=== PATIENT | female | born 1965 | race Caucasian/White ===

== ENCOUNTER → 2020-04-22 14:53 | Outpatient (BNVA) | payer OTHER, SELFPAY | PROVIDERS: PCP Physician Assistant; Visit Provider Surgery | DX: K43.9 Ventral hernia without obstruction or gangrene (principal); J44.9 Chronic obstructive pulmonary disease, unspecified; F17.200 Nicotine dependence, unspecified, uncomplicated; Z71.6 Tobacco abuse counseling | CPT/HCPCS: 99212 ==

== ENCOUNTER 2020-05-07 09:49 | Day surgery (SDC) | payer OTHER, SELFPAY ==
[2020-04-29 19:29] VITALS: BMI 27.1
--- NOTE | 2020-05-06 09:29 | P.CONAN_ITS ---
Documented by User: Blanca Pearl 05/06/20 09:32 HPI - Anesthesia Eval Consult details Narrative: 54yo F for Hernia Repair Epigastric with Poss PMFSH Active Problems Active Problems: All Active Problems (Updated 04/29/20 @ 19:28 by Marianela Yeboah RN) COPD (chronic obstructive pulmonary disease) (Acute) Fibromyalgia (Acute) Hypothyroid (Acute) HLD (hyperlipidemia) (Acute) Gastroparesis (Acute) Cervical spine pain (Acute) Smoker (Acute) Asthma (Acute) Epigastric hernia (Acute) Past Medical History Medical History Anxiety Arthritis Asthma Back pain COPD (chronic obstructive pulmonary disease) Depression Epigastric hernia Fibromyalgia Gastroparesis GERD (gastroesophageal reflux disease) HLD (hyperlipidemia) Hypothyroid Smoker Family History Family History Father Stroke Mother No problems noted. Family/Other Diabetes Coronary artery disease Brother No problems noted. Sister No problems noted. Surgical History Surgical History History of cholecystectomy Social History Social History Smoking Status: Current every day smoker Packs Per Day: 0.5 Cigarettes Per Day: 10.0 Years Smoked: 20 Smoked in Last 30 Days: Yes Patient Interested in Nicotine Replacement: No Use of substances other than those prescribed or required for medical reasons: Yes Substance Use Frequency: Weekly Advance Directives: No Advance Directives Information Provided: No Advance Directives on File: No Recently lost weight without trying: No Meds Allergies Allergy/AdvReac Type Severity Reaction Status Date / Time amoxicillin Allergy Mild Constipatio Verified 05/07/20 10:17 n Home Medications Medication Instructions Recorded Confirmed Last Taken Type benztropine 1 mg tablet 1 mg PO .daily at bedtime tab 12/29/19 04/29/20 Unknown History docusate sodium 100 mg capsule 100 mg PO BID 12/29/19 04/29/20 Unknown History levothyroxine 75 mcg tablet 75 mcg PO DAILY 12/29/19 04/29/20 05/07/20 09:45 History loperamide 2 mg tablet 2 mg PO Q6H PRN 12/29/19 04/29/20 Unknown History sertraline 100 mg tablet 100 mg PO .2 tablets once a day 12/29/19 04/29/20 Unknown History tab cholecalciferol (vitamin D3) 50 50 mcg PO DAILY 04/12/20 04/29/20 Unknown History mcg (2,000 unit) capsule clonazepam 0.5 mg tablet 0.5 mg PO BID PRN 04/12/20 04/29/20 05/07/20 09:45 History mirtazapine 30 mg tablet 30 mg PO BEDTIME 04/12/20 04/29/20 Unknown History omeprazole 20 mg capsule,delayed 40 mg PO DAILY 04/12/20 04/29/20 05/07/20 09:45 History release risperidone 1 mg tablet 1 mg PO BEDTIME 04/12/20 04/29/20 Unknown History psyllium husk (with sugar) 3 1 tbsp PO DAILY 04/22/20 04/29/20 Unknown History gram/7 gram oral powder riboflavin (vitamin B2) 100 mg 200 mg PO BID 04/22/20 04/29/20 Unknown History tablet Exam Exam Date and Time: May 06, 2020 0929 Height,Weight and Vital Signs: Height 5 ft Weight 63.049 kg Assessment and Plan Assessment Anesthesia Assessment: Chart Reviewed Documented by User: Claribel Franklin 05/07/20 12:17 [facility] Past Medical History Medical History Anxiety Arthritis Asthma Back pain COPD (chronic obstructive pulmonary disease) Depression Epigastric hernia Fibromyalgia Gastroparesis GERD (gastroesophageal reflux disease) HLD (hyperlipidemia) Hypothyroid Smoker Family History Family History Father Stroke Mother No problems noted. Family/Other Diabetes Coronary artery disease Brother No problems noted. Sister No problems noted. Family history of problems with anesthesia: No Surgical History Surgical History History of cholecystectomy History of Problems with Anesthesia: No Social History Social History Smoking Status: Current every day smoker Packs Per Day: 0.5 Cigarettes Per Day: 10.0 Years Smoked: 20 Smoked in Last 30 Days: Yes Patient Interested in Nicotine Replacement: No Use of substances other than those prescribed or required for medical reasons: Yes Substance Use Frequency: Weekly Advance Directives: No Advance Directives Information Provided: No Advance Directives on File: No Recently lost weight without trying: No Meds Allergies Allergy/AdvReac Type Severity Reaction Status Date / Time amoxicillin Allergy Mild Constipatio Verified 05/07/20 10:17 n Home Medications Medication Instructions Recorded Confirmed Last Taken Type benztropine 1 mg tablet 1 mg PO .daily at bedtime tab 12/29/19 04/29/20 Unknown History docusate sodium 100 mg capsule 100 mg PO BID 12/29/19 04/29/20 Unknown History levothyroxine 75 mcg tablet 75 mcg PO DAILY 12/29/19 04/29/20 05/07/20 09:45 History loperamide 2 mg tablet 2 mg PO Q6H PRN 12/29/19 04/29/20 Unknown History sertraline 100 mg tablet 100 mg PO .2 tablets once a day 12/29/19 04/29/20 Unknown History tab cholecalciferol (vitamin D3) 50 50 mcg PO DAILY 04/12/20 04/29/20 Unknown History mcg (2,000 unit) capsule clonazepam 0.5 mg tablet 0.5 mg PO BID PRN 04/12/20 04/29/20 05/07/20 09:45 History mirtazapine 30 mg tablet 30 mg PO BEDTIME 04/12/20 04/29/20 Unknown History omeprazole 20 mg capsule,delayed 40 mg PO DAILY 04/12/20 04/29/20 05/07/20 09:45 History release risperidone 1 mg tablet 1 mg PO BEDTIME 04/12/20 04/29/20 Unknown History psyllium husk (with sugar) 3 1 tbsp PO DAILY 04/22/20 04/29/20 Unknown History gram/7 gram oral powder riboflavin (vitamin B2) 100 mg 200 mg PO BID 04/22/20 04/29/20 Unknown History tablet Exam Height,Weight and Vital Signs: Vital Signs Temp Pulse Resp BP Pulse Ox 05/07/20 10:39 97.4 F 75 24 H 121/77 94 Airway Mallampati Class: II TM Dist: >3cm Neck ROM: Full Denture: Upper and Lower Heart: RRR Lungs: CTAB Assessment and Plan Assessment Anesthesia Assessment: Anesthesia Plan Discussed and Chart Reviewed Final Anesthetic Review NPO: Yes ASA Class: II Final Preanesthetic Review: No Changes in Pt Med Stat, Meds/Allgs Chart Reviewed, Consent Obtained/Reviewed and Anes Risks/Benef Reviewed Patient Risk: Intermediate Procedure Risk: Low Assessment/Block/Sedation in SS: Assess/Block/Sedation-SS Anesthetic Plan Anesthetic Plan: GA Disposition: Standard PACU
[2020-05-07] VITALS (11 sets, daily range): BP systolic 100–138; BP diastolic 52–77; PULSE 75–93; RESP 14–24; TEMP 36.3–37.1; O2SAT 94–100
[2020-05-07] MEDS: Lactated Ringers 1,000 ML 100 ML IVCONT (10:54)
[2020-05-07] MEDS: Albuterol Sulfate (0.083%) 2.5 MG/3 ML VIAL.NEB INHALE (11:04)
--- NOTE | 2020-05-07 11:54 | MHC.SHP ---
Pre-Procedural Eval Section B Chief Complaint: Epigastric hernia Allergies: Allergies Allergy/AdvReac Type Severity Reaction Status Date / Time amoxicillin Allergy Mild Constipatio Verified 05/07/20 10:17 n Plan I have reviewed the history and physical and performed a pertinent physical examination on my patient. No changes have occurred unless specified.
--- NOTE | 2020-05-07 12:28 | PC.NURSE ---
pt lung sounds tight with expiratory wheezing noted. sob with dressing/getting into bed. Dr. Franklin informed. pt received an up draft. resp easy and reg lung sounds better airflow with slight exp wheeze noted bilat.
--- NOTE | 2020-05-07 13:05 | W.PM.OPN ---
Operative Note Operative Note Date of Service: 05/07/20 Narrative: Preop diagnosis: Epigastric hernia Postop diagnosis: Epigastric hernia Procedure: Repair of epigastric hernia with Ventralex mesh Surgeon: Kaz Peralta MD architectural administrative assistant: KEERTHI Miles The patient is a 54-year-old female with a reducible mass on the epigastric area. This was consistent with an epigastric hernia. She describes pain and discomfort. She therefore wanted to proceed with repair. She understood technique of repair with mesh. She was aware of the risks, benefits, and alternatives. She was brought to the operating room placed supine on the table under general anesthesia via laryngeal mask airway. The abdomen is prepped and draped this herself fashion. A surgical time-out was done. The patient received cefazolin 2 g IV preoperatively. I infiltrated the planned line incision with lidocaine 1%. The incision was made on the skin long which was only using blade 15. This carried down to full-thickness skin subcutaneous fat. We continued to dissect through the thick subcutaneous fat with electrocautery as well as Metzenbaum scissors until we reached the fascia. By doing so able to visualize the fascial defect. The hernia sac was also seen. We continued to dissect the sac around the fascia to separate this from the fascial edge. This was done with sharp dissection using electrocautery. We were able to then completely reduce the hernia sac completely through the defect. The hernia was fat containing and did not involve any bowel loop. I proceeded to sharply dissect the rest of the adhesions tethering the sac to the fascial edge to allow as good margins around the underside of the defect for placement of the mesh. The defect was about 2 cm in diameter. I therefore used a small sized Ventralex mesh. This was position underneath the abdominal wall and was flattened. This provided adequate coverage of the entire fascial defect. I secured the Prolene straps of the mesh to the fascial edge with Prolene 2 sutures on both sides. The Prolene straps were then trimmed flushed on the fascial level. I closed the fascia with a [id number] Maxon 1 stitch. Irrigation was done. The subcutaneous layer was reapposed with Dexon 3-0 sutures. Skin closure achieved with Dexon 4-0 subcuticular running stitch. Steri-Strips and dressings were applied. The incision was infiltrated with Marcaine 0.5% for postop analgesia. The procedure was then completed The patient tolerated the procedure well. No immediate complications were noted. Initial and final counts of sponges and instruments were correct. Estimated blood loss about 2 cc. The patient was extubated without difficulty and transferred to recovery room with stable vital signs.
[2020-05-07] MEDS: ondansetron HCL 4 MG/2 ML VIAL IVPUSH (13:39)
[2020-05-07] MEDS: fentaNYL citrate/PF 100 MCG/2 ML VIAL 25 MCG IVPUSH ×4 (13:40→13:55)
[2020-05-07] MEDS: Acetaminophen 325 MG TABLET 650 MG PO (14:02)
[2020-05-07] MEDS: oxyCODONE HCl Immed Release 5 MG TABLET PO (14:02)
== END 2020-05-07 15:10 | disposition home or self-care (01) ==
PROVIDERS: PCP Physician Assistant; Visit Provider Surgery
PROC: (CPT 49570; principal; 2020-05-07 12:40)
DX: K43.9 Ventral hernia without obstruction or gangrene (principal); K66.0 Peritoneal adhesions (postprocedural) (postinfection); J44.9 Chronic obstructive pulmonary disease, unspecified; Z90.49 Acquired absence of other specified parts of digestive tract; F17.210 Nicotine dependence, cigarettes, uncomplicated; Z79.899 Other long term (current) drug therapy
CPT/HCPCS: 49570; 94640; C1781; J0690; J1100; J2250; J2405; J2765; J3010

== ENCOUNTER → 2020-05-31 13:15 | Outpatient (BNVA) | payer OTHER, SELFPAY | PROVIDERS: PCP Physician Assistant; Visit Provider Surgery | DX: Z48.815 Encounter for surgical aftercare following surgery on the digestive system (principal); Z87.19 Personal history of other diseases of the digestive system | CPT/HCPCS: 99212 ==

== ENCOUNTER → 2020-07-01 15:00 | Outpatient (BNVA) | payer OTHER, SELFPAY | PROVIDERS: PCP Physician Assistant; Visit Provider Nurse Practitioner | DX: K31.84 Gastroparesis (principal); K58.2 Mixed irritable bowel syndrome; K21.9 Gastro-esophageal reflux disease without esophagitis; K90.89 Other intestinal malabsorption | CPT/HCPCS: Q3014 ==

== ENCOUNTER → 2021-01-03 10:47 | Outpatient (BNVA) | payer OTHER, SELFPAY | PROVIDERS: PCP Physician Assistant; Visit Provider Nurse Practitioner | DX: Z13.89 Encounter for screening for other disorder (principal) | CPT/HCPCS: Q3014 ==

== ENCOUNTER 2021-12-12 17:53 | Emergency (ER) | payer OTHER, SELFPAY ==
--- NOTE | ~2021-12-12 | XR_ITS ---
EXAMINATION: XR CHEST CLINICAL INFORMATION: Cough COMPARISON: 05/05/2019 TECHNIQUE: 2 views of the chest were obtained. FINDINGS: No significant abnormality is noted involving the heart, lungs, mediastinum, bony thorax or soft tissues. XR/XR chest 2V IMPRESSION: Unremarkable examination.
[2021-12-12 20:07] VITALS: BP 143/82; PULSE 105; RESP 16; TEMP 36.9; O2SAT 92; BMI 27.3
[2021-12-12 23:47] VITALS: BP 140/72; PULSE 100; RESP 14; O2SAT 98
[2021-12-12] MEDS: Lidocaine 4 % Patch ADH..PATCH 1 PATCH TRANSDERMA (23:52)
[2021-12-12] MEDS: Ibuprofen 400 MG TABLET PO (23:53)
[2021-12-12] MEDS: Acetaminophen 325 MG TABLET 975 MG PO (23:53)
[2021-12-13 00:14] LABS: COVID-19 Test Negative (Negative); IDNOW Serial# 16C4AD1C
--- NOTE | 2021-12-13 00:25 | ED.GENADULT ---
HPI - General Adult General Chief complaint: Extremity Problem Stated complaint: neck pain x2 days Time Seen by Provider: 12/12/21 23:34 Source: patient Mode of arrival: ambulatory History of Present Illness HPI narrative: 56-year-old female, current everyday smoker presents with right-sided neck pain that developed after she ?took her trash out and then attempted to lift her dog up onto the couch. Patient states that the dog weighs 25 lb. Patient states that since that time her neck has progressively become more ?stiff?. Otherwise, patient denies any fever, chills. Related Data Home Medications Medication Instructions Recorded Confirmed benztropine 1 mg tablet 1 mg PO .daily at bedtime 12/29/19 05/19/21 sertraline 100 mg tablet 100 mg PO .2 tablets once a day 12/29/19 05/19/21 cholecalciferol (vitamin D3) 50 50 mcg PO DAILY 04/12/20 05/19/21 mcg (2,000 unit) capsule clonazepam 0.5 mg tablet 0.5 mg PO BID PRN Anxiety 04/12/20 05/19/21 mirtazapine 30 mg tablet 30 mg PO BEDTIME 04/12/20 05/19/21 risperidone 1 mg tablet 1 mg PO BEDTIME 04/12/20 05/19/21 riboflavin (vitamin B2) 100 mg 200 mg PO BID 04/22/20 05/19/21 tablet docusate sodium 100 mg capsule 100 mg PO DAILY 05/19/21 05/19/21 (Colace) Previous Rx's Medication Instructions Recorded cholestyramine (with sugar) 4 gram 4 g PO BID 30 days #60 ea 01/03/21 powder for susp in a packet omeprazole 20 mg capsule,delayed 40 mg PO DAILY 90 days #180 caps 01/03/21 release psyllium husk (with sugar) 3 1 tbsp PO DAILY 30 days #369 grams 01/03/21 gram/7 gram oral powder nicotine (polacrilex) 2 mg gum 2 mg buccal Q2H 30 days #110 ea 05/19/21 (Nicorette) metoclopramide HCl 5 mg tablet 5 mg PO TID #90 tabs 07/27/21 albuterol sulfate 2.5 mg/3 mL 2.5 mg (3 mL) inhalation Q6H PRN 08/12/21 (0.083 %) solution for nebulization shortness of breath or wheezing 30 days #360 mL levothyroxine 75 mcg tablet 75 mcg PO DAILY #90 tabs 08/29/21 [id number] 2 cap PO TID #180 caps 10/25/21 24,000-76,000-120,000 unit capsule,delayed rel (Creon) acetaminophen 325 mg tablet 650 mg PO Q6H PRN for fever #240 11/03/21 tabs cyclobenzaprine 10 mg tablet 10 mg PO TID #90 tabs 11/28/21 albuterol sulfate 90 mcg/actuation 2 puff inhalation Q4H PRN for 12/06/21 aerosol inhaler wheezing #8.5 grams cyclobenzaprine 5 mg tablet 5 mg PO BEDTIME PRN muscle spasm 12/13/21 #4 tabs Allergies Allergy/AdvReac Type Severity Reaction Status Date / Time amoxicillin Allergy Mild Constipatio Verified 05/19/21 14:57 n Review of Systems Review of Systems: Pertinent positives and negatives as stated in HPI 10 point review of systems is otherwise negative. REPLACED BY [facility] Past Medical History Source: nursing notes reviewed Medical History Anxiety Arthritis Asthma Back pain COPD (chronic obstructive pulmonary disease) Depression Epigastric hernia Fibromyalgia Gastroparesis GERD (gastroesophageal reflux disease) HLD (hyperlipidemia) Hypothyroid Smoker Surgical History History of cholecystectomy History of esophagogastroduodenoscopy (EGD) History of hernia repair Hx of colonoscopy Family History Family History Father Stroke Mother No problems noted. Family/Other Diabetes Coronary artery disease Brother No problems noted. Sister No problems noted. Social History Social History Housing: House Alcohol intake: current Alcohol intake frequency: does not drink Patient Tobacco Use Status: Current everyday Tobacco user Tobacco use type: Cigarette Cigarette Packs Per Day: 0.5 Cigarettes Per Day: 10.0 Years Smoked: 20 Advance Directives: No Current occupational status: disabled Physical Exam ED Vital Signs: Vital Signs - 24 hr 12/12/21 20:07 12/12/21 23:47 Temperature 98.4 F Pulse Rate 105 H 100 Respiratory Rate 16 14 Blood Pressure 143/82 H 140/72 H Pulse Oximetry 92 98 Oxygen Delivery Method Room Air Room Air BMI result Body Mass Index 27.3 VITAL SIGNS: Reviewed. GENERAL: Well nourished, in no acute distress. HEAD: Normocephalic/atraumatic EYES: PERRLA, EOMI EARS: Ext canals without abnormality NOSE: Nares patent bilateral OROPHARYNX: no oral lesions noted, posterior pharynx clear NECK: Supple, no adenopathy, no midline cervical spine tenderness, obvious muscle spasm noted at the trapezius of neck base LUNGS: Normal breath sounds. No adventitious sounds or accessory muscle use. SpO2<98> CARDIOVASCULAR: Regular rate and rhythm without noted murmurs ABDOMEN: Soft, non-tender, non-distended with bowel sounds. MUSCULOSKELETAL: No tenderness, deformities, or effusions noted on gross inspection. EXTREMITIES: No cyanosis, clubbing or edema. SKIN: Inspection of the skin reveals no rashes NEUROLOGIC: Alert and oriented x 4. Strength and sensation to light touch were grossly intact x 4. Course Course Course Narrative: 56F with history and clinical presentation c/w MSK pain and muscle spasm, but due to smoking histoyr obtained CXR which was negative for acute findings and COVID negative.On re-eval pt is feeling better and will be discharged home in stable condition. Medical Decision Making Lab Data Labs: Lab Results 12/12/21 Range/Units 23:47 COVID-19 (OSBALDO) Negative (Negative) COVID-19 Clin Com See Note Discharge Plan Discharge Clinical Impression: Muscle spasm, Musculoskeletal pain Patient Disposition: Home, Self-Care Instructions: Musculoskeletal Pain (ED), Muscle Spasm (ED) Additional Instructions: 1. Resume all home medications as prescribed. 2. Tylenol 1000mg orally every 6hrs as needed for pain control. Do not exceed 4000mg within 24hrs. 3. Ibuprofen 400mg orally with milk/food every 6hrs as needed for pain control. 4. Lidocaine patch, apply to area of maximal tenderness as directed on the outside packaging. 5. Follow up with your primary care doctor n the next 1-2 days for re-evaluation. Return to the ER for any worsening symptoms. Prescriptions: New cyclobenzaprine 5 mg tablet 5 mg PO BEDTIME PRN (Reason: muscle spasm) Qty: 4 0RF No Action metoclopramide HCl 5 mg tablet 5 mg PO TID Qty: 90 6RF albuterol sulfate 2.5 mg /3 mL (0.083 %) solution for nebulization 2.5 mg inhalation Q6H PRN (Reason: shortness of breath or wheezing) 30 Days Qty: 360 3RF levothyroxine 75 mcg tablet 75 mcg PO DAILY Qty: 90 2RF Creon 24,000-76,000 -120,000 unit capsule,delayed release(DR/EC) 2 cap PO TID Qty: 180 6RF acetaminophen 325 mg tablet 650 mg PO Q6H PRN (Reason: for fever) Qty: 240 3RF cyclobenzaprine 10 mg tablet 10 mg PO TID Qty: 90 1RF albuterol sulfate 90 mcg/actuation HFA aerosol inhaler 2 puff inhalation Q4H PRN (Reason: for wheezing) Qty: 8.5 4RF mirtazapine 30 mg tablet 30 mg PO BEDTIME clonazepam 0.5 mg tablet 0.5 mg PO BID PRN (Reason: Anxiety) risperidone 1 mg tablet 1 mg PO BEDTIME cholecalciferol (vitamin D3) 50 mcg (2,000 unit) capsule 50 mcg PO DAILY sertraline 100 mg tablet 100 mg PO .2 tablets once a day benztropine 1 mg tablet 1 mg PO .daily at bedtime docusate sodium [Colace] 100 mg capsule 100 mg PO DAILY nicotine (polacrilex) [Nicorette] 2 mg gum 2 mg buccal Q2H 30 Days Qty: 110 1RF riboflavin (vitamin B2) 100 mg tablet 200 mg PO BID cholestyramine (with sugar) 4 gram powder in packet 4 g PO BID 30 Days Qty: 60 6RF Rx Instructions: administer w/meal; avoid other meds within 1hr before or 4-6hr after dose omeprazole 20 mg capsule,delayed release(DR/EC) 40 mg PO DAILY 90 Days Qty: 180 1RF psyllium husk (with sugar) 3 gram/7 gram powder 1 tbsp PO DAILY 30 Days Qty: 369 6RF Referrals: Jp Monsivais PA-C [Primary Care Provider] -
[2021-12-13] MEDS: Lidocaine 4 % Patch ADH..PATCH 1 PATCH TRANSDERMA (00:30)
== END 2021-12-13 00:46 | disposition home or self-care (01) ==
PROVIDERS: Emergency Provider Student in an Organized Health Care Education/Training Program; PCP Physician Assistant
DX: M79.12 Myalgia of auxiliary muscles, head and neck (principal); M54.2 Cervicalgia; F17.210 Nicotine dependence, cigarettes, uncomplicated; Z20.822 Contact with and (suspected) exposure to COVID-19
CPT/HCPCS: 71046; 87635; 99283

== ENCOUNTER 2022-05-24 14:30 | Emergency (ER) | payer OTHER, SELFPAY ==
--- NOTE | ~2022-05-24 | CT_ITS ---
EXAMINATION: CT head/brain wo IV con CLINICAL INFORMATION: Reason for Exam new onset seizure COMPARISON: CT head without contrast 09/13/2018 TECHNIQUE: Contiguous axial imaging was performed from the skull base to vertex without intravenous contrast. Sagittal and coronal reformatted images were obtained. This CT examination was performed using dose optimization techniques as appropriate, variously including the following: * Automated exposure control * Adjustment of mA and/or kV according to patient size (this includes techniques or standardized protocols for targeted exams where dose is matched to indication/reason for exam; i.e. extremities or head) Use of iterative reconstruction technique DLP: 547 mGy-cm FINDINGS: No acute osseous or soft tissue abnormality. The mastoid air cells and visualized portions of the paranasal sinuses are well aerated. There is no evidence of acute intracranial hemorrhage or territorial infarction. No abnormal mass effect or midline shift is seen. [place]iu to white matter differentiation is well preserved. No extra-axial fluid collections are identified. No hydrocephalus. No significant volume loss. There is no abnormal attenuation within the brain parenchyma. CT/CT head/brain wo IV con IMPRESSION: No acute intracranial abnormality including hemorrhage, mass effect, hydrocephalus, or acute territorial edematous infarction.
--- NOTE | ~2022-05-24 | XR_ITS ---
EXAMINATION: XR CHEST CLINICAL INFORMATION: Seizure COMPARISON: 12/12/2021 TECHNIQUE: 2 views of the chest were obtained. FINDINGS: The lungs are well expanded. There is no focal consolidation, edema, or effusion. No pneumothorax. The cardiomediastinal silhouette is within normal limits. No acute osseous abnormality. XR/XR chest 2V IMPRESSION: Clear lungs.
[2022-05-24 14:37] VITALS: BP 143/78; PULSE 112; O2SAT 97
[2022-05-24 14:39] VITALS: BP 128/75; PULSE 111; RESP 19; TEMP 36.6; O2SAT 88; BMI 25.0
--- NOTE | 2022-05-24 14:40 | ECG_ITS ---
Test Reason : SEIZURE Blood Pressure : / mmHG Vent. Rate : 101 BPM Atrial Rate : 101 BPM P-R Int : 148 ms QRS Dur : 098 ms QT Int : 348 ms P-R-T Axes : 062 072 046 degrees QTc Int : 451 ms Sinus tachycardia Possible Left atrial enlargement RSR' or QR pattern in V1 suggests right ventricular conduction delay Septal infarct , age undetermined Abnormal ECG When compared with ECG of 18-APR-2017 15:07, Vent. rate has increased BY 39 BPM RSR' pattern in V1 is now Present Referred By: Matt Crawley Electronically Signed By:CHARLEEN DIAZ
--- NOTE | 2022-05-24 14:42 | ED.GENADULT ---
HPI - General Adult General Chief complaint: Seizure Stated complaint: Witnessed seizures per EMS Time Seen by Provider: 05/24/22 14:32 Source: patient, EMS and old records reviewed Limitations: altered mental status History of Present Illness HPI narrative: Patient presents with an apparent new onset seizure History of gastroparesis, bipolar disorder, COPD, tobacco use disorder. Apparently had a 10 minute episode of full tonic clonic activity associated with urinary and fecal incontinence. No known history of prior similar episode. After the episode, per EMS, she was confused and initially combative. She eventually became more calm and cooperative but still confused. The episode was witnessed by her housemate, with the last 2 minutes witnessed by BLS on scene. No known tongue biting at this time. According to her housemate, per EMS, the patient felt generally unwell today but there are no specific description of her symptoms. Related Data Home Medications Medication Instructions Recorded Confirmed benztropine 1 mg tablet 1 mg PO .daily at bedtime 12/29/19 05/19/21 sertraline 100 mg tablet 100 mg PO .2 tablets once a day 12/29/19 05/19/21 cholecalciferol (vitamin D3) 50 50 mcg PO DAILY 04/12/20 05/19/21 mcg (2,000 unit) capsule clonazepam 0.5 mg tablet 0.5 mg PO BID PRN Anxiety 04/12/20 05/19/21 mirtazapine 30 mg tablet 30 mg PO BEDTIME 04/12/20 05/19/21 risperidone 1 mg tablet 1 mg PO BEDTIME 04/12/20 05/19/21 riboflavin (vitamin B2) 100 mg 200 mg PO BID 04/22/20 05/19/21 tablet docusate sodium 100 mg capsule 100 mg PO DAILY 05/19/21 05/19/21 (Colace) Previous Rx's Medication Instructions Recorded cholestyramine (with sugar) 4 gram 4 g PO BID 30 days #60 ea 01/03/21 powder for susp in a packet psyllium husk (with sugar) 3 1 tbsp PO DAILY 30 days #369 grams 01/03/21 gram/7 gram oral powder nicotine (polacrilex) 2 mg gum 2 mg buccal Q2H 30 days #110 ea 05/19/21 (Nicorette) albuterol sulfate 2.5 mg/3 mL 2.5 mg (3 mL) inhalation Q6H PRN 08/12/21 (0.083 %) solution for nebulization shortness of breath or wheezing 30 days #360 mL [id number] 2 cap PO TID #180 caps 10/25/21 24,000-76,000-120,000 unit capsule,delayed rel (Creon) cyclobenzaprine 5 mg tablet 5 mg PO BEDTIME PRN muscle spasm 12/13/21 #4 tabs ibuprofen 800 mg tablet 800 mg PO Q8H PRN pain 10 days #30 12/13/21 tabs lidocaine 5 % topical patch 1 patch topical DAILY 15 days #15 12/13/21 ea albuterol sulfate 90 mcg/actuation 2 puff inhalation Q4H PRN for 04/09/22 aerosol inhaler wheezing #8.5 grams acetaminophen 325 mg tablet 650 mg PO Q6H PRN for fever 10 05/08/22 days #80 tabs cyclobenzaprine 10 mg tablet 10 mg PO TID #30 tabs 05/08/22 levothyroxine 75 mcg tablet 75 mcg PO DAILY #90 tabs 05/08/22 metoclopramide HCl 5 mg tablet 5 mg PO TID #90 tabs 05/16/22 omeprazole 20 mg capsule,delayed 40 mg PO DAILY #180 caps 05/17/22 release aspirin 81 mg tablet,delayed 81 mg PO DAILY #30 tabs 05/24/22 release (Adult Aspirin Regimen) atorvastatin 80 mg tablet 80 mg PO DAILY #20 tabs 05/24/22 calcium acetate 667 mg tablet 667 mg PO TID #30 tabs 05/24/22 metoprolol succinate 25 mg 12.5 mg PO DAILY #14 tabs 05/24/22 tablet,extended release 24 hr nitroglycerin 0.4 mg sublingual 0.4 mg sublingual Q5M PRN chest 05/24/22 tablet pain #14 tabs potassium chloride 10 mEq 10 meq PO BID #30 tabs 05/24/22 tablet,extended release Allergies Allergy/AdvReac Type Severity Reaction Status Date / Time amoxicillin Allergy Mild Constipatio Verified 05/19/21 14:57 n Review of Systems Review of Systems: Unable to obtain review of systems secondary to mental status change [facility] Past Medical History Medical History Anxiety Arthritis Asthma Back pain COPD (chronic obstructive pulmonary disease) Depression Epigastric hernia Fibromyalgia Gastroparesis GERD (gastroesophageal reflux disease) HLD (hyperlipidemia) Hypothyroid Smoker Surgical History History of cholecystectomy History of esophagogastroduodenoscopy (EGD) History of hernia repair Hx of colonoscopy Family History Family History Father Stroke Mother No problems noted. Family/Other Diabetes Coronary artery disease Brother No problems noted. Sister No problems noted. Social History Social History (Reviewed 12/13/21 @ 00: by Amaya Anderson MD) Housing: House Alcohol intake: unknown Patient Tobacco Use Status: Current everyday Tobacco user Tobacco use type: Cigarette Cigarette Packs Per Day: 0.5 Cigarettes Per Day: 10.0 Years Smoked: 20 Smoked in Last 30 Days: Yes Use of substances other than those prescribed or required for medical reasons: Unknown Advance Directives: No Advance Directives Information Provided: Yes Patient : No Current occupational status: disabled Physical Exam ED Vital Signs: Vital Signs - 24 hr 05/24/22 14:39 05/24/22 15:50 05/24/22 19:29 Temperature 98 F 98.8 F Pulse Rate 111 H 107 H 105 H Respiratory Rate 19 16 16 Blood Pressure 128/75 122/73 Pulse Oximetry 88 L 93 Oxygen Delivery Method Room Air Room Air BMI result Body Mass Index 25.0 Const Other: Patient is currently awake and cooperative. She is minimally verbal and unable to give a history. She does answer yes and no but it is unclear if the answers are reliable at this time. No obvious signs of trauma noted. She is incontinent of urine and stool HENMT Other: Normocephalic. Contusion to left side of scalp. Resp Other: Diminished bilaterally. No respiratory distress. Oxygen saturation in the 90s Cardio Other: Regular rate and rhythm without murmurs rubs or gallops GI Other: Soft, nondistended. No obvious tenderness Skin Other: Warm pink and dry without diaphoresis or rash Neuro Other: Patient is currently confused but does not have any obvious focal neuro deficit. She is moving all 4 extremities Medications Administered Discontinued Medications Generic Name Dose Route Start Last Admin Trade Name Freq PRN Reason Stop Dose Admin Albuterol Sulfate 2.5 mg 05/24/22 14:58 05/24/22 15:46 Albuterol Sulfate (0.083%) 2.5 Mg/3 Ml Vial.Eugenio INHALE 05/24/22 14:59 2.5 mg ONCE ONE Administration Aspirin 325 mg 05/24/22 17:29 05/24/22 18:05 Aspirin Enteric Coated 325 Mg Tablet. PO 05/24/22 17:30 325 mg ONCE ONE Administration Sodium Chloride 500 mls @ 500 mls/hr 05/24/22 14:45 05/24/22 18:02 Ns IV 05/24/22 15:44 Infused .Q1H MARLIN Infusion Potassium Chloride 10 meq in 100 mls @ 100 mls/hr 05/24/22 16:30 05/24/22 18:03 Potassium Chloride/H20 IV 05/24/22 18:29 100 mls/hr Q1H MARLIN Administration Ipratropium [place] 0.25 mg 05/24/22 14:58 05/24/22 15:46 Ipratropium [place] 0.5 Mg/2.5 Ml Solution INHALE 05/24/22 14:59 0.25 mg ONCE ONE Administration Ondansetron HCl 4 mg 05/24/22 14:58 05/24/22 15:01 Ondansetron Hcl 4 Mg/2 Ml Vial IVPUSH 05/24/22 14:59 4 mg ONCE ONE Administration Medical Decision Making Medical Decision Making MDM Narrative: Patient with apparent new onset tonic-clonic seizure. Currently appearing postictal. Differential includes intracranial hemorrhage, stroke less likely, new presentation of epilepsy, electrolyte imbalance, toxic ingestion. Will start with CT scan. Oxygen saturation here in the emergency department is 88%. Will treat with oxygen for now. Chest x-ray possible aspiration or pneumonia. 17:37. Re-evaluation of patient shows she is feeling much better. She denies any new pain. Her workup is significant for multiple abnormalities. Her 1st troponin was 22. Her 2nd troponin is 132. Treated with aspirin. Will repeat EKG and discussed with Cardiology. She denies chest pain at the moment. She states she has had episodes of chest pain typically daily over the last month or 2 lasting 5-10 minutes and resolving spontaneously. No prior cardiac history. Her electrolytes show a calcium is 7.5 and a potassium of 2.3. Potassium IV ordered. I discussed these findings with the patient. She states she does not want stay in the hospital as she needs to take care of her dog and there is no to taking care of the dog. I stressed the importance of staying at as she could have a potentially fatal outcome secondary to cardiac arrest. Will try to call her roommate to see if she can take care of her dog. 19:45. Repeat EKG shows no significant changes from prior EKG. It is still without evidence of ischemic changes acutely. I discussed all of the results with the patient who is still adamant about going home. I will discharge her home against medical advice. Prescription for aspirin as well as nitroglycerin and urgent follow-up with Neurology and Cardiology. Patient understands she can return at any time for re-evaluation and hospitalization Lab Data 05/24/22 15:08 05/24/22 15:08 Labs: Lab Results 05/24/22 05/24/22 05/24/22 Range/Units 15:08 15:08 15:08 WBC 10.3 (4.8-10.8) X10*3/uL RBC 4.23 (4.20-5.50) X10*6/uL Hgb 12.9 (12.0-16.0) g/dl Hct 38.9 (37.0-47.0) % MCV 92.0 (80.0-98.0) fL MCH 30.5 (27.0-33.0) pg MCHC 33.2 (31.0-35.0) g/dl RDW 14.0 (11.0-16.0) % Plt Count 238 (160-400) X10*3/uL MPV 11.5 (9.4-12.3) fL Immature Gran % (Auto) 0.9 H (0.0-0.4) % Neut % (Auto) 66.5 (45-73) % Lymph % (Auto) 22.8 (20-40) % [place] % (Auto) 6.8 (2-11) % Eos % (Auto) 2.2 (0-4) % Baso % (Auto) 0.8 (0-2) % Lymph # (Auto) 2.3 (1.2-4.9) X10*3/uL [place] # (Auto) 0.7 (0.1-1.2) X10*3/uL Eos # (Auto) 0.2 (0.0-0.4) X10*3/uL Baso # (Auto) 0.1 (0.0-0.2) X10*3/uL Abs Immat Gran (auto) 0.09 H (0.00-0.03) X10*3/uL Absolute Neuts (auto) 6.8 (2.0-8.3) x10*3/uL Absolute Nucleated RBC 0.000 (0.0-0.012) X10*3/uL Nucleated RBC % (auto) 0.0 (0.0-0.2) /100WBC PT 13.4 H (10.0-13.1) SEC INR 1.2 H (0.9-1.1) Sodium 142 (135-145) mmol/L Potassium 2.3 L* (3.3-5.1) mmol/L Chloride 109 H (96-108) mmol/L Carbon Dioxide 18 L (22-29) mmol/L Anion Gap 17 (12-20) BUN 8 L (9-16) mg/dL Creatinine 0.65 (0.5-1.4) mg/dL Estim Creat Clear Calc 83.9 Estimated GFR > 60 Random Glucose 147 H (60-115) mg/dL Lactic Acid (0.5-2.0) mmol/L Calcium 7.5 L (8.4-10.2) mg/dL Total Bilirubin 0.4 (0.0-1.0) mg/dL AST 24 (5-31) U/L ALT 20 (0-31) U/L Alkaline Phosphatase 111 (39-117) U/L Ammonia (13-55) umol/L Troponin I High Sens (<3.5-17.0) ng/L Total Protein 6.6 (6.5-8.0) g/dL Albumin 3.9 (3.5-5.0) g/dL Ethyl Alcohol mg/dL COVID-19 (OSBALDO) (Negative) COVID-19 Clin Com 05/24/22 05/24/22 05/24/22 Range/Units 15:08 15:08 15:08 WBC (4.8-10.8) X10*3/uL RBC (4.20-5.50) X10*6/uL Hgb (12.0-16.0) g/dl Hct (37.0-47.0) % MCV (80.0-98.0) fL MCH (27.0-33.0) pg MCHC (31.0-35.0) g/dl RDW (11.0-16.0) % Plt Count (160-400) X10*3/uL MPV (9.4-12.3) fL Immature Gran % (Auto) (0.0-0.4) % Neut % (Auto) (45-73) % Lymph % (Auto) (20-40) % [place] % (Auto) (2-11) % Eos % (Auto) (0-4) % Baso % (Auto) (0-2) % Lymph # (Auto) (1.2-4.9) X10*3/uL [place] # (Auto) (0.1-1.2) X10*3/uL Eos # (Auto) (0.0-0.4) X10*3/uL Baso # (Auto) (0.0-0.2) X10*3/uL Abs Immat Gran (auto) (0.00-0.03) X10*3/uL Absolute Neuts (auto) (2.0-8.3) x10*3/uL Absolute Nucleated RBC (0.0-0.012) X10*3/uL Nucleated RBC % (auto) (0.0-0.2) /100WBC PT (10.0-13.1) SEC INR (0.9-1.1) Sodium (135-145) mmol/L Potassium (3.3-5.1) mmol/L Chloride (96-108) mmol/L Carbon Dioxide (22-29) mmol/L Anion Gap (12-20) BUN (9-16) mg/dL Creatinine (0.5-1.4) mg/dL Estim Creat Clear Calc Estimated GFR Random Glucose (60-115) mg/dL Lactic Acid 1.1 (0.5-2.0) mmol/L Calcium (8.4-10.2) mg/dL Total Bilirubin (0.0-1.0) mg/dL AST (5-31) U/L ALT (0-31) U/L Alkaline Phosphatase (39-117) U/L Ammonia 65 H (13-55) umol/L Troponin I High Sens 22.2 H (<3.5-17.0) ng/L Total Protein (6.5-8.0) g/dL Albumin (3.5-5.0) g/dL Ethyl Alcohol mg/dL COVID-19 (OSBALDO) (Negative) COVID-19 Clin Com 05/24/22 05/24/22 05/24/22 Range/Units 15:08 15:08 16:39 WBC (4.8-10.8) X10*3/uL RBC (4.20-5.50) X10*6/uL Hgb (12.0-16.0) g/dl Hct (37.0-47.0) % MCV (80.0-98.0) fL MCH (27.0-33.0) pg MCHC (31.0-35.0) g/dl RDW (11.0-16.0) % Plt Count (160-400) X10*3/uL MPV (9.4-12.3) fL Immature Gran % (Auto) (0.0-0.4) % Neut % (Auto) (45-73) % Lymph % (Auto) (20-40) % [place] % (Auto) (2-11) % Eos % (Auto) (0-4) % Baso % (Auto) (0-2) % Lymph # (Auto) (1.2-4.9) X10*3/uL [place] # (Auto) (0.1-1.2) X10*3/uL Eos # (Auto) (0.0-0.4) X10*3/uL Baso # (Auto) (0.0-0.2) X10*3/uL Abs Immat Gran (auto) (0.00-0.03) X10*3/uL Absolute Neuts (auto) (2.0-8.3) x10*3/uL Absolute Nucleated RBC (0.0-0.012) X10*3/uL Nucleated RBC % (auto) (0.0-0.2) /100WBC PT (10.0-13.1) SEC INR (0.9-1.1) Sodium (135-145) mmol/L Potassium (3.3-5.1) mmol/L Chloride (96-108) mmol/L Carbon Dioxide (22-29) mmol/L Anion Gap (12-20) BUN (9-16) mg/dL Creatinine (0.5-1.4) mg/dL Estim Creat Clear Calc Estimated GFR Random Glucose (60-115) mg/dL Lactic Acid (0.5-2.0) mmol/L Calcium (8.4-10.2) mg/dL Total Bilirubin (0.0-1.0) mg/dL AST (5-31) U/L ALT (0-31) U/L Alkaline Phosphatase (39-117) U/L Ammonia (13-55) umol/L Troponin I High Sens 132.9 H* D (<3.5-17.0) ng/L Total Protein (6.5-8.0) g/dL Albumin (3.5-5.0) g/dL Ethyl Alcohol < 10 mg/dL COVID-19 (OSBALDO) Negative (Negative) COVID-19 Clin Com See Note Discharge Plan Discharge Clinical Impression: Myocardial infarction, New onset seizure Patient Disposition: Left Against Medical Advice Instructions: Heart Attack (DC), New-Onset Seizure in Adults (ED) Additional Instructions: Today you had a seizure. You will need to follow-up with a neurologist. Your workup in the emergency department was also concerning in that it showed evidence of heart attack. This is potentially life-threatening and we strongly recommend you stay in the hospital. But in the meantime will start on medication for your heart including aspirin and nitroglycerin. Other medicines for your heart are atorvastatin and metoprolol. Please follow-up with a saw cleaner as soon as possible. See referrals below Prescriptions: New metoprolol succinate 25 mg tablet extended release 24 hr 12.5 mg PO DAILY Qty: 14 0RF atorvastatin 80 mg tablet 80 mg PO DAILY Qty: 20 0RF aspirin [Adult Aspirin Regimen] 81 mg tablet,delayed release (DR/EC) 81 mg PO DAILY Qty: 30 0RF nitroglycerin 0.4 mg tablet, sublingual 0.4 mg sublingual Q5M PRN (Reason: chest pain) Qty: 14 0RF Rx Instructions: do not exceed 3 doses per episode potassium chloride 10 mEq tablet extended release 10 meq PO BID Qty: 30 0RF calcium acetate 667 mg tablet 667 mg PO TID Qty: 30 0RF No Action albuterol sulfate 2.5 mg /3 mL (0.083 %) solution for nebulization 2.5 mg inhalation Q6H PRN (Reason: shortness of breath or wheezing) 30 Days Qty: 360 3RF Creon 24,000-76,000 -120,000 unit capsule,delayed release(DR/EC) 2 cap PO TID Qty: 180 6RF ibuprofen 800 mg tablet 800 mg PO Q8H PRN (Reason: pain) 10 Days Qty: 30 0RF lidocaine 5 % adhesive patch,medicated 1 patch topical DAILY 15 Days Qty: 15 0RF Rx Instructions: leave on most painful area for up to 12 hrs albuterol sulfate 90 mcg/actuation HFA aerosol inhaler 2 puff inhalation Q4H PRN (Reason: for wheezing) Qty: 8.5 4RF acetaminophen 325 mg tablet 650 mg PO Q6H PRN (Reason: for fever) 10 Days Qty: 80 3RF levothyroxine 75 mcg tablet 75 mcg PO DAILY Qty: 90 2RF cyclobenzaprine 10 mg tablet 10 mg PO TID Qty: 30 0RF metoclopramide HCl 5 mg tablet 5 mg PO TID Qty: 90 0RF omeprazole 20 mg capsule,delayed release(DR/EC) 40 mg PO DAILY Qty: 180 0RF cyclobenzaprine 5 mg tablet 5 mg PO BEDTIME PRN (Reason: muscle spasm) Qty: 4 0RF mirtazapine 30 mg tablet 30 mg PO BEDTIME clonazepam 0.5 mg tablet 0.5 mg PO BID PRN (Reason: Anxiety) risperidone 1 mg tablet 1 mg PO BEDTIME cholecalciferol (vitamin D3) 50 mcg (2,000 unit) capsule 50 mcg PO DAILY sertraline 100 mg tablet 100 mg PO .2 tablets once a day benztropine 1 mg tablet 1 mg PO .daily at bedtime docusate sodium [Colace] 100 mg capsule 100 mg PO DAILY nicotine (polacrilex) [Nicorette] 2 mg gum 2 mg buccal Q2H 30 Days Qty: 110 1RF riboflavin (vitamin B2) 100 mg tablet 200 mg PO BID cholestyramine (with sugar) 4 gram powder in packet 4 g PO BID 30 Days Qty: 60 6RF Rx Instructions: administer w/meal; avoid other meds within 1hr before or 4-6hr after dose psyllium husk (with sugar) 3 gram/7 gram powder 1 tbsp PO DAILY 30 Days Qty: 369 6RF Referrals: Dick Mathis MD [Physician] - Edgar Burrows MD [Physician] -
[2022-05-24] MEDS: 0.9 % Sodium Chloride 500 ML IV (15:01)
[2022-05-24] MEDS: ondansetron HCL 4 MG/2 ML VIAL IVPUSH (15:01)
[2022-05-24 15:28] LABS: MANUAL DIFF FLAG NO
[2022-05-24 15:32] LABS: Basophils Absolute Auto 0.1 X10*3/uL (0.0-0.2); Basophils Percent Auto 0.8 % (0-2); Eosinophils Absolute Auto 0.2 X10*3/uL (0.0-0.4); Eosinophils Percent Auto 2.2 % (0-4); Hematocrit 38.9 % (37.0-47.0); Hemoglobin 12.9 g/dl (12.0-16.0); Imm Gran Abs Auto 0.09 X10*3/uL (0.00-0.03); Imm Gran Pct Auto 0.9 % (0.0-0.4); Lymphocytes Absolute Auto 2.3 X10*3/uL (1.2-4.9); Lymphocytes Percent Auto 22.8 % (20-40); Mean Corpuscular HGB Conc 33.2 g/dl (31.0-35.0); Mean Corpuscular Hemoglobin 30.5 pg (27.0-33.0); Mean Platelet Volume 11.5 fL (9.4-12.3); Monocytes Absolute Auto 0.7 X10*3/uL (0.1-1.2); Monocytes Percent Auto 6.8 % (2-11); Neutrophils Absolute Auto 6.8 x10*3/uL (2.0-8.3); Neutrophils Percent Auto 66.5 % (45-73); Platelet Count 238 X10*3/uL (160-400); Red Blood Count 4.23 X10*6/uL (4.20-5.50); White Blood Count 10.3 X10*3/uL (4.8-10.8)
[2022-05-24 15:37] LABS: INTERNATIONAL NORM RATIO 1.2 (0.9-1.1); Prothrombin Time 13.4 SEC (10.0-13.1)
[2022-05-24 15:41] LABS: Ammonia 65 umol/L (13-55)
[2022-05-24 15:45] LABS: Ethanol < 10 mg/dL; Lactic Acid 1.1 mmol/L (0.5-2.0)
[2022-05-24 15:46] LABS: COVID-19 Test Negative (Negative); IDNOW Serial# BCCEAD1C
[2022-05-24] MEDS: Ipratropium Bromide 0.5 MG/2.5 ML SOLUTION 0.25 MG INHALE (15:46)
[2022-05-24] MEDS: Albuterol Sulfate (0.083%) 2.5 MG/3 ML VIAL.NEB INHALE (15:46)
[2022-05-24 15:50] VITALS: PULSE 107; RESP 16; O2SAT 95
[2022-05-24 15:56] LABS: Troponin-I High Sensitivity 22.2 ng/L (<3.5-17.0)
[2022-05-24 16:08] LABS: Alanine Aminotransferase 20 U/L (0-31); Albumin Level 3.9 g/dL (3.5-5.0); Alkaline Phosphatase 111 U/L (39-117); Anion Gap 17 (12-20); Aspartate Amino Transferase 24 U/L (5-31); Bilirubin Total 0.4 mg/dL (0.0-1.0); Blood Urea Nitrogen 8 mg/dL (9-16); Calcium 7.5 mg/dL (8.4-10.2); Carbon Dioxide 18 mmol/L (22-29); Chloride 109 mmol/L (96-108); Creatinine Clr Calc Pharmacy 83.9; Estimated Glomerular Filt Rate > 60; Glucose Random 147 mg/dL (60-115); Sodium 142 mmol/L (135-145); Total Protein 6.6 g/dL (6.5-8.0)
[2022-05-24 16:09] LABS: Potassium 2.3 mmol/L (3.3-5.1)
--- NOTE | 2022-05-24 17:21 | ECG_ITS ---
Test Reason : REPEAT Blood Pressure : / mmHG Vent. Rate : 103 BPM Atrial Rate : 103 BPM P-R Int : 138 ms QRS Dur : 088 ms QT Int : 316 ms P-R-T Axes : 049 040 037 degrees QTc Int : 413 ms Sinus tachycardia Septal infarct (cited on or before 24-MAY-2022) Abnormal ECG When compared with ECG of 24-MAY-2022 15:18, No significant change was found Referred By: Matt Crawley Electronically Signed By:CHARLEEN DIAZ
[2022-05-24 17:22] LABS: Troponin-I High Sensitivity 132.9 ng/L (<3.5-17.0)
[2022-05-24] MEDS: Potassium Chloride/H20 10 MEQ/100 ML PIGGYBACK 100 MEQ IV (18:03)
[2022-05-24] MEDS: Aspirin Enteric Coated 325 MG TABLET.DR PO (18:05)
--- NOTE | 2022-05-24 18:38 | PC.NURSE ---
pt medicated per emar, denies cp at this time. adamant about going home ama. pt educated about providers aim for inpt admission w pt presentation to er. pt asking to speak with provider.
[2022-05-24 19:29] VITALS: BP 122/73; PULSE 105; RESP 16; TEMP 37.1; O2SAT 93
[2022-05-30 14:53] LABS: Calcium (PTHI) 7.8 mg/dL (8.6-10.4); PTHI 42 pg/mL (16-77)
== END 2022-05-24 21:18 | disposition left against medical advice (07) ==
PROVIDERS: Emergency Provider Emergency Medicine; PCP Physician Assistant
DX: I21.9 Acute myocardial infarction, unspecified (principal); G40.409 Other generalized epilepsy and epileptic syndromes, not intractable, without status epilepticus; S00.03XA Contusion of scalp, initial encounter; W17.89XA Other fall from one level to another, initial encounter; E87.6 Hypokalemia; E78.5 Hyperlipidemia, unspecified; F17.210 Nicotine dependence, cigarettes, uncomplicated; Y93.89 Activity, other specified; Y92.9 Unspecified place or not applicable; Y99.9 Unspecified external cause status; Z20.822 Contact with and (suspected) exposure to COVID-19; Z79.899 Other long term (current) drug therapy
CPT/HCPCS: 36415; 70450; 71046; 80053; 82077; 82140; 83605; 83970; 84484; 85025; 85610; 87635; 93005; 96361; 96365; 96366; 96375; 99285; J2405

== ENCOUNTER 2022-05-25 11:09 | Inpatient (IN) | payer OTHER, SELFPAY ==
--- NOTE | 2022-05-25 07:00 | CA_ITS ---
Transthoracic Echocardiogram Patient (Last, First, Middle): Marla Munson J Gender: Female Date of : 1965 Age: 57 Procedure Date: 05/25/2022 Procedure Type: Transthoracic Echocardiogram Location: ER Height: 152.4 cm Weight: 63.5 kg BSA: 1.60 m2 Heart Rate: bpm BP: 113 / 57 mmHg Operations Support Manager: [place] Referring MD: Stefano PENDLETON Symptoms: New onset seizure, elevated troponins Study Quality: Fair ECG Rhythm: Sinus Conclusions: - The left ventricular systolic function is normal. The visually estimated ejection fraction is between 65-70%. - No obvious valvular pathology seen on this study. Findings Left Ventricle Normal left ventricular cavity size. There is normal left ventricular wall thickness. The left ventricular systolic function is normal. The visually estimated ejection fraction is between 65-70%. There is no evidence of regional wall motion abnormalities. Diastolic function is normal for age. Right Ventricle Normal right ventricular cavity size and systolic function. Atria Both atria are normal in size. Aortic Valve There is a normal trileaflet aortic valve. There is no aortic valve stenosis. There is no aortic valve regurgitation. Mitral Valve The mitral valve appears normal. There is trace mitral valve regurgitation. There is no mitral valve stenosis. Pulmonic Valve The pulmonic valve is likely normal. Tricuspid Valve Normal tricuspid valve structure. There is trace tricuspid valve regurgitation. Tricuspid regurgitation envelope is inadequate for calculation of right ventricular systolic pressure. Great Vessels The asc aorta is normal in size. Venous The inferior vena cava is normal in size and collapses greater than 50% with inspiration. Pericardium/Pleural There is no evidence of pericardial effusion. Prior Study Comparison No prior study available for comparison. Recommendations, Care & Conclusions No obvious valvular pathology seen on this study. Measurements 2D Linear Measurements IVSd: 1.00 0.6-0.9/0.6-1.0 cm LVIDd: 3.91 3.9-5.3/4.2-5.9 cm LVIDd Index: 2.44 2.4-3.2/2.2-3.1 cm/m2 LVIDs: 2.76 2.0-3.6 cm LVPWd: 0.85 0.7-1.1 cm LA Diam: 2.90 2.7-3.8/3.0-4.0 cm LAIDs Index: 1.81 1.5-2.3 cm/m2 LV Mass: 136.17 67-162/88-224 g LV Mass Index: 85.10 43-95/49-115 g/m2 LVOT Diam: 1.70 3.0+(-)1.3 cm 2D Systolic Function EF 4C: 64.20 >55% EF 2C: 52.40 >55% EF BiP: 59.90 >55% Mitral Valve MV Pk E: 0.82 MV PK A: 0.63 MV Decel Time: 164.00 E/A: 1.30 E'Lateral: 11.30 E'Medial: 7.94 E/E' Med: 10.30 E/E' Lat: 7.20 PHT: 48.00 MVA PHT: 4.58 Decel [place]: 4.98 Aortic Valve AoV Pk Harris: 1.54 AoV Mn Harris: 1.03 AoV VTI: 0.32 AoV Pk Grad: 9.00 Aov Mn Grad: 5.00 ASHLEE Cont.VTI: 1.90 LVOT LVOT Pk Harris: 1.27 LVOT Mn Harris: 0.85 LVOT VTI: 0.27 LVOT Pk Grad: 6.00 LVOT Mn Grad: 3.00 LVOT Diam: 1.70 LVOT Area: 2.27 Diastolic Function MV Pk E: 0.82 MV Pk A: 0.63 E/A: 1.30 E'Medial: 7.94 E/E' Med: 10.30 E' Laterial: 11.30 E/E' Lat: 7.20 Right Ventricle TAPSE (mm): 19.60 TVS' Harris: 11.40 Tricuspid Valve RA Press: 3.00 Great Vessels Aorta Sinus of Valsalva: 2.89 2.0-3.[address] [place]: 2.00 1.7-3.4 cm Ao Asc: 2.90 2.1-3.4 cm Updated in Other Vendor System with Status of Final Edgar Burrows MD electronically signed on 05/26/2022 11:30:14 AM with status of Final
[2022-05-25 11:14] VITALS: BP 153/82; PULSE 104; RESP 18; TEMP 36.1; O2SAT 95; BMI 27.3
--- NOTE | 2022-05-25 11:15 | ED_ITS ---
HPI - Recheck/Abnormal Lab/Rx General Chief Complaint: Chest Pain <Felicia Huynh CNP - Last Filed: 05/25/22 11:24> Stated Complaint: Abnormal labs called to come back in <Felicia Huynh CNP - Last Filed: 05/25/22 11:24> Time Seen by Provider: 05/25/22 11:25 <Felicia Huynh CNP - Last Filed: 05/25/22 11:24> Source: patient <Pastora Noyola NP - Last Filed: 05/25/22 17:02> Mode of arrival: ambulatory <Pastora Noyola NP - Last Filed: 05/25/22 17:02> Limitations: no limitations <Pastora Noyola NP - Last Filed: 05/25/22 17:02> History of Present Illness HPI narrative: This is a 57-year-old female with history of gastroparesis, bipolar disorder, COPD who presents the ER with complaints of dizziness. Patient reports she was seen here yesterday after having a new onset seizure, NSTEMI, hypokalemia, hypocalcemia. It was recommended she be admitted but patient declined admission and left against medical advice. She was recommended to return any time if she felt she would be willing to stay for admission. Patient reports feeling generally weak and dizzy which she describes as feeling lightheaded as well as a headache. <Pastora Noyola NP - Last Filed: 05/25/22 17:02> Related Data Home Medications: Home Medications Medication Instructions Recorded Confirmed benztropine 1 mg tablet 1 mg PO .daily at bedtime 12/29/19 05/25/22 sertraline 100 mg tablet 100 mg PO DAILY 12/29/19 05/25/22 cholecalciferol (vitamin D3) 50 50 mcg PO DAILY 04/12/20 05/25/22 mcg (2,000 unit) capsule clonazepam 0.5 mg tablet 0.5 mg PO BID PRN Anxiety 04/12/20 05/25/22 mirtazapine 30 mg tablet 30 mg PO BEDTIME 04/12/20 05/25/22 risperidone 1 mg tablet 1 mg PO BEDTIME 04/12/20 05/25/22 riboflavin (vitamin B2) 100 mg 200 mg PO BID 04/22/20 05/25/22 tablet docusate sodium 100 mg capsule 100 mg PO DAILY 05/19/21 05/25/22 (Colace) cyclobenzaprine 10 mg tablet 10 mg PO TID 05/25/22 05/25/22 melatonin 3 mg tablet 1 tab PO BEDTIME PRN insomnia 05/25/22 05/25/22 Previous Rx's Medication Instructions Recorded albuterol sulfate 2.5 mg/3 mL 2.5 mg (3 mL) inhalation Q6H PRN 08/12/21 (0.083 %) solution for nebulization shortness of breath or wheezing 30 days #360 mL [id number]-[id number]-[id number] 2 cap PO TID #180 caps 10/25/21 24,000-76,000-120,000 unit capsule,delayed rel (Creon) albuterol sulfate 90 mcg/actuation 2 puff inhalation Q4H PRN for 04/09/22 aerosol inhaler wheezing #8.5 grams acetaminophen 325 mg tablet 650 mg PO Q6H PRN for fever 10 05/08/22 days #80 tabs levothyroxine 75 mcg tablet 75 mcg PO DAILY #90 tabs 05/08/22 metoclopramide HCl 5 mg tablet 5 mg PO TID #90 tabs 05/16/22 omeprazole 20 mg capsule,delayed 40 mg PO DAILY #180 caps 05/17/22 release aspirin 81 mg tablet,delayed 81 mg PO DAILY #30 tabs 05/24/22 release (Adult Aspirin Regimen) atorvastatin 80 mg tablet 80 mg PO DAILY #20 tabs 05/24/22 calcium acetate 667 mg tablet 667 mg PO TID #30 tabs 05/24/22 metoprolol succinate 25 mg 12.5 mg PO DAILY #14 tabs 05/24/22 tablet,extended release 24 hr nitroglycerin 0.4 mg sublingual 0.4 mg sublingual Q5M PRN chest 05/24/22 tablet pain #14 tabs potassium chloride 10 mEq 10 meq PO BID #30 tabs 05/24/22 tablet,extended release <Felicia Huynh [employer] - Last Filed: 05/25/22 11:24> Allergies/Adverse Reactions: Allergies Allergy/AdvReac Type Severity Reaction Status Date / Time amoxicillin Allergy Mild Constipatio Verified 05/19/21 14:57 n <Felicia Huynh, [facility] - Last Filed: 05/25/22 11:24> Review of Systems Review of Systems: Yes all other systems are reviewed and are negative <Pastora Noyola NP - Last Filed: 05/25/22 17:02> Constitutional: Constitutional: Reports no additional constitutional complaints, Denies body ache(s), Denies chills, Denies fever(s), Reports headache(s) and Reports weakness <Pastora Noyola NP - Last Filed: 05/25/22 17:02> Eyes: Eyes: Reports no additional eye complaints and Denies change in vision <Pastora Noyola NP - Last Filed: 05/25/22 17:02> ENT: Reports system reviewed and no additional complaints, except as documented, Reports dizziness, Reports headache(s), Denies nasal congestion, Denies nasal discharge and Denies neck pain <Pastora Noyola NP - Last Fi led: 05/25/22 17:02> Cardiovascular: Cardiovascular: Reports no additional cardiovascular complaints, Denies chest pain, Denies leg edema and Denies dyspnea <Pastora Noyola NP - Last Filed: 05/25/22 17:02> Respiratory: Respiratory: Reports no additional respiratory complaints, Denies cough and Denies dyspnea <Pastora Noyola NP - Last Filed: 05/25/22 17:02> Gastrointestinal: Gastrointestinal: Reports no additional gastrointestinal complaints, Denies abdominal pain, Denies diarrhea, Denies nausea and Denies vomiting <Pastora Noyola NP - Last Filed: 05/25/22 17:02> Genitourinary: Genitourinary: Reports no additional female genitourinary complaints and Denies urinary incontinence <Pastora Noyola NP - Last Filed: 05/25/22 17:02> Musculoskeletal: Musculoskeletal: Reports no additional musculoskeletal complaints, Denies back pain, Denies arthralgias, Denies joint swelling, Denies neck pain, Denies numbness and Denies tingling <Pastora Noyola [employer] - Last Filed: 05/25/22 17:02> Integumentary/Breasts: Skin/Breast: Reports system reviewed and no additional complaints, except as docu and Denies rash <Pastora Noyola NP - Last Filed: 05/25/22 17:02> Neurologic: Reports system reviewed and no additional complaints, except as documented, Denies Abnormal speech present, Reports dizziness, Reports headache(s), Denies numbness, Denies tingling and Reports weakness <Pastora Noyola NP - Last Filed: 05/25/22 17:02> [facility] Past Medical History Attestation statement: The following information was validated with the patient. <Pastora Noyola NP - Last Filed: 05/25/22 17:02> Source: old records reviewed and nursing notes reviewed <KALLI Rodriguez Filed: 05/25/22 17:02> Medical History: Medical History Anxiety Arthritis Asthma Back pain COPD (chronic obstructive pulmonary disease) Depression Epigastric hernia Fibromyalgia Gastroparesis GERD (gastroesophageal reflux disease) HLD (hyperlipidemia) Hypothyroid Smoker <Felicia Huynh CNP - Last Filed: 05/25/22 11:24> Surgical History: Surgical History History of cholecystectomy History of esophagogastroduodenoscopy (EGD) History of hernia repair Hx of colonoscopy <Felicia Huynh CNP - Last Filed: 05/25/22 11:24> Family History Family History: Family History Father Stroke Mother No problems noted. Family/Other Diabetes Coronary artery disease Brother No problems noted. Sister No problems noted. <Felicia Huynh CNP - Last Filed: 05/25/22 11:24> Social History Social History: Social History Housing: House Alcohol intake: unknown Patient Tobacco Use Status: Current everyday Tobacco user Tobacco use type: Cigarette Cigarette Packs Per Day: 0.5 Cigarettes Per Day: 10.0 Years Smoked: 20 Advance Directives: No Advance Directives Information Provided: Yes Current occupational status: disabled <Felicia Huynh CNP - Last Filed: 05/25/22 11:24> Physical Exam Vital Signs: Vital Signs: Last Vital Signs Temp 98.1 F 05/25/22 15:44 Pulse 96 05/25/22 15:44 Resp 23 H 05/25/22 15:44 BP 119/66 05/25/22 15:44 Pulse Ox 97 05/25/22 15:44 O2 Del Method 05/25/22 15:44 BMI result Body Mass Index 27.3 <Felicia Betancur Amina [employer] - Last Filed: 05/25/22 11:24> Vital Signs: Last Vital Signs Temp 98.1 F 05/25/22 15:44 Pulse 96 05/25/22 15:44 Resp 23 H 05/25/22 15:44 BP 119/66 05/25/22 15:44 Pulse Ox 97 05/25/22 15:44 O2 Del Method 05/25/22 15:44 BMI result Body Mass Index 27.3 <Pastora Noyola [employer] - Last Filed: 05/25/22 17:02> Const: General: cooperative, healthy appearing, comfortable and no acute distress <Pastora Noyola NP - Last Filed: 05/25/22 17:02> Orientation/consciousness: patient oriented x3 <Pastora Noyola NP - Last Filed: 05/25/22 17:02> Limitations: no limitations <Pastora Noyola NP - Last Filed: 05/25/22 17:02> HEENT: Head: Yes normal to inspection <Pastora Noyola NP - Last Filed: 05/25/22 17:02> Ears: hearing grossly normal bilaterally <Pastora Noyola NP - Last Filed: 05/25/22 17:02> General nose exam: Normal external nose present <Pastora Noyola NP - Last Filed: 05/25/22 17:02> Face and sinus: Yes normal facial exam <Pastora Noyola NP - Last Filed: 05/25/22 17:02> Mouth: Normal oral and palatal mucosa present <Pastora Noyola NP - Last Filed: 05/25/22 17:02> Throat: Yes posterior oropharynx normal <Pastora Noyola NP - Last Filed: 05/25/22 17:02> Eyes: General: appearance normal, both eyes and all related structures <Pastora Noyola [employer]IV[employer]IV[employer] - Last Filed: 05/25/22 17:02> Pupils: Equal, round and reactive pupils present <Pastora Noyola [employer] D[employer]IV[employer]IV[employer] - Last Filed: 05/25/22 17:02> Neck: Neck: Yes normal visual inspection <Pastora Noyola [employer] D[employer]IV[employer]IV[employer] - Last Filed: 05/25/22 17:02> Chest: Chest palpation & inspection: normal inspection of the chest <Pastora Noyola [employer] D[employer]IVATIV[employer]ADER - Last Filed: 05/25/22 17:02> Resp: Effort & Inspection: normal respiratory effort <Pastora Noyola [employer] D[employer]IVATIV[employer]ER - Last Filed: 05/25/22 17:02> Auscultation: clear to auscultation bilaterally <Pastora Noyola [employer] D[employer]IV[employer]IV[employer]ER - Last Filed: 05/25/22 17:02> Cardio: Rate: regular rate <Pastora Noyola [employer] D[employer]IVATIVES [employer]ADER - Last Filed: 05/25/22 17:02> Rhythm: regular rhythm <Pastora Noyola [employer] D[employer]IVATIV[employer]ER - Last Filed: 05/25/22 17:02> Peripheral pulses: Peripheral pulses 2+ throughout <Pastora Noyola [employer] D[employer]IVATIVES [employer]ER - Last Filed: 05/25/22 17:02> GI: Inspection: Yes normal to inspection <Pastora Noyola [employer] D[employer]IVATIVES [employer]ADER - Last Filed: 05/25/22 17:02> Palpation (GI): Soft to palpation and nontender <Pastora Noyola [employer] D[employer]IVATIV[employer]ADER - Last Filed: 05/25/22 17:02> Auscultation: normal bowel sounds <Pastora Noyola [employer] D[employer]IVATIV[employer]ER - Last Filed: 05/25/22 17:02> Back/Spine/Pelvis: Thoracic/Lumbar Spine: thoracic and lumbar spine normal to inspection <Pastora Noyola [employer] DERIVATIVES [employer]ADER - Last Filed: 05/25/22 17:02> Skin: General skin exam: no rashes or lesions noted <Pastora Noyola [employer] D[employer]IVATIVES [employer]ADER - Last Filed: 05/25/22 17:02> Neuro: General: patient oriented x3, no focal motor deficits and normal sensation to monofilament <Pastora Noyola [employer]ER[employer] DERIVATIVES TRADER - Last Filed: 05/25/22 17:02> Cranial nerves: Yes Equal, round and reactive pupils present <Pastora zaldivar NP - Last Filed: 05/25/22 17:02> Cognition (Neuro): normal cognition <Pastora Noyola [employer] DERIVATIVES TRADER - Last Filed: 05/25/22 17:02> Speech: No Abnormal speech present <Pastora Noyola NP - Last Filed: 05/25/22 17:02> Gait exam (Neuro): Normal gait present <Pastora Noyola [employer] DERIVATIVES TRADER - Last Filed: 05/25/22 17:02> Motor exam (neuro): 5/5 motor strength present throughout <Pastora Noyola NP - Last Filed: 05/25/22 17:02> Extrem: General: Yes normal to inspection, Yes no pedal edema and Yes no calf tenderness <Pastora Noyola NP - Last Filed: 05/25/22 17:02> Course Course Course Narrative: This is an RME: Additional HPI, ROS, PE not included below will be deferred to primary provider. Patient is a 57-year-old female who presents emergency department for reportedly abnormal labs. She was Seen in the emergency department yesterday 05/24/2022, for new onset seizure and myocardial infarction, at the time she was also noted to have hypocalcemia and hypokalemia, trending troponins though asymptomatic and without EKG changes, it was recommended that she stay in the hospital however she declined and left against medical advice. She states that she received a call today from [facility] advising that her blood test results were abnormal and she should come back to the emergency department. At this point she states that she is willing to stay in the hospital as she has found someone to take care of her dog. She is currently reporting headache and pains in her jaw. Plan: spoke with scrap charger, patient moved back to room 21, labs and EKG were ordered, spoke with ED attending Dr. Gilmore, made aware of patient <Felicia Huynh CNP - Last Filed: 05/25/22 11:24> Reevaluation(s) Reevaluation #1: 1400-patient with hypo magnesemia, hypokalemia, hypocalcemia. Patient to receive supplement. Initial troponin is mildly elevated. However when compared to troponins from 05/24 this is actually decreased. No EKG changes. Will plan to repeat troponin <Pastora Noyola NP - Last Filed: 05/25/22 17:02> Medications Administered Generic Name Dose Route Start Last Admin Trade Name Freq PRN Reason Stop Dose Admin Enoxaparin Sodium 40 mg 05/25/22 15:30 05/25/22 16:08 Enoxaparin Sodium 40 Mg/0.4 Ml Syringe SUBCUT 40 mg Q24H MARLIN Administration Magnesium Sulfate 2 gm in 50 mls @ 25 mls/hr 05/25/22 15:13 05/25/22 16:08 Magnesium Sulfate/H2o IV 05/25/22 17:12 Infused ONCE ONE Infusion Lactated Ringer's 1,000 mls @ 80 mls/hr 05/25/22 16:15 05/25/22 16:08 Lr IVCONT 80 mls/hr .[id number] MARLIN Administration Sodium Chloride 3 ml 05/25/22 16:00 05/25/22 15:46 0.9 % Sodium Chloride Flush 3 Ml Syringe IVFLUSH Not Given QSHIFT MARLIN Discontinued Medications Generic Name Dose Route Start Last Admin Trade Name Freq PRN Reason Stop Dose Admin Magnesium Sulfate 2 gm in 50 mls @ 25 mls/hr 05/25/22 12:15 05/25/22 13:11 Magnesium Sulfate/H2o IV 05/25/22 14:14 Infused ONCE ONE Infusion Potassium Chloride 10 meq in 100 mls @ 100 mls/hr 05/25/22 12:44 05/25/22 14:13 Potassium Chloride/H20 IV 05/25/22 13:43 Infused ONCE ONE Infusion Potassium Chloride 60 meq 05/25/22 12:44 05/25/22 13:05 Potassium Chloride Er 20 Meq Tab.Er.Prt PO 05/25/22 12:45 60 meq ONCE ONE Administration <Felicia Huynh CNP - Last Filed: 05/25/22 11:24> Medications Administered Generic Name Dose Route Start Last Admin Trade Name Freq PRN Reason Stop Dose Admin Enoxaparin Sodium 40 mg 05/25/22 15:30 05/25/22 16:08 Enoxaparin Sodium 40 Mg/0.4 Ml Syringe SUBCUT 40 mg Q24H MARLIN Administration Magnesium Sulfate 2 gm in 50 mls @ 25 mls/hr 05/25/22 15:13 05/25/22 16:08 Magnesium Sulfate/H2o IV 05/25/22 17:12 Infused ONCE ONE Infusion Lactated Ringer's 1,000 mls @ 80 mls/hr 05/25/22 16:15 05/25/22 16:08 Lr IVCONT 80 mls/hr .[id number] MARLIN Administration Sodium Chloride 3 ml 05/25/22 16:00 05/25/22 15:46 0.9 % Sodium Chloride Flush 3 Ml Syringe IVFLUSH Not Given QSHIFT MARLIN Discontinued Medications Generic Name Dose Route Start Last Admin Trade Name Freq PRN Reason Stop Dose Admin Magnesium Sulfate 2 gm in 50 mls @ 25 mls/hr 05/25/22 12:15 05/25/22 13:11 Magnesium Sulfate/H2o IV 05/25/22 14:14 Infused ONCE ONE Infusion Potassium Chloride 10 meq in 100 mls @ 100 mls/hr 05/25/22 12:44 05/25/22 14:13 Potassium Chloride/H20 IV 05/25/22 13:43 Infused ONCE ONE Infusion Potassium Chloride 60 meq 05/25/22 12:44 05/25/22 13:05 Potassium Chloride Er 20 Meq Tab.Er.Prt PO 05/25/22 12:45 60 meq ONCE ONE Administration <Pastora Noyola NP - Last Filed: 05/25/22 17:02> Medical Decision Making Medical Decision Making MDM Narrative: 57-year-old female here with complaints of generalized weakness, feeling lightheaded and having a headache. Patient seen here yesterday for new onset seizure, NSTEMI, hypokalemia, hypocalcemia and left against medical advice. Patient is now willing to stay in the hospital. Denies CP. Will need labs, EKG, UA, COVID screen. <Pastora Noyola NP - Last Filed: 05/25/22 17:02> Differential Diagnosis Differential Diagnoses: The differential diagnosis associated with the presentation includes <Pastora Noyola NP - Last Filed: 05/25/22 17:02> Electrolyte abnormality, ACS <Pastora Noyola NP - Last Filed: 05/25/22 17:02> Admission/Observation Consideration of admission/observation: Escalation of care including admission/observation considered <Pastora Guerra [facility] [place] [employer]ATIV[employer]ER - Last Filed: 05/25/22 17:02> Multiple electrolyte abnormalities requiring correction, cardiac monitoring <Pastora Noyola NP - Last Filed: 05/25/22 17:02> Consult Healthcare Provider Management of the patient was discussed with: Hospitalist <Pastora Noyola NP - Last Filed: 05/25/22 17:02> Aleta Niño-admission <Pastora Noyola NP - Last Filed: 05/25/22 17:02> Lab Data MDM Lab Attestation statement: I reviewed the patient's lab results. <Pastora Noyola NP - Last Filed: 05/25/22 17:02> Result Diagrams: 05/25/22 11:35 05/25/22 11:35 <Felicia Huynh CNP - Last Filed: 05/25/22 11:24> Labs: Lab Results 05/25/22 05/25/22 05/25/22 Range/Units 11:35 11:35 11:35 WBC 11.5 H (4.8-10.8) X10*3/uL RBC 4.22 (4.20-5.50) X10*6/uL Hgb 13.2 (12.0-16.0) g/dl Hct 38.9 (37.0-47.0) % MCV 92.2 (80.0-98.0) fL MCH 31.3 (27.0-33.0) pg MCHC 33.9 (31.0-35.0) g/dl RDW 14.2 (11.0-16.0) % Plt Count 279 (160-400) X10*3/uL MPV 11.5 (9.4-12.3) fL Immature Gran % (Auto) 0.5 H (0.0-0.4) % Neut % (Auto) 68.6 (45-73) % Lymph % (Auto) 19.6 L (20-40) % [place] % (Auto) 8.6 (2-11) % Eos % (Auto) 1.9 (0-4) % Baso % (Auto) 0.8 (0-2) % Lymph # (Auto) 2.3 (1.2-4.9) X10*3/uL [place] # (Auto) 1.0 (0.1-1.2) X10*3/uL Eos # (Auto) 0.2 (0.0-0.4) X10*3/uL Baso # (Auto) 0.1 (0.0-0.2) X10*3/uL Abs Immat Gran (auto) 0.06 H (0.00-0.03) X10*3/uL Absolute Neuts (auto) 7.9 (2.0-8.3) x10*3/uL Absolute Nucleated RBC 0.000 (0.0-0.012) X10*3/uL Nucleated RBC % (auto) 0.0 (0.0-0.2) /100WBC Sodium 143 (135-145) mmol/L Potassium 2.8 L D (3.3-5.1) mmol/L Chloride 108 (96-108) mmol/L Carbon Dioxide 17 L (22-29) mmol/L Anion Gap 21 H (12-20) BUN 6 L (9-16) mg/dL Creatinine 0.66 (0.5-1.4) mg/dL Estim Creat Clear Calc 76.3 Estimated GFR > 60 Random Glucose 99 (60-115) mg/dL Calcium 7.7 L (8.4-10.2) mg/dL Magnesium < 0.6 L* (1.6-2.6) mg/dL Total Bilirubin 0.6 (0.0-1.0) mg/dL AST 50 H (5-31) U/L ALT 29 (0-31) U/L Alkaline Phosphatase 118 H (39-117) U/L Troponin I High Sens 85.0 H* (<3.5-17.0) ng/L Total Protein 7.3 (6.5-8.0) g/dL Albumin 4.2 (3.5-5.0) g/dL COVID-19 (OSBALDO) (Negative) COVID-19 Clin Com 05/25/22 Range/Units 12:04 WBC (4.8-10.8) X10*3/uL RBC (4.20-5.50) X10*6/uL Hgb (12.0-16.0) g/dl Hct (37.0-47.0) % MCV (80.0-98.0) fL MCH (27.0-33.0) pg MCHC (31.0-35.0) g/dl RDW (11.0-16.0) % Plt Count (160-400) X10*3/uL MPV (9.4-12.3) fL Immature Gran % (Auto) (0.0-0.4) % Neut % (Auto) (45-73) % Lymph % (Auto) (20-40) % [place] % (Auto) (2-11) % Eos % (Auto) (0-4) % Baso % (Auto) (0-2) % Lymph # (Auto) (1.2-4.9) X10*3/uL [place] # (Auto) (0.1-1.2) X10*3/uL Eos # (Auto) (0.0-0.4) X10*3/uL Baso # (Auto) (0.0-0.2) X10*3/uL Abs Immat Gran (auto) (0.00-0.03) X10*3/uL Absolute Neuts (auto) (2.0-8.3) x10*3/uL Absolute Nucleated RBC (0.0-0.012) X10*3/uL Nucleated RBC % (auto) (0.0-0.2) /100WBC Sodium (135-145) mmol/L Potassium (3.3-5.1) mmol/L Chloride (96-108) mmol/L Carbon Dioxide (22-29) mmol/L Anion Gap (12-20) BUN (9-16) mg/dL Creatinine (0.5-1.4) mg/dL Estim Creat Clear Calc Estimated GFR Random Glucose (60-115) mg/dL Calcium (8.4-10.2) mg/dL Magnesium (1.6-2.6) mg/dL Total Bilirubin (0.0-1.0) mg/dL AST (5-31) U/L ALT (0-31) U/L Alkaline Phosphatase (39-117) U/L Troponin I High Sens (<3.5-17.0) ng/L Total Protein (6.5-8.0) g/dL Albumin (3.5-5.0) g/dL COVID-19 (OSBALDO) Negative (Negative) COVID-19 Clin Com See Note <Felicia Huynh, [employer] - Last Filed: 05/25/22 11:24> Lab Results 05/25/22 05/25/22 05/25/22 Range/Units 11:35 11:35 11:35 WBC 11.5 H (4.8-10.8) X10*3/uL RBC 4.22 (4.20-5.50) X10*6/uL Hgb 13.2 (12.0-16.0) g/dl Hct 38.9 (37.0-47.0) % MCV 92.2 (80.0-98.0) fL MCH 31.3 (27.0-33.0) pg MCHC 33.9 (31.0-35.0) g/dl RDW 14.2 (11.0-16.0) % Plt Count 279 (160-400) X10*3/uL MPV 11.5 (9.4-12.3) fL Immature Gran % (Auto) 0.5 H (0.0-0.4) % Neut % (Auto) 68.6 (45-73) % Lymph % (Auto) 19.6 L (20-40) % [place] % (Auto) 8.6 (2-11) % Eos % (Auto) 1.9 (0-4) % Baso % (Auto) 0.8 (0-2) % Lymph # (Auto) 2.3 (1.2-4.9) X10*3/uL [place] # (Auto) 1.0 (0.1-1.2) X10*3/uL Eos # (Auto) 0.2 (0.0-0.4) X10*3/uL Baso # (Auto) 0.1 (0.0-0.2) X10*3/uL Abs Immat Gran (auto) 0.06 H (0.00-0.03) X10*3/uL Absolute Neuts (auto) 7.9 (2.0-8.3) x10*3/uL Absolute Nucleated RBC 0.000 (0.0-0.012) X10*3/uL Nucleated RBC % (auto) 0.0 (0.0-0.2) /100WBC Sodium 143 (135-145) mmol/L Potassium 2.8 L D (3.3-5.1) mmol/L Chloride 108 (96-108) mmol/L Carbon Dioxide 17 L (22-29) mmol/L Anion Gap 21 H (12-20) BUN 6 L (9-16) mg/dL Creatinine 0.66 (0.5-1.4) mg/dL Estim Creat Clear Calc 76.3 Estimated GFR > 60 Random Glucose 99 (60-115) mg/dL Calcium 7.7 L (8.4-10.2) mg/dL Magnesium < 0.6 L* (1.6-2.6) mg/dL Total Bilirubin 0.6 (0.0-1.0) mg/dL AST 50 H (5-31) U/L ALT 29 (0-31) U/L Alkaline Phosphatase 118 H (39-117) U/L Troponin I High Sens 85.0 H* (<3.5-17.0) ng/L Total Protein 7.3 (6.5-8.0) g/dL Albumin 4.2 (3.5-5.0) g/dL COVID-19 (OSBALDO) (Negative) COVID-19 Clin Com 05/25/22 Range/Units 12:04 WBC (4.8-10.8) X10*3/uL RBC (4.20-5.50) X10*6/uL Hgb (12.0-16.0) g/dl Hct (37.0-47.0) % MCV (80.0-98.0) fL MCH (27.0-33.0) pg MCHC (31.0-35.0) g/dl RDW (11.0-16.0) % Plt Count (160-400) X10*3/uL MPV (9.4-12.3) fL Immature Gran % (Auto) (0.0-0.4) % Neut % (Auto) (45-73) % Lymph % (Auto) (20-40) % [place] % (Auto) (2-11) % Eos % (Auto) (0-4) % Baso % (Auto) (0-2) % Lymph # (Auto) (1.2-4.9) X10*3/uL [place] # (Auto) (0.1-1.2) X10*3/uL Eos # (Auto) (0.0-0.4) X10*3/uL Baso # (Auto) (0.0-0.2) X10*3/uL Abs Immat Gran (auto) (0.00-0.03) X10*3/uL Absolute Neuts (auto) (2.0-8.3) x10*3/uL Absolute Nucleated RBC (0.0-0.012) X10*3/uL Nucleated RBC % (auto) (0.0-0.2) /100WBC Sodium (135-145) mmol/L Potassium (3.3-5.1) mmol/L Chloride (96-108) mmol/L Carbon Dioxide (22-29) mmol/L Anion Gap (12-20) BUN (9-16) mg/dL Creatinine (0.5-1.4) mg/dL Estim Creat Clear Calc Estimated GFR Random Glucose (60-115) mg/dL Calcium (8.4-10.2) mg/dL Magnesium (1.6-2.6) mg/dL Total Bilirubin (0.0-1.0) mg/dL AST (5-31) U/L ALT (0-31) U/L Alkaline Phosphatase (39-117) U/L Troponin I High Sens (<3.5-17.0) ng/L Total Protein (6.5-8.0) g/dL Albumin (3.5-5.0) g/dL COVID-19 (OSBALDO) Negative (Negative) COVID-19 Clin Com See Note <Pastora Noyola NP - Last Filed: 05/25/22 17:02> Independent Interpretation I performed an independent interpretation of an: EKG <Pastora Noyola NP - Last Filed: 05/25/22 17:02> Interpretation: I independently reviewed the patient's EKG which shows normal sinus rhythm with a rate of 97, normal AL, normal QRS, normal QT <Pastora Noyola NP - Last Filed: 05/25/22 17:02> Discharge Plan Discharge Clinical Impression: Acute hypokalemia, Hypomagnesemia, Hypocalcemia <Felicia Huynh CNP - Last Filed: 05/25/22 11:24> Patient Disposition: Admitted As Inpatient <Felicia Huynh CNP - Last Filed: 05/25/22 11:24>
--- NOTE | 2022-05-25 11:20 | ECG_ITS ---
Test Reason : chest pain Blood Pressure : / mmHG Vent. Rate : 097 BPM Atrial Rate : 097 BPM P-R Int : 150 ms QRS Dur : 068 ms QT Int : 330 ms P-R-T Axes : 074 063 041 degrees QTc Int : 419 ms Artifact in tracing Normal sinus rhythm Normal ECG When compared with ECG of 24-MAY-2022 19:34, Criteria for Septal infarct are no longer Present Referred By: Felicia Huynh Electronically Signed By:CHARLEEN DIAZ
[2022-05-25 11:39] LABS: MANUAL DIFF FLAG NO
--- NOTE | 2022-05-25 11:39 | PC.NURSE ---
57 y/o F called back into ED for abnormal labs including low K and increasing troponin. pt is aox3, states that she was BIBA yesterday after her roommate found her on the ground and called 911, however pt left AMA in order to secure a competitive intelligence manager. pt in gown, on , EKG done, 18G IV in place, all labs drawn and sent.
[2022-05-25 11:44] LABS: Basophils Absolute Auto 0.1 X10*3/uL (0.0-0.2); Basophils Percent Auto 0.8 % (0-2); Eosinophils Absolute Auto 0.2 X10*3/uL (0.0-0.4); Eosinophils Percent Auto 1.9 % (0-4); Hematocrit 38.9 % (37.0-47.0); Hemoglobin 13.2 g/dl (12.0-16.0); Imm Gran Abs Auto 0.06 X10*3/uL (0.00-0.03); Imm Gran Pct Auto 0.5 % (0.0-0.4); Lymphocytes Absolute Auto 2.3 X10*3/uL (1.2-4.9); Lymphocytes Percent Auto 19.6 % (20-40); Mean Corpuscular HGB Conc 33.9 g/dl (31.0-35.0); Mean Corpuscular Hemoglobin 31.3 pg (27.0-33.0); Mean Corpuscular Volume 92.2 fL (80.0-98.0); Mean Platelet Volume 11.5 fL (9.4-12.3); Monocytes Percent Auto 8.6 % (2-11); Neutrophils Absolute Auto 7.9 x10*3/uL (2.0-8.3); Neutrophils Percent Auto 68.6 % (45-73); Platelet Count 279 X10*3/uL (160-400); Red Blood Count 4.22 X10*6/uL (4.20-5.50); Red Cell Distribution Width 14.2 % (11.0-16.0); White Blood Count 11.5 X10*3/uL (4.8-10.8)
[2022-05-25 12:13] LABS: Alanine Aminotransferase 29 U/L (0-31); Albumin Level 4.2 g/dL (3.5-5.0); Alkaline Phosphatase 118 U/L (39-117); Aspartate Amino Transferase 50 U/L (5-31); Bilirubin Total 0.6 mg/dL (0.0-1.0); Blood Urea Nitrogen 6 mg/dL (9-16); Calcium 7.7 mg/dL (8.4-10.2); Creatinine Clr Calc Pharmacy 76.3; Estimated Glomerular Filt Rate > 60; Glucose Random 99 mg/dL (60-115); Total Protein 7.3 g/dL (6.5-8.0)
[2022-05-25] MEDS: Magnesium Sulfate/H2O 2 GM/50 ML PIGGYBACK IV ×2 (12:18→15:27)
[2022-05-25 12:19] LABS: Magnesium < 0.6 mg/dL (1.6-2.6)
[2022-05-25 12:25] LABS: Anion Gap 21 (12-20); Carbon Dioxide 17 mmol/L (22-29); Chloride 108 mmol/L (96-108); Potassium 2.8 mmol/L (3.3-5.1); Sodium 143 mmol/L (135-145)
[2022-05-25 12:33] LABS: COVID-19 Test Negative (Negative); IDNOW Serial# 16C4AD1C
[2022-05-25 12:48] VITALS: BP 113/64; PULSE 97; RESP 14; O2SAT 97
[2022-05-25] MEDS: Potassium Chloride ER 20 MEQ TAB.ER.PRT 60 MEQ PO (13:05)
[2022-05-25] MEDS: Potassium Chloride/H20 10 MEQ/100 ML PIGGYBACK 100 MEQ IV (13:11)
--- NOTE | 2022-05-25 13:50 | PHA.MEDREC ---
Pharmacy Consult ? Medication Reconciliation Pharmacy has completed the medication reconciliation.
--- NOTE | 2022-05-25 13:52 | P.HPHOSP_ITS ---
History of Present Illness Date of Service: 05/25/22 Attending physician on admission: Edward Bang Chief Complaint: Lightheadedness, dizziness Pt is a 57-year-old female with a PMH significant for?COPD, anxiety, depression, chronic diarrhea, GERD gastroparesis, and bile acid malabsorption syndrome who returns to the ED for admission to the hospital. Pt initially presented to the ED yesterday for new-onset seizure. Pt states she was with her friend at home when she felt lightheaded/dizzy and then fell to the floor in full tonic-clonic seizure with urinary and fecal incontinence. Lasted approximately 10 minutes with EMS witnessing the last 2 minutes. Pt denies any previous seizure hx. Per EMS, pt was confused after seizure and initially combative. No biting of tongue. In ED workup showed elevated troponins, initial 22 and repeat 132, treated with aspirin. Pt not complaining of chest pain/pressure, EKG negative for ST elevations and depressions. Electrolytes showed calcium 7.5, potassium 2.3. Ammonia 65. Pt did not want to stay in the hospital because she did not have anyone to watch her dog, left AMA. Pt returns today for admission after finding care for her dog. Still feels slightly dizzy and lightheaded. No repeat seizures. Denies chest pain/pressure, palpitations. No SOB. Denies abdominal pain. Pt has chronic, intermittent diarrhea episodes that normally lasts 4-5 d ays in a row. Currently pt has had a week of diarrhea that ended yesterday. Pt has had some nausea but no vomiting. 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 Currently trying to quit smoking. In the ED labs were significant for minor leukocytosis of 0.5, potassium 2.8, calcium of 7.7, magnesium < 0.6, AST of 50, alk-phos of 118, and troponin of 85.0 (down from 132.9 yesterday). CXR yesterday showed no cardiopulmonary disease. CT?of head yesterday showed no acute intracranial abnormality. EKG demonstrated Pt was treated with magnesium 2 g IV, and potassium chloride. Pt will be admitted to the hospital for treatment and further evaluation of electrolyte abnormalities and new onset seizure. Review of Systems Review of Systems: Tonic-clonic seizure Lightheadedness, dizziness Diarrhea for past week Denies chest pain/pressure, palpitations No abdominal pain Denies SOB Yes all other systems are reviewed and are negative [facility] Medical History Anxiety Arthritis Asthma Back pain COPD (chronic obstructive pulmonary disease) Depression Epigastric hernia Fibromyalgia Gastroparesis GERD (gastroesophageal reflux disease) HLD (hyperlipidemia) Hypothyroid Smoker Family History Father Stroke Mother No problems noted. Family/Other Diabetes Coronary artery disease Brother No problems noted. Sister No problems noted. Surgical History History of cholecystectomy History of esophagogastroduodenoscopy (EGD) History of hernia repair Hx of colonoscopy Social History Housing: House Alcohol intake: unknown Patient Tobacco Use Status: Current everyday Tobacco user Tobacco use type: Cigarette Cigarette Packs Per Day: 0.5 Cigarettes Per Day: 10.0 Years Smoked: 20 Advance Directives: No Advance Directives Information Provided: Yes Current occupational status: disabled Meds Allergies Allergy/AdvReac Type Severity Reaction Status Date / Time amoxicillin Allergy Mild Constipatio Verified 05/19/21 14:57 n Active Medications: Current Medications Magnesium Sulfate (Magnesium Sulfate/H2o) 2 gm in 50 mls @ 25 mls/hr IV ONCE ONE Stop: 05/25/22 14:14 Last Infusion: 05/25/22 13:11 Dose: Infused Pharmacy Consult (Consult Rx Perform Med Rec) 1 each MISCELLANE ONCE PRN PRN Reason: Consult order Home Medications Medication Instructions Recorded Confirmed Last Taken Type benztropine 1 mg tablet 1 mg PO .daily at bedtime 12/29/19 05/25/22 Unknown History sertraline 100 mg tablet 100 mg PO DAILY 12/29/19 05/25/22 Unknown History cholecalciferol (vitamin D3) 50 50 mcg PO DAILY 04/12/20 05/25/22 Unknown History mcg (2,000 unit) capsule clonazepam 0.5 mg tablet 0.5 mg PO BID PRN Anxiety 04/12/20 05/25/22 05/07/20 09:45 History mirtazapine 30 mg tablet 30 mg PO BEDTIME 04/12/20 05/25/22 Unknown History risperidone 1 mg tablet 1 mg PO BEDTIME 04/12/20 05/25/22 Unknown History riboflavin (vitamin B2) 100 mg 200 mg PO BID 04/22/20 05/25/22 Unknown History tablet docusate sodium 100 mg capsule 100 mg PO DAILY 05/19/21 05/25/22 Unknown History (Colace) cyclobenzaprine 10 mg tablet 10 mg PO TID 05/25/22 05/25/22 Unknown History melatonin 3 mg tablet 1 tab PO BEDTIME PRN insomnia 05/25/22 05/25/22 Unknown History Physical Exam Vital Signs and Narrative: Vital Signs: Last Vital Signs Temp 97.0 F 05/25/22 11:14 Pulse 97 05/25/22 12:48 Resp 14 05/25/22 12:48 BP 113/64 05/25/22 12:48 Pulse Ox 97 05/25/22 12:48 O2 Del Method 05/25/22 12:48 BMI result Body Mass Index 27.3 Constitutional: Alert, in no acute distress. Mental Status: Oriented to person, place and time. Eyes: Pupils are equal, round, and reactive to light. Ear, Nose, and Throat: Oropharynx clear, mucous membranes moist. Ears and nose without deformities. Trachea midline. Respiratory: Diffuse expiratory rhonchi. Cardiovascular: S1, S2 regular. No murmurs, rubs, or gallops. Gastrointestinal: Abdomen soft, non-tender, non-distended. Normal bowel sounds. Neurologic: Cranial nerves II-XII are grossly intact bilaterally. No focal n eurological deficits. Moves all extremities spontaneously. Skin: No rashes or lesions noted. Extremities: No edema. Psychiatric: Normal mood and affect. Results Labs 05/25/22 11:35 05/25/22 11:35 Labs: Laboratory Results - last 24 hr 05/25/22 05/25/22 05/25/22 11:35 11:35 11:35 MCV 92.2 MCH 31.3 MCHC 33.9 RDW 14.2 Plt Count 279 MPV 11.5 Immature Gran % (Auto) 0.5 H Neut % (Auto) 68.6 Lymph % (Auto) 19.6 L Childress % (Auto) 8.6 Eos % (Auto) 1.9 Baso % (Auto) 0.8 Lymph # (Auto) 2.3 Childress # (Auto) 1.0 Eos # (Auto) 0.2 Baso # (Auto) 0.1 Abs Immat Gran (auto) 0.06 H Absolute Neuts (auto) 7.9 Absolute Nucleated RBC 0.000 Nucleated RBC % (auto) 0.0 Anion Gap 21 H Estim Creat Clear Calc 76.3 Estimated GFR > 60 Random Glucose 99 Calcium 7.7 L Magnesium < 0.6 L* Total Bilirubin 0.6 AST 50 H ALT 29 Alkaline Phosphatase 118 H Troponin I High Sens 85.0 H* Total Protein 7.3 Albumin 4.2 COVID-19 (OS[facility]DO) COVID-19 Clin Com 05/25/22 12:04 MCV MCH MCHC RDW Plt Count MPV Immature Gran % (Auto) Neut % (Auto) Lymph % (Auto) Childress % (Auto) Eos % (Auto) Baso % (Auto) Lymph # (Auto) Childress # (Auto) Eos # (Auto) Baso # (Auto) Abs Immat Gran (auto) Absolute Neuts (auto) Absolute Nucleated RBC Nucleated RBC % (auto) Anion Gap Estim Creat Clear Calc Estimated GFR Random Glucose Calcium Magnesium Total Bilirubin AST ALT Alkaline Phosphatase Troponin I High Sens Total Protein Albumin COVID-19 (OSBALDO) Negative COVID-19 Clin Com See Note Assessment and Plan (1) Acute hypokalemia: Status: Acute (2) Hypomagnesemia: Status: Acute (3) New onset seizure: Status: Inactive (4) COPD (chronic obstructive pulmonary disease): Qualifiers: COPD type: chronic bronchitis Chronic bronchitis type: simple Qualified Code(s): J41.0 - Simple chronic bronchitis Status: Inactive Plan Pt is a 57-year-old female with a PMH significant for?COPD, anxiety, depression, chronic diarrhea, GERD gastroparesis, and bile acid malabsorption syndrome who returns to the ED for admission to the hospital. Pt initially presented to the ED yesterday for new-onset seizure left AMA because she did not have anyone to w atch her dog. Pt will be admitted to the hospital on telemetry for treatment and further evaluation of new onset seizure and electrolyte abnormalities. New onset seizure Likely secondary to electrolyte abnormalities d/t GI losses, less likely to epilepsy CT negative for any acute intracranial abnormality Treat as below Neurology consult Admit to telemetry Hypokalemia Pt's potassium 2.3 yesterday, 2.8 today Given potassium chloride yesterday and today Repeat labs, follow CMP Hypomagnesemia Pt's Mag <0.6 Given Mag 2g IV x2 doses Follow Mag Elevated ammonia Patient's ammonia 65 yesterday Patient currently not encephalopathic Repeat ammonia, correct as necessary Elevated troponins Yesterday initial troponin 22.2, repeat 132.9; today 85.0 Pt not complaining of chest pain/pressure EKG negative for ST elevations or depressions Likely secondary to demand ischemia, less likely NSTEMI Echocardiogram Continue aspirin, statin If patient develops chest pain/pressure, palpitations repeat EKG and troponins, and get cardiology consult Bile acid malabsorption syndrome Continue cholestyramine If pt's electrolytes are not improved despite replenishment, consult GI Nicotine dependence Occasionally smokes cigarettes Does not want NRT GERD Continue omeprazole Gastroparesis Continue metoclopramide Depression/anxiety Continue home meds Full Code Attending:?Dr. Bang DVT Prophylaxis: Lovenox Pt will require a hospitalization of at least two nights for treatment of?new onset seizure and electrolyte abnormalities. Time Spent With Patient Time: Total time managing care of this patient today ____ minutes. Quality Stroke Does the patient have a stroke diagnosis?: No VTE Prior VTE?: No VTE Risk Level:: Medical - moderate - high VTE Device Contraindication: Treatment Not Indicated VTE Drug Contraindication: N/A - Med Ordered
[2022-05-25 15:44] VITALS: BP 119/66; PULSE 96; RESP 23; TEMP 36.7; O2SAT 97
[2022-05-25 16:01] LABS: Ammonia 49 umol/L (13-55)
[2022-05-25] MEDS: Lactated Ringers 1,000 ML 80 ML IVCONT (16:08)
[2022-05-25] MEDS: Enoxaparin Sodium 40 MG/0.4 ML SYRINGE SUBCUT (16:08)
--- NOTE | 2022-05-25 17:09 | PM.NEUROCN ---
History of Present Illness Data of Consult Service Date: 05/25/22 Primary Care Provider: Jp Monsivais PA-C HPI Reason for consult: New onset gen. T/C Sz This is a 57-year-old female with a h/o?COPD, anxiety, depression, chronic diarrhea, GERD gastroparesis, and bile acid malabsorption syndrome who returns to the ED for admission to the hospital. Pt initially presented to the ED yesterday for new-onset seizure. Pt states she was with her friend at home when she felt lightheaded/dizzy and then fell to the floor in full tonic-clonic seizure with urinary and fecal incontinence. Lasted approximately 10 minutes with EMS witnessing the last 2 minutes. Pt denies any previous seizure hx. Per EMS, pt was confused after seizure and initially combative. No biting of tongue. In ED workup showed calcium 7.5, potassium 2.3. and magnesium < 05, Ammonia 65. Pt did not want to stay in the hospital because she did not have anyone to watch her dog, left AMA. Pt returns today for admission after finding care for her dog. Still feels slightly dizzy and lightheaded. No repeat seizures. Denies chest pain/pressure, palpitations. No SOB. Denies abdominal pain. Pt has chronic, intermittent diarrhea episodes that normally lasts 4-5 days in a row. Currently pt has had a week of diarrhea that ended yesterday. Pt has had some nausea but no vomiting. 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 Currently trying to quit smoking. CT brain normal. Review of Systems Review of Systems: Tonic-clonic seizure Lightheadedness, dizziness Diarrhea for past week Denies chest pain/pressure, palpitations No abdominal pain Denies SOB Yes all other systems are reviewed and are negative Constitutional: Constitutional: Reports no additional constitutional complaints, Denies body ache(s), Denies chills, Denies fever(s), Reports headache(s) and Reports weakness Eyes: Eyes: Reports no additional eye complaints and Denies change in vision ENT: Reports system reviewed and no additional complaints, except as documented, Reports dizziness, Reports headache(s), Denies nasal congestion, Denies nasal discharge and Denies neck pain Cardiovascular: Cardiovascular: Reports no additional cardiovascular complaints, Denies chest pain, Denies leg edema and Denies dyspnea Respiratory: Respiratory: Reports no additional respiratory complaints, Denies cough and Denies dyspnea Gastrointestinal: Gastrointestinal: Reports no additional gastrointestinal complaints, Denies abdominal pain, Denies diarrhea, Denies nausea and Denies vomiting Musculoskeletal: Musculoskeletal: Reports no additional musculoskeletal complaints, Denies back pain, Denies arthralgias, Denies joint swelling, Denies neck pain, Denies numbness and Denies tingling Integumentary/Breasts: Skin/Breast: Reports system reviewed and no additional complaints, except as docu and Denies rash Neurologic: Reports system reviewed and no additional complaints, except as documented, Denies Abnormal speech present, Reports dizziness, Reports headache(s), Denies numbness, Denies tingling and Reports weakness PMFSH Past Medical History Medical History Anxiety Arthritis Asthma Back pain COPD (chronic obstructive pulmonary disease) Depression Epigastric hernia Fibromyalgia Gastroparesis GERD (gastroesophageal reflux disease) HLD (hyperlipidemia) Hypothyroid Smoker Family History Family History Father Stroke Mother No problems noted. Family/Other Diabetes Coronary artery disease Brother No problems noted. Sister No problems noted. Surgical History Surgical History History of cholecystectomy History of esophagogastroduodenoscopy (EGD) History of hernia repair Hx of colonoscopy Social History Social History Housing: House Alcohol intake: unknown Patient Tobacco Use Status: Current everyday Tobacco user Tobacco use type: Cigarette Cigarette Packs Per Day: 0.5 Cigarettes Per Day: 10.0 Years Smoked: 20 Advance Directives: No Advance Directives Information Provided: Yes Current occupational status: disabled Meds Allergies Allergy/AdvReac Type Severity Reaction Status Date / Time amoxicillin Allergy Mild Constipatio Verified 05/19/21 14:57 n Active Medications: Current Medications Acetaminophen (Acetaminophen 325 Mg Tablet) 650 mg PO Q6H PRN PRN Reason: Pain, Mild (Pain Scale 1-3) Albuterol Sulfate (Albuterol Sulfate (0.083%) 2.5 Mg/3 Ml Vial.Neb) 2.5 mg INHALE Q6H PRN PRN Reason: Shortness of Breath/Wheezing Albuterol Sulfate (Albuterol Sulfate 90 Mcg 8 Gm Inhaler) 2 puff INHALE Q4H PRN PRN Reason: Wheezing Lipase/Protease/Amylase (Lipase/Prot/Amylase 24/76/120k 1 Cap Capsule.) 2 cap PO TID [facility] Aspirin (Aspirin Enteric Coated 81 Mg Tablet.) 81 mg PO DAILY [facility] Atorvastatin Calcium (Atorvastatin Calcium 80 Mg Tablet) 80 mg PO DAILY [facility] Benztropine Mesylate (Benztropine Mesylate 1 Mg Tablet) 1 mg PO BEDTIME [facility] Clonazepam (Clonazepam 0.5 Mg Tablet) 0.5 mg PO BID PRN PRN Reason: Anxiety Cyclobenzaprine HCl (Cyclobenzaprine Hcl 10 Mg Tablet) 10 mg PO TID [facility] Docusate Sodium (Docusate Sodium 100 Mg Capsule) 100 mg PO DAILY PRN PRN Reason: Constipation Docusate Sodium (Docusate Sodium 100 Mg Capsule) 100 mg PO DAILY [facility] Enoxaparin Sodium (Enoxaparin Sodium 40 Mg/0.4 Ml Syringe) 40 mg SUBCUT Q24H [facility] Last Admin: 05/25/22 16:08 Dose: 40 mg Magnesium Sulfate (Magnesium Sulfate/H2o) 2 gm in 50 mls @ 25 mls/hr IV ONCE ONE Stop: 05/25/22 17:12 Last Infusion: 05/25/22 16:08 Dose: Infused Lactated Ringer's (Lr) 1,000 mls @ 80 mls/hr IVCONT .[id number] [facility] Last Admin: 05/25/22 16:08 Dose: 80 mls/hr Levothyroxine Sodium (Levothyroxine Sodium 75 Mcg Tablet) 75 mcg PO DAILY@0600 [facility] Melatonin (Melatonin 3 Mg Tablet) 3 mg PO BEDTIME PRN PRN Reason: insomnia Metoclopramide HCl (Metoclopramide Hcl 5 Mg Tablet) 5 mg PO TID [facility] Metoprolol Succinate (Metoprolol Succinate Er 12.5 Mg Halftab.Er.24h) 12.5 mg PO DAILY [facility]; Protocol Mirtazapine (Mirtazapine 30 Mg Tablet) 30 mg PO BEDTIME [facility] Nitroglycerin (Nitroglycerin 0.4 Mg Tab.Subl) 0.4 mg SUBLINGUAL Q5M PRN PRN Reason: chest pain Non-Formulary Medication (Calcium Acetate) 667 mg PO TID [facility] Non-Formulary Medication (Riboflavin (Vitamin B2)) 200 mg PO BID [facility] Omeprazole (Omeprazole 40 Mg Capsule.Dr) 40 mg PO DAILY [facility] Ondansetron HCl (Ondansetron Hcl 4 Mg/2 Ml Vial) 4 mg IVPUSH Q8H PRN PRN Reason: Nausea and Vomiting Pharmacy Consult (Consult Rx Perform Med Rec) 1 each MISCELLANE ONCE PRN PRN Reason: Consult order Potassium Chloride (Potassium Chloride Er 10 Meq Capsule.Er) 10 meq PO BID [facility] Risperidone (Risperidone 1 Mg Tablet) 1 mg PO BEDTIME [facility] Sertraline HCl (Sertraline Hcl 100 Mg Tablet) 100 mg PO DAILY [facility] Sodium Chloride (0.9 % Sodium Chloride Flush 3 Ml Syringe) 3 ml IVFLUSH QSHIFT [facility] Last Admin: 05/25/22 15:46 Dose: Not Given Vitamin D (Cholecalciferol (Vitamin D3) 25 Mcg Tablet) 50 mcg PO DAILY [facility] Home Medications Medication Instructions Recorded Confirmed Last Taken Type benztropine 1 mg tablet 1 mg PO .daily at bedtime 12/29/19 05/25/22 Unknown History sertraline 100 mg tablet 100 mg PO DAILY 12/29/19 05/25/22 Unknown History cholecalciferol (vitamin D3) 50 50 mcg PO DAILY 04/12/20 05/25/22 Unknown History mcg (2,000 unit) capsule clonazepam 0.5 mg tablet 0.5 mg PO BID PRN Anxiety 04/12/20 05/25/22 05/07/20 09:45 History mirtazapine 30 mg tablet 30 mg PO BEDTIME 04/12/20 05/25/22 Unknown History risperidone 1 mg tablet 1 mg PO BEDTIME 04/12/20 05/25/22 Unknown History riboflavin (vitamin B2) 100 mg 200 mg PO BID 04/22/20 05/25/22 Unknown History tablet docusate sodium 100 mg capsule 100 mg PO DAILY 05/19/21 05/25/22 Unknown History (Colace) cyclobenzaprine 10 mg tablet 10 mg PO TID 05/25/22 05/25/22 Unknown History melatonin 3 mg tablet 1 tab PO BEDTIME PRN insomnia 05/25/22 05/25/22 Unknown History Physical Exam Vital Signs: Vital Signs: Last Vital Signs Temp 98.1 F 05/25/22 15:44 Pulse 96 05/25/22 15:44 Resp 23 H 05/25/22 15:44 BP 119/66 05/25/22 15:44 Pulse Ox 97 05/25/22 15:44 O2 Del Method 05/25/22 15:44 BMI result Body Mass Index 27.3 Const: General: cooperative, healthy appearing, comfortable and no acute distress Orientation/consciousness: patient oriented x3 Limitations: no limitations HEENT: Head: Yes normal to inspection Ears: hearing grossly normal bilaterally General nose exam: Normal external nose present Face and sinus: Yes normal facial exam Mouth: Normal oral and palatal mucosa present Throat: Yes posterior oropharynx normal Eyes: General: appearance normal, both eyes and all related structures Pupils: Equal, round and reactive pupils present Neck: Neck: Yes normal visual inspection Chest: Chest palpation & inspection: normal inspection of the chest Resp: Effort & Inspection: normal respiratory effort Auscultation: clear to auscultation bilaterally Cardio: Rate: regular rate Rhythm: regular rhythm Peripheral pulses: Peripheral pulses 2+ throughout GI: Inspection: Yes normal to inspection Palpation (GI): Soft to palpation and nontender Auscultation: normal bowel sounds Back/Spine/Pelvis: Thoracic/Lumbar Spine: thoracic and lumbar spine normal to inspection Skin: General skin exam: no rashes or lesions noted Neuro: Other: Normal non-focal neurological examination General: patient oriented x3, no focal motor deficits and normal sensation to monofilament Cranial nerves: Yes Equal, round and reactive pupils present Cognition (Neuro): normal cognition Speech: No Abnormal speech present Gait exam (Neuro): Normal gait present Motor exam (neuro): 5/5 motor strength present throughout Extrem: General: Yes normal to inspection, Yes no pedal edema and Yes no calf tenderness Results Labs 05/25/22 11:35 05/25/22 11:35 Labs: Short CBC 05/25/22 Range/Units 11:35 WBC 11.5 H (4.8-10.8) X10*3/uL Hgb 13.2 (12.0-16.0) g/dl Hct 38.9 (37.0-47.0) % Plt Count 279 (160-400) X10*3/uL BMP 05/25/22 11:35 Sodium 143 Potassium 2.8 L D Chloride 108 Carbon Dioxide 17 L BUN 6 L Creatinine 0.66 Calcium 7.7 L Liver Function 05/25/22 Range/Units 11:35 Total Bilirubin 0.6 (0.0-1.0) mg/dL AST 50 H (5-31) U/L ALT 29 (0-31) U/L Alkaline Phosphatase 118 H (39-117) U/L Albumin 4.2 (3.5-5.0) g/dL Assessment and Plan (1) Acute hypokalemia: Status: Acute (2) Hypomagnesemia: Status: Acute (3) New onset seizure: Status: Inactive New-onset of seizure probably related to hypomagnesemia and hypocalcemia. Recommendation EEG. Correction of the hypomagnesemia and hypocalciumia. (4) COPD (chronic obstructive pulmonary disease): Qualifiers: COPD type: chronic bronchitis Chronic bronchitis type: simple Qualified Code(s): J41.0 - Simple chronic bronchitis Status: Inactive Plan Pt is a 57-year-old female with a PMH significant for?COPD, anxiety, depression, chronic diarrhea, GERD gastroparesis, and bile acid malabsorption syndrome who returns to the ED for admission to the hospital. Pt initially presented to the ED yesterday for new-onset seizure left AMA because she did not have anyone to watch her dog. Pt will be admitted to the hospital on telemetry for treatment and further evaluation of new onset seizure and electrolyte abnormalities. New onset seizure Likely secondary to electrolyte abnormalities d/t GI losses, less likely to epilepsy CT negative for any acute intracranial abnormality Treat as below Neurology consult Admit to telemetry Hypokalemia Pt's potassium 2.3 yesterday, 2.8 today Given potassium chloride yesterday and today Repeat labs, follow CMP Hypomagnesemia Pt's Mag <0.6 Given Mag 2g IV x2 doses Follow Mag Elevated ammonia Patient's ammonia 65 yesterday Patient currently not encephalopathic Repeat ammonia, correct as necessary Elevated troponins Yesterday initial troponin 22.2, repeat 132.9; today 85.0 Pt not complaining of chest pain/pressure EKG negative for ST elevations or depressions Likely secondary to demand ischemia, less likely NSTEMI Echocardiogram Continue aspirin, statin If patient develops chest pain/pressure, palpitations repeat EKG and troponins, and get cardiology consult Bile acid malabsorption syndrome Continue cholestyramine If pt's electrolytes are not improved despite replenishment, consult GI Nicotine dependence Occasionally smokes cigarettes Does not want NRT GERD Continue omeprazole Gastroparesis Continue metoclopramide Depression/anxiety Continue home meds Full Code Attending:?Dr. Bang DVT Prophylaxis: Lovenox Pt will require a hospitalization of at least two nights for treatment of?new onset seizure and electrolyte abnormalities. Time Spent With Patient Time: Total time managing care of this patient today ____ minutes. Procedures Date of Service Date of Service: 05/25/22
[2022-05-25 17:28] LABS: Alanine Aminotransferase 26 U/L (0-31); Albumin Level 3.8 g/dL (3.5-5.0); Alkaline Phosphatase 118 U/L (39-117); Anion Gap 21 (12-20); Aspartate Amino Transferase 46 U/L (5-31); Bilirubin Total 0.5 mg/dL (0.0-1.0); Blood Urea Nitrogen 5 mg/dL (9-16); Calcium 7.7 mg/dL (8.4-10.2); Carbon Dioxide 18 mmol/L (22-29); Chloride 109 mmol/L (96-108); Creatinine Clr Calc Pharmacy 81.3; Estimated Glomerular Filt Rate > 60; Glucose Random 80 mg/dL (60-115); Potassium 3.1 mmol/L (3.3-5.1); Sodium 145 mmol/L (135-145); Total Protein 6.6 g/dL (6.5-8.0)
[2022-05-25 17:52] LABS: Magnesium 1.6 mg/dL (1.6-2.6); Troponin-I High Sensitivity 74.7 ng/L (<3.5-17.0)
[2022-05-25] MEDS: Potassium Chloride Packet 20 MEQ PACKET 40 MEQ PO (18:15)
[2022-05-25] MEDS: Calcium Gluconate/NaCl,Iso-Osm 1 GM/50 ML PLAST..BAG IV (18:15)
[2022-05-25 18:17] VITALS: BP 110/78; PULSE 93; RESP 15; TEMP 36.4; O2SAT 98
[2022-05-25 18:35] VITALS: BMI 29.3
[2022-05-25] MEDS: Mirtazapine 30 MG TABLET PO (19:50)
[2022-05-25] MEDS: Benztropine Mesylate 1 MG TABLET PO (19:51)
[2022-05-25] MEDS: Lipase/Prot/Amylase 24/76/120K 1 CAP CAPSULE.DR 2 CAP PO (19:51)
[2022-05-25] MEDS: risperiDONE 1 MG TABLET PO (19:52)
[2022-05-25] MEDS: Cyclobenzaprine HCl 10 MG TABLET PO (19:52)
[2022-05-25] MEDS: Metoclopramide HCl 5 MG TABLET PO (19:52)
[2022-05-25 23:09] VITALS: BP 114/64; PULSE 82; RESP 16; TEMP 36.3; O2SAT 96
--- NOTE | 2022-05-26 | EEG_ITS ---
FINDINGS: The waking background activity consists of moderate to high voltage 9 Hz alpha frequency intermixed anteriorly with low voltage fast frequencies and excessively prominent beta in the anterior quadrants which may be medications effect. Photic stimulation and hyperventilation are without activation. No focal, lateralizing, or paroxysmal discharges seen. IMPRESSION: This waking EEG is within normal limits. Excessive beta is noted which is probably a medication effect. MD CESAR Squires/MARCIN / [id number]
[2022-05-26 00:07] LABS: Appearance Urine Clear; Color Urine Dark Yellow; Glucose Urine UA Negative (Negative); Leukocyte Esterase Urine Moderate (2+) (Negative); Nitrite Urine Negative (Negative); PH 6.5 (5.0-9.0); Specific Gravity - Urine 1.015 (1.005-1.025); UMIC TRIGGER UACC YES; Urine Blood Negative (Negative); Urine Ketones 15 mg/dL (Negative); Urine Protein Trace mg/dL (Neg-Trace)
[2022-05-26 00:11] LABS: Bacteria Urine Trace (None Seen); Hyaline Casts Urine 0-2 /LPF (0-2); RBC Urine 0-2 /HPF (0-2); Squamous Epithelial Cell Urine 0-2 /HPF (0-2); UACC Culture Trigger YES; WBC Urine 21-50 /HPF (0-5)
[2022-05-26 04:00] VITALS: BP 145/71; PULSE 89; RESP 17; TEMP 36.4; O2SAT 91
[2022-05-26] MEDS: Lactated Ringers 1,000 ML 80 ML IVCONT ×2 (04:24→16:41)
[2022-05-26] MEDS: Levothyroxine Sodium 75 MCG TABLET PO (04:25)
[2022-05-26 07:43] VITALS: BP 152/84; PULSE 83; RESP 20; TEMP 36.3; O2SAT 93
[2022-05-26 07:46] LABS: Alanine Aminotransferase 23 U/L (0-31); Albumin Level 3.3 g/dL (3.5-5.0); Alkaline Phosphatase 109 U/L (39-117); Anion Gap 13 (12-20); Aspartate Amino Transferase 37 U/L (5-31); Bilirubin Direct < 0.2 mg/dL (0.0-0.5); Bilirubin Total 0.5 mg/dL (0.0-1.0); Blood Urea Nitrogen 10 mg/dL (9-16); Calcium 7.8 mg/dL (8.4-10.2); Carbon Dioxide 19 mmol/L (22-29); Chloride 113 mmol/L (96-108); Creatinine Clr Calc Pharmacy 74.5; Estimated Glomerular Filt Rate > 60; Glucose Random 123 mg/dL (60-115); Magnesium 1.2 mg/dL (1.6-2.6); Sodium 141 mmol/L (135-145); Total Protein 5.7 g/dL (6.5-8.0)
[2022-05-26] MEDS: Cyclobenzaprine HCl 10 MG TABLET PO ×3 (08:22→19:57)
[2022-05-26] MEDS: Cholecalciferol (Vitamin D3) 25 MCG TABLET 50 MCG PO (08:22)
[2022-05-26] MEDS: Lipase/Prot/Amylase 24/76/120K 1 CAP CAPSULE.DR 2 CAP PO ×3 (08:22→19:57)
[2022-05-26] MEDS: Metoprolol Succinate ER 12.5 MG HALFTAB.ER.24H PO (08:23)
[2022-05-26] MEDS: Metoclopramide HCl 5 MG TABLET PO ×3 (08:23→19:57)
[2022-05-26] MEDS: Omeprazole 40 MG CAPSULE.DR PO (08:23)
[2022-05-26] MEDS: Magnesium Oxide 400 MG TABLET 800 MG PO ×2 (08:23→16:39)
[2022-05-26] MEDS: Sertraline HCL 100 MG TABLET PO (08:23)
[2022-05-26] MEDS: Atorvastatin Calcium 80 MG TABLET PO (08:23)
[2022-05-26] MEDS: Docusate Sodium 100 MG CAPSULE PO (08:24)
[2022-05-26] MEDS: Aspirin Enteric Coated 81 MG TABLET.DR PO (08:24)
[2022-05-26] MEDS: Magnesium Sulfate/H2O 2 GM/50 ML PIGGYBACK IV (09:24)
[2022-05-26] MEDS: Calcium Gluconate/NaCl,Iso-Osm 1 GM/50 ML PLAST..BAG IV (10:21)
[2022-05-26 10:28] LABS: Vitamin D 25-OH Total 9.5 ng/mL (>30)
[2022-05-26] MEDS: Albuterol Sulfate 90 MCG 8 GM INHALER 2 PUFF INHALE (10:46)
--- NOTE | 2022-05-26 11:00 | MHC.CM.PN ---
IMM DELIVERED PT LIVES IN A [facility] WITH A FRIEND. INDEPENDENT AT BASELINE, USES CANE OR WALKER OCCASIONALLY. HAS NEBULIZER THROUGH [facility]. PT STATES SHE IS ACTIVE WITH [facility] . RETURN REFERRAL SENT. NO HCP BUT WILL COMPLETE ONE WHILE HERE. + COVID VAX X3 PCP ZAYRA KENNEDY AT [facility]. DP: HOME WITH RESUMPTION OF [facility]. FRIEND/ROOMATE WILL TRANSPORT HOME. CM WILL CONT TO FOLLOW.
[2022-05-26 11:17] VITALS: BP 109/60; PULSE 80; RESP 20; TEMP 36.6; O2SAT 95
--- NOTE | 2022-05-26 14:23 | HO.PM.IMPN ---
Subjective Subjective Date of Service: 05/27/22 Interval History: Seizure, multiple electrolytic abnormalities, Review of Systems Patient had 1 episode of diarrhea Denies any nausea vomiting or fever or chills or cough or phlegm . Physical Exam Vital Signs: Vital Signs: Last Vital Signs Temp 97.8 F 05/26/22 11:17 Pulse 80 05/26/22 11:17 Resp 20 05/26/22 11:17 BP 109/60 05/26/22 11:17 Pulse Ox 95 05/26/22 11:17 O2 Del Method 05/26/22 11:17 BMI result Body Mass Index 29.3 Appearance: Alert.? Oriented X3.? not in distress. cvs: [id number], [id number] , no murmur res: clear to auscultation ,no rhonchii or wheezing abd: no rebound or guarding ,nt, bs present. ext pulses present , no cyanosis . neuro: axo3 , nonfocal. Objective Data Active Medications Acetaminophen (Acetaminophen 325 Mg Tablet) 650 mg PO Q6H PRN PRN Reason: Pain, Mild (Pain Scale 1-3) Albuterol Sulfate (Albuterol Sulfate (0.083%) 2.5 Mg/3 Ml Vial.Neb) 2.5 mg INHALE Q6H PRN PRN Reason: Shortness of Breath/Wheezing Albuterol Sulfate (Albuterol Sulfate 90 Mcg 8 Gm Inhaler) 2 puff INHALE Q4H PRN PRN Reason: Wheezing Last Admin: 05/26/22 10:46 Dose: 2 puff Documented By: FABBY Lipase/Protease/Amylase (Lipase/Prot/Amylase 24/76/120k 1 Cap Capsule.) 2 cap PO TID [facility] Last Admin: 05/26/22 08:22 Dose: 2 cap Documented By: EVERARDO Aspirin (Aspirin Enteric Coated 81 Mg Tablet.) 81 mg PO DAILY [facility] Last Admin: 05/26/22 08:24 Dose: 81 mg Documented By: EVERARDO Atorvastatin Calcium (Atorvastatin Calcium 80 Mg Tablet) 80 mg PO DAILY [facility] Last Admin: 05/26/22 08:23 Dose: 80 mg Documented By: EVERARDO Benztropine Mesylate (Benztropine Mesylate 1 Mg Tablet) 1 mg PO BEDTIME [facility] Last Admin: 05/25/22 19:51 Dose: 1 mg Documented By: MONICA Clonazepam (Clonazepam 0.5 Mg Tablet) 0.5 mg PO BID PRN PRN Reason: Anxiety Cyclobenzaprine HCl (Cyclobenzaprine Hcl 10 Mg Tablet) 10 mg PO TID [facility] Last Admin: 05/26/22 08:22 Dose: 10 mg Documented By: EVERARDO Docusate Sodium (Docusate Sodium 100 Mg Capsule) 100 mg PO DAILY PRN PRN Reason: Constipation Docusate Sodium (Docusate Sodium 100 Mg Capsule) 100 mg PO DAILY [facility] Last Admin: 05/26/22 08:24 Dose: 100 mg Documented By: EVERARDO Enoxaparin Sodium (Enoxaparin Sodium 40 Mg/0.4 Ml Syringe) 40 mg SUBCUT Q24H [facility] Last Admin: 05/25/22 16:08 Dose: 40 mg Documented By: ISHAAN-GIANNI Lactated Ringer's (Lr) 1,000 mls @ 80 mls/hr IVCONT .[id number] [facility] Last Admin: 05/26/22 04:24 Dose: 80 mls/hr Documented By: YVROSE Levothyroxine Sodium (Levothyroxine Sodium 75 Mcg Tablet) 75 mcg PO DAILY@0600 [facility] Last Admin: 05/26/22 04:25 Dose: 75 mcg Documented By: YVROSE Magnesium Oxide (Magnesium Oxide 400 Mg Tablet) 800 mg PO BIDPC [facility] Last Admin: 05/26/22 08:23 Dose: 800 mg Documented By: EVERARDO Melatonin (Melatonin 3 Mg Tablet) 3 mg PO BEDTIME PRN PRN Reason: insomnia Metoclopramide HCl (Metoclopramide Hcl 5 Mg Tablet) 5 mg PO TID [facility] Last Admin: 05/26/22 08:23 Dose: 5 mg Documented By: EVERARDO Metoprolol Succinate (Metoprolol Succinate Er 12.5 Mg Halftab.Er.24h) 12.5 mg PO DAILY [facility]; Protocol Last Admin: 05/26/22 08:23 Dose: 12.5 mg Documented By: EVERARDO Mirtazapine (Mirtazapine 30 Mg Tablet) 30 mg PO BEDTIME [facility] Last Admin: 05/25/22 19:50 Dose: 30 mg Documented By: MONICA Nitroglycerin (Nitroglycerin 0.4 Mg Tab.Subl) 0.4 mg SUBLINGUAL Q5M PRN PRN Reason: chest pain Non-Formulary Medication (Calcium Acetate) 667 mg PO TID [facility] Non-Formulary Medication (Riboflavin (Vitamin B2)) 200 mg PO BID [facility] Omeprazole (Omeprazole 40 Mg Capsule.Dr) 40 mg PO DAILY [facility] Last Admin: 05/26/22 08:23 Dose: 40 mg Documented By: EVERARDO Ondansetron HCl (Ondansetron Hcl 4 Mg/2 Ml Vial) 4 mg IVPUSH Q8H PRN PRN Reason: Nausea and Vomiting Pharmacy Consult (Consult Rx Perform Med Rec) 1 each MISCELLANE ONCE PRN PRN Reason: Consult order Potassium Chloride (Potassium Chloride Er 10 Meq Capsule.Er) 10 meq PO BID [facility] Last Admin: 05/26/22 08:23 Dose: 10 meq Documented By: EVERARDO Risperidone (Risperidone 1 Mg Tablet) 1 mg PO BEDTIME [facility] Last Admin: 05/25/22 19:52 Dose: 1 mg Documented By: MONICA Sertraline HCl (Sertraline Hcl 100 Mg Tablet) 100 mg PO DAILY [facility] Last Admin: 05/26/22 08:23 Dose: 100 mg Documented By: EVERARDO Sodium Chloride (0.9 % Sodium Chloride Flush 3 Ml Syringe) 3 ml IVFLUSH QSHIFT [facility] Last Admin: 05/26/22 08:29 Dose: Not Given Documented By: EVERARDO Non-Admin Reason: IV Running Vitamin D (Cholecalciferol (Vitamin D3) 25 Mcg Tablet) 100 mcg PO DAILY [facility] Labs 05/25/22 11:35 05/26/22 05:30 Labs: Laboratory Results - last 24 hr 05/25/22 05/25/22 05/25/22 15:41 15:41 15:41 Anion Gap 21 H Estim Creat Clear Calc 81.3 Estimated GFR > 60 Random Glucose 80 Calcium 7.7 L Magnesium 1.6 Total Bilirubin 0.5 Direct Bilirubin AST 46 H ALT 26 Alkaline Phosphatase 118 H Ammonia 49 Total Creatine Kinase 841 H Troponin I High Sens 74.7 H* Total Protein 6.6 Albumin 3.8 25-OH Vitamin D Total Urine Color Urine Appearance Urine pH Ur Specific [place] Urine Protein Urine Glucose (UA) Urine Ketones Urine Blood Urine Nitrite Ur Leukocyte Esterase Urine RBC Urine WBC Ur Squamous Epith Cells Urine Bacteria Hyaline Casts 05/25/22 05/26/22 23:52 05:30 Anion Gap 13 Estim Creat Clear Calc 74.5 Estimated GFR > 60 Random Glucose 123 H Calcium 7.8 L Magnesium 1.2 L* Total Bilirubin 0.5 Direct Bilirubin < 0.2 AST 37 H ALT 23 Alkaline Phosphatase 109 Ammonia Total Creatine Kinase Troponin I High Sens Total Protein 5.7 L Albumin 3.3 L 25-OH Vitamin D Total 9.5 Urine Color Dark Yellow Urine Appearance Clear Urine pH 6.5 Ur Specific [place] 1.015 Urine Protein Trace Urine Glucose (UA) Negative Urine Ketones 15 Urine Blood Negative Urine Nitrite Negative Ur Leukocyte Esterase Moderate (2+) H Urine RBC 0-2 Urine WBC 21-50 H Ur Squamous Epith Cells 0-2 Urine Bacteria Trace Hyaline Casts 0-2 Assessment and Plan (1) Hypocalcemia: Status: Acute (2) Acute hypokalemia: Status: Acute (3) Hypomagnesemia: Status: Acute (4) Vitamin D deficiency: Status: Acute Plan 57-year-old female with a PMH significant for?COPD, anxiety, depression, chronic diarrhea, GERD gastroparesis, and bile acid malabsorption syndrome who returns to the ED for admission to the hospital. Pt initially presented to the ED yesterday for new-onset seizure left AMA because she did not have anyone to watch her dog. Pt will be admitted to the hospital on telemetry for treatment and further evaluation of new onset seizure and electrolyte abnormalities. 1.New onset seizure-Likely secondary to electrolyte abnormalities d/t GI losses, less likely to epilepsy CT negative for any acute intracranial abnormality Getting aggressive electrolyte replacements. Repletion of magnesium and calcium, also determine the. Neurology consult-impression is possibly seizure episode related to above electrolytic abnormalities, will replete electrolytes aggressively, EEG.Monitor telemetry 2.Hypokalemia Pt's potassium 2.3 yesterday, 2.8 today Given potassium chloride yesterday and today-hypokalemia resolved. Repeat labs, follow CMP 3.Hypomagnesemia 1.2 Given Mag 2g IV x1 doses today, continue p.o. replacements also. Follow Mag 4.Elevated ammonia Patient's ammonia 65 -repeated seems to be improved Patient currently not encephalopathic 5.Elevated troponins Yesterday initial troponin 22.2, repeat 132.9-trend down 85.0-75 Pt not complaining of chest pain/pressure EKG negative for ST elevations or depressions Likely secondary to demand ischemia,also elevated cpk , less likely NSTEMI Echocardiogram: Left Ventricle Normal left ventricular cavity size.? There is normal left ventricular wall thickness.? The left ventricular systolic function is normal.? The visually estimated ejection fraction is between 65-70%.? There is no evidence of regional wall motion abnormalities.? Diastolic function is normal for age. Continue aspirin, statin , further workup outpatient. 6.Bile acid malabsorption syndrome Continue cholestyramine If pt's electrolytes are not improved despite replenishment, consult GI 7.Nicotine dependence Occasionally smokes cigarettes Does not want NRT 8.GERD Continue omeprazole 9.Gastroparesis Continue metoclopramide 10.Depression/anxiety Continue home meds inpatient need : treatment of?new onset seizure and electrolyte abnormalities and workup , as well as need aggressive electrolytic replacements. Time Spent With Patient Time: Total time managing care of this patient today ____ minutes. Quality Stroke Does the patient have a stroke diagnosis?: No VTE Prior VTE?: No VTE Risk Level:: Medical - moderate - high VTE Device Contraindication: Treatment Not Indicated VTE Drug Contraindication: N/A - Med Ordered
[2022-05-26] MEDS: Albumin Human 25 % 50 ML 100 ML IV (14:37)
[2022-05-26 15:25] VITALS: BP 117/55; PULSE 79; RESP 16; TEMP 36.3; O2SAT 92
[2022-05-26] MEDS: Enoxaparin Sodium 40 MG/0.4 ML SYRINGE SUBCUT (15:52)
[2022-05-26 19:00] VITALS: BP 112/65; PULSE 82; RESP 15; TEMP 36.1; O2SAT 97
[2022-05-26] MEDS: Benztropine Mesylate 1 MG TABLET PO (19:57)
[2022-05-26] MEDS: Mirtazapine 30 MG TABLET PO (19:57)
[2022-05-26] MEDS: risperiDONE 1 MG TABLET PO (19:57)
[2022-05-26] MEDS: 0.9 % Sodium Chloride Flush 3 ML SYRINGE IVFLUSH (20:00)
[2022-05-27] VITALS (8 sets, daily range): BP systolic 100–133; BP diastolic 53–90; PULSE 76–85; RESP 12–20; TEMP 36.1–37.2; O2SAT 91–96
[2022-05-27] MEDS: Levothyroxine Sodium 75 MCG TABLET PO (05:29)
[2022-05-27 08:32] LABS: Blood Urea Nitrogen 9 mg/dL (9-16); Creatinine Clr Calc Pharmacy 96.6; Estimated Glomerular Filt Rate > 60; Glucose Random 123 mg/dL (60-115)
[2022-05-27] MEDS: Aspirin Enteric Coated 81 MG TABLET.DR PO (08:50)
[2022-05-27] MEDS: Cyclobenzaprine HCl 10 MG TABLET PO ×3 (08:50→21:05)
[2022-05-27] MEDS: Atorvastatin Calcium 80 MG TABLET PO (08:51)
[2022-05-27] MEDS: Omeprazole 40 MG CAPSULE.DR PO (08:51)
[2022-05-27] MEDS: Sertraline HCL 100 MG TABLET PO (08:51)
[2022-05-27] MEDS: Magnesium Oxide 400 MG TABLET 800 MG PO ×2 (08:52→16:08)
[2022-05-27] MEDS: Cholecalciferol (Vitamin D3) 25 MCG TABLET 100 MCG PO (08:52)
[2022-05-27] MEDS: Lipase/Prot/Amylase 24/76/120K 1 CAP CAPSULE.DR 2 CAP PO ×3 (08:52→21:05)
[2022-05-27] MEDS: Docusate Sodium 100 MG CAPSULE PO (08:52)
[2022-05-27] MEDS: 0.9 % Sodium Chloride Flush 3 ML SYRINGE IVFLUSH ×3 (08:53→21:07)
[2022-05-27] MEDS: Metoprolol Succinate ER 12.5 MG HALFTAB.ER.24H PO (08:53)
[2022-05-27] MEDS: Metoclopramide HCl 5 MG TABLET PO ×3 (08:53→21:05)
[2022-05-27 08:54] LABS: Anion Gap 13 (12-20); Carbon Dioxide 22 mmol/L (22-29); Chloride 109 mmol/L (96-108); Sodium 140 mmol/L (135-145)
[2022-05-27] MEDS: Acetaminophen 325 MG TABLET 650 MG PO (09:05)
[2022-05-27 09:09] LABS: Osmolality, Serum 286 mosm/kg (281-305)
[2022-05-27 09:11] LABS: Magnesium 1.3 mg/dL (1.6-2.6)
[2022-05-27] MEDS: Magnesium Sulfate/H2O 2 GM/50 ML PIGGYBACK IV ×2 (11:17→13:19)
--- NOTE | 2022-05-27 12:10 | HO.PM.IMPN ---
Subjective Subjective Date of Service: 05/27/22 Interval History: Hypomagnesemia, hypokalemia, hypocalcemia Review of Systems no new events Denies any nausea vomiting or fever or chills or cough or phlegm . Physical Exam Vital Signs: Vital Signs: Last Vital Signs Temp 98.2 F 05/27/22 11:01 Pulse 84 05/27/22 11:01 Resp 12 05/27/22 11:01 BP 119/71 05/27/22 11:01 Pulse Ox 93 05/27/22 11:01 O2 Del Method 05/27/22 11:01 BMI result Body Mass Index 29.3 Appearance: Alert.? Oriented X3.? not in distress. cvs: rrr, [id number] , no murmur res: clear to auscultation ,no rhonchii or wheezing abd: no rebound or guarding ,nt, bs present. ext pulses present , no cyanosis . neuro: axo3 , nonfocal. Objective Data Active Medications Acetaminophen (Acetaminophen 325 Mg Tablet) 650 mg PO Q6H PRN PRN Reason: Pain, Mild (Pain Scale 1-3) Last Admin: 05/27/22 09:05 Dose: 650 mg Documented By: RANDOLPH Albuterol Sulfate (Albuterol Sulfate (0.083%) 2.5 Mg/3 Ml Vial.Neb) 2.5 mg INHALE Q6H PRN PRN Reason: Shortness of Breath/Wheezing Albuterol Sulfate (Albuterol Sulfate 90 Mcg 8 Gm Inhaler) 2 puff INHALE Q4H PRN PRN Reason: Wheezing Last Admin: 05/26/22 10:46 Dose: 2 puff Documented By: FABBY Lipase/Protease/Amylase (Lipase/Prot/Amylase 24/76/120k 1 Cap Capsule.) 2 cap PO TID [facility] Last Admin: 05/27/22 08:52 Dose: 2 cap Documented By: RANDOLPH Aspirin (Aspirin Enteric Coated 81 Mg Tablet.) 81 mg PO DAILY [facility] Last Admin: 05/27/22 08:50 Dose: 81 mg Documented By: RANDOLPH Atorvastatin Calcium (Atorvastatin Calcium 80 Mg Tablet) 80 mg PO DAILY [facility] Last Admin: 05/27/22 08:51 Dose: 80 mg Documented By: RANDOLPH Benztropine Mesylate (Benztropine Mesylate 1 Mg Tablet) 1 mg PO BEDTIME [facility] Last Admin: 05/26/22 19:57 Dose: 1 mg Documented By: ANTDAVID Clonazepam (Clonazepam 0.5 Mg Tablet) 0.5 mg PO BID PRN PRN Reason: Anxiety Cyclobenzaprine HCl (Cyclobenzaprine Hcl 10 Mg Tablet) 10 mg PO TID [facility] Last Admin: 05/27/22 08:50 Dose: 10 mg Documented By: RANDOLPH Docusate Sodium (Docusate Sodium 100 Mg Capsule) 100 mg PO DAILY PRN PRN Reason: Constipation Docusate Sodium (Docusate Sodium 100 Mg Capsule) 100 mg PO DAILY [facility] Last Admin: 05/27/22 08:52 Dose: 100 mg Documented By: RANDOLPH Enoxaparin Sodium (Enoxaparin Sodium 40 Mg/0.4 Ml Syringe) 40 mg SUBCUT Q24H [facility] Last Admin: 05/26/22 15:52 Dose: 40 mg Documented By: EVERARDO Lactated Ringer's (Lr) 1,000 mls @ 80 mls/hr IVCONT .[id number] [facility] Last Infusion: 05/27/22 05:31 Dose: 80 mls/hr Documented By: AMARI Magnesium Sulfate (Magnesium Sulfate/H2o) 2 gm in 50 mls @ 25 mls/hr IV ONCE ONE Stop: 05/27/22 14:07 Levothyroxine Sodium (Levothyroxine Sodium 75 Mcg Tablet) 75 mcg PO DAILY@0600 [facility] Last Admin: 05/27/22 05:29 Dose: 75 mcg Documented By: AMARI Magnesium Oxide (Magnesium Oxide 400 Mg Tablet) 800 mg PO BIDPC [facility] Last Admin: 05/27/22 08:52 Dose: 800 mg Documented By: RANDOLPH Melatonin (Melatonin 3 Mg Tablet) 3 mg PO BEDTIME PRN PRN Reason: insomnia Metoclopramide HCl (Metoclopramide Hcl 5 Mg Tablet) 5 mg PO TID [facility] Last Admin: 05/27/22 08:53 Dose: 5 mg Documented By: RANDOLPH Metoprolol Succinate (Metoprolol Succinate Er 12.5 Mg Halftab.Er.24h) 12.5 mg PO DAILY [facility]; Protocol Last Admin: 05/27/22 08:53 Dose: 12.5 mg Documented By: RANDOLPH Mirtazapine (Mirtazapine 30 Mg Tablet) 30 mg PO BEDTIME [facility] Last Admin: 05/26/22 19:57 Dose: 30 mg Documented By: ANTDAVID Nitroglycerin (Nitroglycerin 0.4 Mg Tab.Subl) 0.4 mg SUBLINGUAL Q5M PRN PRN Reason: chest pain Omeprazole (Omeprazole 40 Mg Capsule.Dr) 40 mg PO DAILY [facility] Last Admin: 05/27/22 08:51 Dose: 40 mg Documented By: RANDOLPH Ondansetron HCl (Ondansetron Hcl 4 Mg/2 Ml Vial) 4 mg IVPUSH Q8H PRN PRN Reason: Nausea and Vomiting Pharmacy Consult (Consult Rx Perform Med Rec) 1 each MISCELLANE ONCE PRN PRN Reason: Consult order Potassium Chloride (Potassium Chloride Er 10 Meq Capsule.Er) 10 meq PO BID [facility] Last Admin: 05/27/22 08:53 Dose: 10 meq Documented By: RANDOLPH Risperidone (Risperidone 1 Mg Tablet) 1 mg PO BEDTIME [facility] Last Admin: 05/26/22 19:57 Dose: 1 mg Documented By: AMARI Sertraline HCl (Sertraline Hcl 100 Mg Tablet) 100 mg PO DAILY [facility] Last Admin: 05/27/22 08:51 Dose: 100 mg Documented By: RANDOLPH Sodium Chloride (0.9 % Sodium Chloride Flush 3 Ml Syringe) 3 ml IVFLUSH QSHIFT [facility] Last Admin: 05/27/22 08:53 Dose: 3 ml Documented By: RANDOLPH Vitamin D (Cholecalciferol (Vitamin D3) 25 Mcg Tablet) 100 mcg PO DAILY [facility] Last Admin: 05/27/22 08:52 Dose: 100 mcg Documented By: RANDOLPH Labs 05/25/22 11:35 05/27/22 07:05 Labs: Laboratory Results - last 24 hr 05/27/22 05/27/22 07:05 07:05 Anion Gap 13 Estim Creat Clear Calc 96.6 Estimated GFR > 60 Random Glucose 123 H Osmolality 286 Calcium 8.0 L Magnesium 1.3 L* Microbiology Microbiology Results: Microbiology 05/26/22 Unknown Urine Culture - Final Urine clean catch - Urine nguyen top Assessment and Plan (1) Hypocalcemia: Status: Acute (2) Acute hypokalemia: Status: Acute (3) Hypomagnesemia: Status: Acute (4) Vitamin D deficiency: Status: Acute Plan 57-year-old female with a PMH significant for?COPD, anxiety, depression, chronic diarrhea, GERD gastroparesis, and bile acid malabsorption syndrome who returns to the ED for admission to the hospital. Pt initially presented to the ED yesterday for new-onset seizure left AMA because she did not have anyone to watch her dog. Pt will be admitted to the hospital on telemetry for treatment and further evaluation of new onset seizure and electrolyte abnormalities. 1.New onset seizure-Likely secondary to electrolyte abnormalities d/t GI losses, less likely to epilepsy CT negative for any acute intracranial abnormality Getting aggressive electrolyte replacements. Repletion of magnesium and calcium, also determine the. Neurology consult-impression is possibly seizure episode related to above electrolytic abnormalities, will replete electrolytes aggressively, EEG.Monitor telemetry 2.Hypokalemia Pt's potassium 2.3 yesterday, 2.8 today Given potassium chloride yesterday and today-hypokalemia resolved. Repeat labs, follow CMP 3.Hypomagnesemia 1.3 Given Mag 2g IV x2 doses today, continue p.o. replacements also. Follow Mag 4.Elevated ammonia Patient's ammonia 65 -repeated seems to be improved Patient currently not encephalopathic 5.Elevated troponins Yesterday initial troponin 22.2, repeat 132.9-trend down 85.0-75 Pt not complaining of chest pain/pressure EKG negative for ST elevations or depressions Likely secondary to demand ischemia,also elevated cpk , less likely NSTEMI Echocardiogram: Left Ventricle Normal left ventricular cavity size.? There is normal left ventricular wall thickness.? The left ventricular systolic function is normal.? The visually estimated ejection fraction is between 65-70%.? There is no evidence of regional wall motion abnormalities.? Diastolic function is normal for age. Continue aspirin, statin , further workup outpatient. 6.Bile acid malabsorption syndrome Continue cholestyramine If pt's electrolytes are not improved despite replenishment, consult GI 7.Nicotine dependence Occasionally smokes cigarettes Does not want NRT 8.GERD Continue omeprazole 9.Gastroparesis Continue metoclopramide 10.Depression/anxiety Continue home meds inpatient need : treatment of?new onset seizure and electrolyte abnormalities and workup , as well as need aggressive electrolytic replacements. Time Spent With Patient Time: Total time managing care of this patient today ____ minutes. Quality Stroke Does the patient have a stroke diagnosis?: No VTE Prior VTE?: No VTE Risk Level:: Medical - moderate - high VTE Device Contraindication: Treatment Not Indicated VTE Drug Contraindication: N/A - Med Ordered
[2022-05-27] MEDS: Enoxaparin Sodium 40 MG/0.4 ML SYRINGE SUBCUT (16:03)
[2022-05-27] MEDS: Lactated Ringers 1,000 ML 80 ML IVCONT (16:10)
[2022-05-27 17:07] LABS: Creatinine Urine 40.65 mg/dL; Potassium Urine Random 15.3 mmol/L
[2022-05-27 17:12] LABS: Osmolality Urine 388 mosm/kg (373-1093)
[2022-05-27] MEDS: risperiDONE 1 MG TABLET PO (21:05)
[2022-05-27] MEDS: Mirtazapine 30 MG TABLET PO (21:05)
[2022-05-27] MEDS: Benztropine Mesylate 1 MG TABLET PO (21:05)
[2022-05-27] MEDS: Albuterol Sulfate 90 MCG 8 GM INHALER 2 PUFF INHALE (21:09)
--- NOTE | 2022-05-27 22:09 | PM.PNNEP ---
Subjective Subjective Date of Service: 05/27/22 Interval history: Hypomagnesemia, hypokalemia, hypocalcemia Feels better Physical Exam Vital Signs: Vital Signs: Last Vital Signs Temp 97.8 F 05/27/22 19:03 Pulse 85 05/27/22 19:03 Resp 18 05/27/22 19:03 BP 133/90 H 05/27/22 19:03 Pulse Ox 94 05/27/22 19:03 O2 Del Method 05/27/22 19:03 BMI result Body Mass Index 29.3 Appearance: Alert.? Oriented X3.? not in distress. cvs: rrr, [id number] , no murmur res: clear to auscultation ,no rhonchii or wheezing abd: no rebound or guarding ,nt, bs present. ext pulses present , no cyanosis . neuro: axo3 , nonfocal. Objective Data Labs 05/25/22 11:35 05/27/22 07:05 Labs: Laboratory Results - last 24 hr 05/27/22 05/27/22 05/27/22 07:05 07:05 16:30 Sodium 140 Potassium 4.0 Chloride 109 H Carbon Dioxide 22 Anion Gap 13 BUN 9 Creatinine 0.54 Estim Creat Clear Calc 96.6 Estimated GFR > 60 Random Glucose 123 H Osmolality 286 Calcium 8.0 L Magnesium 1.3 L* Urine Osmolality Ur Random Sodium 91.0 Ur Random Potassium Urine Creatinine 40.65 05/27/22 05/27/22 16:30 16:30 Sodium Potassium Chloride Carbon Dioxide Anion Gap BUN Creatinine Estim Creat Clear Calc Estimated GFR Random Glucose Osmolality Calcium Magnesium Urine Osmolality 388 Ur Random Sodium Ur Random Potassium 15.3 Urine Creatinine Microbiology Microbiology Results: Microbiology 05/26/22 Unknown Urine clean catch - Urine nguyen top Urine Culture - Final Procedures Date of Service Date of Service: 05/27/22 Assessment & Plan Assessment and plan (1) Hypocalcemia: Status: Acute Assessment and Plan: Continue PO MAg IV mag PO K ' F/u PTH d/w medical team (2) Hypomagnesemia: Status: Acute (3) Acute hypokalemia: Status: Acute Time Spent With Patient Time: Total time managing care of this patient today ____ minutes. Progress Note: Quality Stroke Does the patient have a stroke diagnosis?: No
[2022-05-28] VITALS (7 sets, daily range): BP systolic 126–147; BP diastolic 67–76; PULSE 85–102; RESP 12–20; TEMP 36.1–37.3; O2SAT 92–94
[2022-05-28] MEDS: Levothyroxine Sodium 75 MCG TABLET PO (05:55)
[2022-05-28 08:23] LABS: Blood Urea Nitrogen 7 mg/dL (9-16); Calcium 8.3 mg/dL (8.4-10.2); Creatinine Clr Calc Pharmacy 98.4; Estimated Glomerular Filt Rate > 60; Glucose Random 121 mg/dL (60-115); Magnesium 1.6 mg/dL (1.6-2.6)
[2022-05-28 08:29] LABS: Anion Gap 12 (12-20); Carbon Dioxide 26 mmol/L (22-29); Chloride 106 mmol/L (96-108); Potassium 4.5 mmol/L (3.3-5.1); Sodium 139 mmol/L (135-145)
[2022-05-28] MEDS: 0.9 % Sodium Chloride Flush 3 ML SYRINGE IVFLUSH ×3 (08:40→22:43)
[2022-05-28] MEDS: Metoprolol Succinate ER 12.5 MG HALFTAB.ER.24H PO (08:41)
[2022-05-28] MEDS: Cyclobenzaprine HCl 10 MG TABLET PO ×3 (08:42→22:39)
[2022-05-28] MEDS: Omeprazole 40 MG CAPSULE.DR PO (08:42)
[2022-05-28] MEDS: Magnesium Oxide 400 MG TABLET 800 MG PO ×2 (08:42→16:11)
[2022-05-28] MEDS: Lipase/Prot/Amylase 24/76/120K 1 CAP CAPSULE.DR 2 CAP PO ×3 (08:42→22:38)
[2022-05-28] MEDS: Sertraline HCL 100 MG TABLET PO (08:43)
[2022-05-28] MEDS: Cholecalciferol (Vitamin D3) 25 MCG TABLET 100 MCG PO (08:43)
[2022-05-28] MEDS: Docusate Sodium 100 MG CAPSULE PO (08:43)
[2022-05-28] MEDS: Aspirin Enteric Coated 81 MG TABLET.DR PO (08:43)
[2022-05-28] MEDS: Atorvastatin Calcium 80 MG TABLET PO (08:43)
[2022-05-28] MEDS: Metoclopramide HCl 5 MG TABLET PO ×3 (08:43→22:38)
[2022-05-28] MEDS: Magnesium Sulfate/H2O 2 GM/50 ML PIGGYBACK IV (11:19)
[2022-05-28] MEDS: Albuterol Sulfate 90 MCG 8 GM INHALER 2 PUFF INHALE ×2 (11:37→23:16)
--- NOTE | 2022-05-28 12:48 | P.PNIM_ITS ---
Subjective Subjective Date of Service: 05/28/22 Interval History: Hypomagnesemia, hypokalemia, hypocalcemia Review of Systems no new events Denies any nausea vomiting or fever or chills or cough or phlegm . Physical Exam Vital Signs: Vital Signs: Last Vital Signs Temp 98.6 F 05/28/22 11:34 Pulse 88 05/28/22 11:34 Resp 12 05/28/22 11:34 BP 126/73 05/28/22 11:34 Pulse Ox 92 05/28/22 11:34 O2 Del Method 05/28/22 11:34 BMI result Body Mass Index 29.3 Appearance: Alert.? Oriented X3.? not in distress. cvs: [id number], [id number] , no murmur res: clear to auscultation ,no rhonchii or wheezing abd: no rebound or guarding ,nt, bs present. ext pulses present , no cyanosis . neuro: axo3 , nonfocal. Objective Data Active Medications Acetaminophen (Acetaminophen 325 Mg Tablet) 650 mg PO Q6H PRN PRN Reason: Pain, Mild (Pain Scale 1-3) Last Admin: 05/27/22 09:05 Dose: 650 mg Documented By: RANDOLPH Albuterol Sulfate (Albuterol Sulfate (0.083%) 2.5 Mg/3 Ml Vial.Neb) 2.5 mg INHALE Q6H PRN PRN Reason: Shortness of Breath/Wheezing Albuterol Sulfate (Albuterol Sulfate 90 Mcg 8 Gm Inhaler) 2 puff INHALE Q4H PRN PRN Reason: Wheezing Last Admin: 05/28/22 11:37 Dose: 2 puff Documented By: ROSALIE Lipase/Protease/Amylase (Lipase/Prot/Amylase 24/76/120k 1 Cap Capsule.) 2 cap PO TID [facility] Last Admin: 05/28/22 08:42 Dose: 2 cap Documented By: ROSALIE Aspirin (Aspirin Enteric Coated 81 Mg Tablet.) 81 mg PO DAILY [facility] Last Admin: 05/28/22 08:43 Dose: 81 mg Documented By: ROSALIE Atorvastatin Calcium (Atorvastatin Calcium 80 Mg Tablet) 80 mg PO DAILY [facility] [place] Last Admin: 05/28/22 08:43 Dose: 80 mg Documented By: ROSALIE Benztropine Mesylate (Benztropine Mesylate 1 Mg Tablet) 1 mg PO BEDTIME [facility] [place] Last Admin: 05/27/22 21:05 Dose: 1 mg Documented By: ANTOIC Calcium Carbonate (Calcium Carbonate 500 Mg Tablet) 250 mg PO DAILY [facility] [place] Last Admin: 05/28/22 08:43 Dose: 250 mg Documented By: ROSALIE Clonazepam (Clonazepam 0.5 Mg Tablet) 0.5 mg PO BID PRN PRN Reason: Anxiety Cyclobenzaprine HCl (Cyclobenzaprine Hcl 10 Mg Tablet) 10 mg PO TID [facility] [place] [place] Last Admin: 05/28/22 08:42 Dose: 10 mg Documented By: ROSALIE Docusate Sodium (Docusate Sodium 100 Mg Capsule) 100 mg PO DAILY PRN PRN Reason: Constipation Docusate Sodium (Docusate Sodium 100 Mg Capsule) 100 mg PO DAILY [facility] [place] Last Admin: 05/28/22 08:43 Dose: 100 mg Documented By: ROSALIE Enoxaparin Sodium (Enoxaparin Sodium 40 Mg/0.4 Ml Syringe) 40 mg SUBCUT Q24H [facility] [place] Last Admin: 05/27/22 16:03 Dose: 40 mg Documented By: RANDOLPH Ergocalciferol (Ergocalciferol (Vitamin D2) 1,250 Mcg Capsule) 1,250 mcg PO Rivas@1300 [facility] [place] Levothyroxine Sodium (Levothyroxine Sodium 75 Mcg Tablet) 75 mcg PO DAILY@0600 [facility] [place] Last Admin: 05/28/22 05:55 Dose: 75 mcg Documented By: AMARI Magnesium Oxide (Magnesium Oxide 400 Mg Tablet) 800 mg PO BIDPC [facility] Last Admin: 05/28/22 08:42 Dose: 800 mg Documented By: ROSALIE Melatonin (Melatonin 3 Mg Tablet) 3 mg PO BEDTIME PRN PRN Reason: insomnia Metoclopramide HCl (Metoclopramide Hcl 5 Mg Tablet) 5 mg PO TID [facility] [place] Last Admin: 05/28/22 08:43 Dose: 5 mg Documented By: ROSALIE Metoprolol Succinate (Metoprolol Succinate Er 12.5 Mg Halftab.Er.24h) 12.5 mg PO DAILY [facility] [place]; Protocol Last Admin: 05/28/22 08:41 Dose: 12.5 mg Documented By: ROSALIE Mirtazapine (Mirtazapine 30 Mg Tablet) 30 mg PO BEDTIME [facility] [place] Last Admin: 05/27/22 21:05 Dose: 30 mg Documented By: ANTOIC Nitroglycerin (Nitroglycerin 0.4 Mg Tab.Subl) 0.4 mg SUBLINGUAL Q5M PRN PRN Reason: chest pain Omeprazole (Omeprazole 40 Mg Capsule.Dr) 40 mg PO DAILY [facility] [place] Last Admin: 05/28/22 08:42 Dose: 40 mg Documented By: CTORRPreston Ondansetron HCl (Ondansetron Hcl 4 Mg/2 Ml Vial) 4 mg IVPUSH Q8H PRN PRN Reason: Nausea and Vomiting Pharmacy Consult (Consult Rx Perform Med Rec) 1 each MISCELLANE ONCE PRN PRN Reason: Consult order Potassium Chloride (Potassium Chloride Er 10 Meq Capsule.Er) 10 meq PO BID [facility] [place] Last Admin: 05/28/22 08:41 Dose: 10 meq Documented By: CTORRPreston Risperidone (Risperidone 1 Mg Tablet) 1 mg PO BEDTIME [facility] [place] Last Admin: 05/27/22 21:05 Dose: 1 mg Documented By: ANTOIC Sertraline HCl (Sertraline Hcl 100 Mg Tablet) 100 mg PO DAILY [facility] [place] Last Admin: 05/28/22 08:43 Dose: 100 mg Documented By: CTORRPreston Sodium Chloride (0.9 % Sodium Chloride Flush 3 Ml Syringe) 3 ml IVFLUSH QSHIFT [facility] [place] Last Admin: 05/28/22 08:40 Dose: 3 ml Documented By: CTORRPreston Labs 05/25/22 11:35 05/28/22 07:39 Labs: Laboratory Results - last 24 hr 05/27/22 05/27/22 05/27/22 16:30 16:30 16:30 Anion Gap Estim Creat Clear Calc Estimated GFR Random Glucose Calcium Magnesium Urine Osmolality 388 Ur Random Sodium 91.0 Ur Random Potassium 15.3 Urine Creatinine 40.65 05/28/22 07:39 Anion Gap 12 Estim Creat Clear Calc 98.4 Estimated GFR > 60 Random Glucose 121 H Calcium 8.3 L Magnesium 1.6 Urine Osmolality Ur Random Sodium Ur Random Potassium Urine Creatinine Microbiology Microbiology Results: Microbiology 05/26/22 Unknown Urine Culture - Final Urine clean catch - Urine nguyen top Assessment and Plan (1) Vitamin D deficiency: Status: Acute (2) Hypocalcemia: Status: Acute (3) Acute hypokalemia: Status: Acute (4) Hypomagnesemia: Status: Acute (5) Seizure: Status: Acute Plan 57-year-old female with a PMH significant for?COPD, anxiety, depression, chronic diarrhea, GERD gastroparesis, and bile acid malabsorption syndrome who returns to the ED for admission to the hospital. Pt initially presented to the ED yesterday for new-onset seizure left AMA because she did not have anyone to watch her dog. Pt will be admitted to the hospital on telemetry for treatment and further evaluation of new onset seizure and electrolyte abnormalities. 1.seizure -Likely secondary to electrolyte abnormalities d/t GI losses, less likely to epilepsy CT negative for any acute intracranial abnormality Getting aggressive electrolyte replacements.? Repletion of magnesium and calcium, also determine the. Monitor telemetry EEG-This waking EEG is within normal limits echo seems fine (05/25/22):Conclusions: - The left ventricular systolic function is normal.? The visually estimated ejection fraction is between 65-70%. ? - No obvious valvular pathology seen on this study.?? Neurology consult-impression is possibly seizure episode related to above electrolytic abnormalities, will replete electrolytes aggressively,eeg seems f ine, 2.Hypokalemia repleted and resolved. Repeat labs, follow CMP 3.Hypomagnesemia 1.6 still boderline Given Mag IV 1 gm x1 doses today, continue p.o. replacements also. Follow Mag,may need slow mag outpatient. 4.Elevated ammonia Patient's ammonia 65 -repeated seems to be improved Patient currently not encephalopathic 5.Elevated troponins Yesterday initial troponin 22.2, repeat 132.9-trend down 85.0-75 Pt not complaining of chest pain/pressure EKG negative for ST elevations or depressions Likely secondary to demand ischemia,also elevated cpk , less likely NSTEMI Echocardiogram: Left Ventricle Normal left ventricular cavity size.? There is normal left ventricular wall thickness.? The left ventricular systolic function is normal.? The visually estimated ejection fraction is between 65-70%.? There is no evidence of regional wall motion abnormalities.? Diastolic function is normal for age. Continue aspirin, statin , further workup outpatient. 6.Bile acid malabsorption syndrome Continue cholestyramine If pt's electrolytes are not improved despite replenishment, consult GI 7.Nicotine dependence Occasionally smokes cigarettes Does not want NRT 8.GERD will dc omeprazole ,might be contributing to electrolytic abnormalities. 9.Gastroparesis Continue metoclopramide 10.Depression/anxiety Continue home meds inpatient need : treatment of?new onset seizure and electrolyte abnormalities and workup , as well as need aggressive electrolytic replacements. Time Spent With Patient Time: Total time managing care of this patient today ____ minutes. Quality Stroke Does the patient have a stroke diagnosis?: No VTE Prior VTE?: No VTE Risk Level:: Medical - moderate - high VTE Device Contraindication: Treatment Not Indicated VTE Drug Contraindication: N/A - Med Ordered
--- NOTE | 2022-05-28 12:56 | P.PNIM_ITS ---
Subjective Subjective Date of Service: 05/27/22 Interval History: Hypomagnesemia, hypokalemia, hypocalcemia Review of Systems Denies any nausea vomiting or fever or chills or cough or phlegm . Physical Exam Vital Signs: Vital Signs: Last Vital Signs BMI result Vitals from 05/27/2022 reviewed. ?Appearance: Alert.? Oriented X3.? not in distress. cvs: [id number], [id number] , no murmur res: clear to auscultation ,no rhonchii or wheezing abd: no rebound or guarding ,nt, bs present. ext pulses present , no cyanosis . neuro: axo3 , nonfocal. Objective Data Active Medications Acetaminophen (Acetaminophen 325 Mg Tablet) 650 mg PO Q6H PRN PRN Reason: Pain, Mild (Pain Scale 1-3) Last Admin: 05/27/22 09:05 Dose: 650 mg Documented By: RANDOLPH Albuterol Sulfate (Albuterol Sulfate (0.083%) 2.5 Mg/3 Ml Vial.Eugenio) 2.5 mg INHALE Q6H PRN PRN Reason: Shortness of Breath/Wheezing Albuterol Sulfate (Albuterol Sulfate 90 Mcg 8 Gm Inhaler) 2 puff INHALE Q4H PRN PRN Reason: Wheezing Last Admin: 05/28/22 11:37 Dose: 2 puff Documented By: ROSALIE Lipase/Protease/Amylase (Lipase/Prot/Amylase 24/76/120k 1 Cap Capsule.) 2 cap PO TID [facility] Last Admin: 05/28/22 08:42 Dose: 2 cap Documented By: ROSALIE Aspirin (Aspirin Enteric Coated 81 Mg Tablet.) 81 mg PO DAILY [facility] Last Admin: 05/28/22 08:43 Dose: 81 mg Documented By: ROSALIE Atorvastatin Calcium (Atorvastatin Calcium 80 Mg Tablet) 80 mg PO DAILY [facility] Last Admin: 05/28/22 08:43 Dose: 80 mg Documented By: ROSALIE Benztropine Mesylate (Benztropine Mesylate 1 Mg Tablet) 1 mg PO BEDTIME [facility] Last Admin: 05/27/22 21:05 Dose: 1 mg Documented By: ANTOIC Clonazepam (Clonazepam 0.5 Mg Tablet) 0.5 mg PO BID PRN PRN Reason: Anxiety Cyclobenzaprine HCl (Cyclobenzaprine Hcl 10 Mg Tablet) 10 mg PO TID [facility] Last Admin: 05/28/22 08:42 Dose: 10 mg Documented By: ROSALIE Docusate Sodium (Docusate Sodium 100 Mg Capsule) 100 mg PO DAILY PRN PRN Reason: Constipation Docusate Sodium (Docusate Sodium 100 Mg Capsule) 100 mg PO DAILY [facility] Last Admin: 05/28/22 08:43 Dose: 100 mg Documented By: ROSALIE Enoxaparin Sodium (Enoxaparin Sodium 40 Mg/0.4 Ml Syringe) 40 mg SUBCUT Q24H [facility] Last Admin: 05/27/22 16:03 Dose: 40 mg Documented By: RANDOLPH Ergocalciferol (Ergocalciferol (Vitamin D2) 1,250 Mcg Capsule) 1,250 mcg PO Rivas@1300 [facility] Levothyroxine Sodium (Levothyroxine Sodium 75 Mcg Tablet) 75 mcg PO DAILY@0600 [facility] Last Admin: 05/28/22 05:55 Dose: 75 mcg Documented By: ANTDAVID Magnesium Oxide (Magnesium Oxide 400 Mg Tablet) 800 mg PO BIDPC [facility] Last Admin: 05/28/22 08:42 Dose: 800 mg Documented By: ROSALIE Melatonin (Melatonin 3 Mg Tablet) 3 mg PO BEDTIME PRN PRN Reason: insomnia Metoclopramide HCl (Metoclopramide Hcl 5 Mg Tablet) 5 mg PO TID [facility] Last Admin: 05/28/22 08:43 Dose: 5 mg Documented By: ROSALIE Metoprolol Succinate (Metoprolol Succinate Er 12.5 Mg Halftab.Er.24h) 12.5 mg PO DAILY [facility]; Protocol Last Admin: 05/28/22 08:41 Dose: 12.5 mg Documented By: ROSALIE Mirtazapine (Mirtazapine 30 Mg Tablet) 30 mg PO BEDTIME [facility] Last Admin: 05/27/22 21:05 Dose: 30 mg Documented By: ANTDAVID Nitroglycerin (Nitroglycerin 0.4 Mg Tab.Subl) 0.4 mg SUBLINGUAL Q5M PRN PRN Reason: chest pain Ondansetron HCl (Ondansetron Hcl 4 Mg/2 Ml Vial) 4 mg IVPUSH Q8H PRN PRN Reason: Nausea and Vomiting Pharmacy Consult (Consult Rx Perform Med Rec) 1 each MISCELLANE ONCE PRN PRN Reason: Consult order Potassium Chloride (Potassium Chloride Er 10 Meq Capsule.Er) 10 meq PO BID [facility] Last Admin: 05/28/22 08:41 Dose: 10 meq Documented By: ROSALIE Risperidone (Risperidone 1 Mg Tablet) 1 mg PO BEDTIME [facility] Last Admin: 05/27/22 21:05 Dose: 1 mg Documented By: ANTOIC Sertraline HCl (Sertraline Hcl 100 Mg Tablet) 100 mg PO DAILY [facility] Last Admin: 05/28/22 08:43 Dose: 100 mg Documented By: ROSALIE Sodium Chloride (0.9 % Sodium Chloride Flush 3 Ml Syringe) 3 ml IVFLUSH QSHIFT [facility] Last Admin: 05/28/22 08:40 Dose: 3 ml Documented By: ROSALIE Labs 05/25/22 11:35 05/28/22 07:39 Labs: Laboratory Results - last 24 hr 05/27/22 05/27/22 05/27/22 16:30 16:30 16:30 Anion Gap Estim Creat Clear Calc Estimated GFR Random Glucose Calcium Magnesium Urine Osmolality 388 Ur Random Sodium 91.0 Ur Random Potassium 15.3 Urine Creatinine 40.65 05/28/22 07:39 Anion Gap 12 Estim Creat Clear Calc 98.4 Estimated GFR > 60 Random Glucose 121 H Calcium 8.3 L Magnesium 1.6 Urine Osmolality Ur Random Sodium Ur Random Potassium Urine Creatinine Microbiology Microbiology Results: Microbiology 05/26/22 Unknown Urine Culture - Final Urine clean catch - Urine nguyen top Assessment and Plan (1) Vitamin D deficiency: Status: Acute (2) Hypocalcemia: Status: Acute (3) Acute hypokalemia: Status: Acute (4) Hypomagnesemia: Status: Acute (5) Seizure: Status: Acute Plan date of service:05/27/22 57-year-old female with a PMH significant for?COPD, anxiety, depression, chronic diarrhea, GERD gastroparesis, and bile acid malabsorption syndrome who returns to the ED for admission to the hospital. Pt initially presented to the ED yesterday for new-onset seizure left AMA because she did not have anyone to watch her dog. Pt will be admitted to the hospital on telemetry for treatment and further evaluation of new onset seizure and electrolyte abnormalities. 1.seizure -Likely secondary to electrolyte abnormalities d/t GI losses, less likely to epilepsy CT negative for any acute intracranial abnormality Getting aggressive electrolyte replacements.? Repletion of magnesium and calcium, also determine the. Monitor telemetry EEG-This waking EEG is within normal limits echo seems fine (05/25/22):Conclusions: - The left ventricular systolic function is normal.? The visually estimated ejection fraction is between 65-70%. ? - No obvious valvular pathology seen on this study.?? Neurology consult-impression is possibly seizure episode related to above electrolytic abnormalities, will replete electrolytes aggressively,eeg seems fine, 2.Hypokalemia repleted and resolved. Repeat labs, follow CMP 3.Hypomagnesemia 1.3 Given Mag IV 2gm [id number] today, continue p.o. replacements also. Follow Mag,may need slow mag outpatient. 4.Elevated ammonia Patient's ammonia 65 -repeated seems to be improved Patient currently not encephalopathic 5.Elevated troponins Yesterday initial troponin 22.2, repeat 132.9-trend down 85.0-75 Pt not complaining of chest pain/pressure EKG negative for ST elevations or depressions Likely secondary to demand ischemia,also elevated cpk , less likely NSTEMI Echocardiogram: Left Ventricle Normal left ventricular cavity size.? There is normal left ventricular wall thickness.? The left ventricular systolic function is normal.? The visually estimated ejection fraction is between 65-70%.? There is no evidence of regional wall motion abnormalities.? Diastolic function is normal for age. Continue aspirin, statin , further workup outpatient. 6.Bile acid malabsorption syndrome Continue cholestyramine If pt's electrolytes are not improved despite replenishment, consult GI 7.Nicotine dependence Occasionally smokes cigarettes Does not want NRT 8.GERD will dc omeprazole ,might be contributing to electrolytic abnormalities. 9.Gastroparesis Continue metoclopramide 10.Depression/anxiety Continue home meds inpatient need : treatment of?new onset seizure and electrolyte abnormalities and workup , as well as need aggressive electrolytic replacements. Time Spent With Patient Time: Total time managing care of this patient today ____ minutes. Quality Stroke Does the patient have a stroke diagnosis?: No VTE Prior VTE?: No VTE Risk Level:: Medical - moderate - high VTE Device Contraindication: Treatment Not Indicated VTE Drug Contraindication: N/A - Med Ordered
--- NOTE | 2022-05-28 12:58 | PM.PNNEP ---
Subjective Subjective Date of Service: 05/28/22 Interval history: Hypomagnesemia, hypokalemia, hypocalcemia Physical Exam Vital Signs: Vital Signs: Last Vital Signs Temp 98.6 F 05/28/22 11:34 Pulse 88 05/28/22 11:34 Resp 12 05/28/22 11:34 BP 126/73 05/28/22 11:34 Pulse Ox 92 05/28/22 11:34 O2 Del Method 05/28/22 11:34 BMI result Body Mass Index 29.3 Appearance: Alert.? Oriented X3.? not in distress. cvs: rrr, [id number] , no murmur res: clear to auscultation ,no rhonchii or wheezing abd: no rebound or guarding ,nt, bs present. ext pulses present , no cyanosis . neuro: axo3 , nonfocal. Objective Data Labs 05/25/22 11:35 05/28/22 07:39 Labs: Laboratory Results - last 24 hr 05/27/22 05/27/22 05/27/22 16:30 16:30 16:30 Sodium Potassium Chloride Carbon Dioxide Anion Gap BUN Creatinine Estim Creat Clear Calc Estimated GFR Random Glucose Calcium Magnesium Urine Osmolality 388 Ur Random Sodium 91.0 Ur Random Potassium 15.3 Urine Creatinine 40.65 05/28/22 07:39 Sodium 139 Potassium 4.5 Chloride 106 Carbon Dioxide 26 Anion Gap 12 BUN 7 L Creatinine 0.53 Estim Creat Clear Calc 98.4 Estimated GFR > 60 Random Glucose 121 H Calcium 8.3 L Magnesium 1.6 Urine Osmolality Ur Random Sodium Ur Random Potassium Urine Creatinine Microbiology Microbiology Results: Microbiology 05/26/22 Unknown Urine clean catch - Urine nguyen top Urine Culture - Final Procedures Date of Service Date of Service: 05/28/22 Assessment & Plan Assessment and plan (1) Hypocalcemia: Status: Acute Assessment and Plan: Continue PO MAg - Suggest Slow mag 1 tab BID Vid D 50 K once a week PO K ' F/u PTH Re low Mag : Suggest d/c PPI Spot Urine Mag - Pending d/w medical team (2) Hypomagnesemia: Status: Acute (3) Acute hypokalemia: Status: Acute Time Spent With Patient Time: Total time managing care of this patient today ____ minutes. Progress Note: Quality Stroke Does the patient have a stroke diagnosis?: No
[2022-05-28] MEDS: Ergocalciferol (Vitamin D2) 1,250 MCG CAPSULE 1250 MCG PO (13:11)
[2022-05-28] MEDS: Enoxaparin Sodium 40 MG/0.4 ML SYRINGE SUBCUT (16:12)
[2022-05-28] MEDS: Acetaminophen 325 MG TABLET 650 MG PO (16:15)
[2022-05-28] MEDS: risperiDONE 1 MG TABLET PO (22:38)
[2022-05-28] MEDS: Mirtazapine 30 MG TABLET PO (22:38)
[2022-05-28] MEDS: Benztropine Mesylate 1 MG TABLET PO (22:39)
[2022-05-29 03:46] VITALS: BP 135/79; PULSE 98; TEMP 37.3; O2SAT 93
[2022-05-29] MEDS: Levothyroxine Sodium 75 MCG TABLET PO (06:01)
[2022-05-29 07:21] LABS: Estimated Average Glucose 97 mg/dL
[2022-05-29 07:28] LABS: Anion Gap 14 (12-20); Blood Urea Nitrogen 6 mg/dL (9-16); Carbon Dioxide 25 mmol/L (22-29); Chloride 102 mmol/L (96-108); Creatinine Clr Calc Pharmacy 82.8; Estimated Glomerular Filt Rate > 60; Glucose Random 112 mg/dL (60-115); Magnesium 1.5 mg/dL (1.6-2.6); Sodium 136 mmol/L (135-145)
[2022-05-29 07:37] VITALS: BP 142/90; PULSE 102; RESP 16; TEMP 36.6; O2SAT 94
[2022-05-29] MEDS: Magnesium Sulfate/H2O 2 GM/50 ML PIGGYBACK IV (07:58)
[2022-05-29] MEDS: 0.9 % Sodium Chloride Flush 3 ML SYRINGE IVFLUSH (08:00)
[2022-05-29] MEDS: Aspirin Enteric Coated 81 MG TABLET.DR PO (08:00)
[2022-05-29] MEDS: Magnesium Oxide 400 MG TABLET 800 MG PO (08:00)
[2022-05-29] MEDS: Lipase/Prot/Amylase 24/76/120K 1 CAP CAPSULE.DR 2 CAP PO (08:01)
[2022-05-29] MEDS: Metoclopramide HCl 5 MG TABLET PO (08:01)
[2022-05-29] MEDS: Sertraline HCL 100 MG TABLET PO (08:02)
[2022-05-29] MEDS: Cyclobenzaprine HCl 10 MG TABLET PO (08:02)
[2022-05-29] MEDS: Atorvastatin Calcium 80 MG TABLET PO (08:03)
[2022-05-29] MEDS: Metoprolol Succinate ER 12.5 MG HALFTAB.ER.24H PO (08:03)
[2022-05-29] MEDS: Acetaminophen 325 MG TABLET 650 MG PO (08:07)
--- NOTE | 2022-05-29 08:20 | CONS_ITS ---
DATE OF SERVICE: 05/26/2022 REASON FOR CONSULTATION: Consult requested by the medical team to evaluate and help in management of patient with severe hypomagnesemia and hypocalcemia. HISTORY OF PRESENT ILLNESS: The patient is a 57-year-old female with past medical history of gastroparesis, history of malabsorption, who has a history of chronic on and off diarrhea, decreased p.o. intake. She was in the hospital for elevated troponin recently and electrolyte abnormalities, but the patient left. She had a seizure and presented again to the hospital. Her electrolytes were abnormal including severe hypomagnesemia with a magnesium level of less than 0.6, which has improved to 1.2 at the present time. There is no chest pain or shortness of breath, nausea, vomiting, diarrhea. There is no fever or chills. Ammonia level was 65. Renal consult has been requested for help with management of hypomagnesemia. REVIEW OF SYSTEMS: The patient did complain of dizziness. She has had diarrhea. All other system reviewed were negative. PAST MEDICAL HISTORY: History of anxiety, arthritis, asthma, back pain, COPD, depression, hiatal hernia, fibromyalgia, gastroparesis, GERD, hyperlipidemia, hypothyroidism, and smoking. FAMILY HISTORY: Father had a stroke. There are diabetes and coronary artery disease in the family. PAST SURGICAL HISTORY: History of cholecystectomy, history of gastroduodenoscopy done in the past, history of hiatal hernia repair. PERSONAL AND SOCIAL HISTORY: It is unclear if the patient drinks alcohol. Smokes half pack of cigarette. Does not use drugs. ALLERGIES: TO AMOXICILLIN. MEDICATIONS: At home include benztropine, sertraline, cholecalciferol, clonazepam, mirtazapine, risperidone, riboflavin, Colace, cyclobenzaprine, melatonin. PHYSICAL EXAMINATION: GENERAL: Patient is resting in the bed. VITAL SIGNS: Blood pressure 112/82, pulse 78, afebrile. HEENT: Shows pupils equal bilaterally to light. NECK: No jugular venous distention is noted. Neck was supple. CARDIOVASCULAR SYSTEM: S1, S2 without rub. RESPIRATORY SYSTEM: Decreased in bases. No crepitation or rhonchi is noted. ABDOMEN: Soft, nontender. Bowel sounds normal. EXTREMITIES: No edema. LABORATORY DATA: Done recently; sodium 141, potassium 4.0, chloride 113, CO2 of 19, BUN 10, creatinine 0.74, magnesium 1.2, calcium 7.5. IMPRESSION: A 57-year-old female with: 1. Severe hypokalemia: Hypokalemia in this patient is due to decreased p.o. intake with decreased body source of potassium. She was also severely hypomagnesemic, which could have contributed to her hypokalemia. 2. Severe hypomagnesemia, which is likely due to decreased intake. It is unclear if she had gastrointestinal losses. She is not on any medication, which can cause hypomagnesemia like proton pump inhibitor. 3. Hypocalcemia in the setting of hypomagnesemia. 4. Seizures due to electrolyte imbalance. RECOMMENDATIONS: At this juncture, taking the liberty to order spot urine for potassium and magnesium. We will try to see the amount of magnesium loss via the urine. I recommended aggressive replacement of magnesium and potassium as being done at the present time. I also agree with checking a PTH level. A 25-hydroxy vitamin D3 level is on the low side, and I recommend giving vitamin D supplementation for the patient. Thank you for allowing me to participate in medical management of the patient. MD GIGI Ríos/MARCIN / [phone]
[2022-05-29 10:56] LABS: Magnesium 2.5 mg/dL (1.6-2.6)
[2022-05-29 11:19] VITALS: BP 129/77; PULSE 90; RESP 16; TEMP 36.7; O2SAT 90
--- NOTE | 2022-05-29 12:12 | MHC.CM.PN ---
Patient has been medically cleared for dc with services. Patient is active with [facility], who has been notified of today's dc. DC IMM has been addressed e with Patient at bedside.
--- NOTE | 2022-05-29 13:09 | P.DS_ITS ---
DS: Providers Provider Date of Service: 05/29/22 Date of admission: 05/25/22 15:18 Date of discharge: 05/29/22 Primary care physician: Jp Monsivais PA-C Consults: 05/25/22 15:27 Consult to Neurology Routine Consulting Provider: [facility] Reason for consultation: New onset seizure 05/26/22 11:26 Consult to Nephrology Routine Consulting Provider: Catracho Humphries Reason for consultation: mutiple elctrolytic abnormalities Has provider been notified: No Attending physician on discharge: Edward Bang DS: Diagnosis Discharge Diagnosis (1) Hypocalcemia: Status: Acute (2) Hypomagnesemia: Status: Acute (3) Acute hypokalemia: Status: Acute (4) Seizure: Status: Acute (5) Vitamin D deficiency: Status: Acute DS: Summary Hospital Course Hospital Course: 57-year-old female with a PMH significant for?COPD, anxiety, depression, chronic diarrhea, GERD gastroparesis, and bile acid malabsorption syndrome who returns to the ED for admission to the hospital. Pt initially presented to the ED yesterday for new-onset seizure. Pt states she was with her friend at home when she felt lightheaded/dizzy and then fell to the floor in full tonic-clonic seizure with urinary and fecal incontinence. Lasted approximately 10 minutes with EMS witnessing the last 2 minutes. Pt denies any previous seizure hx. Per EMS, pt was confused after seizure and initially combative. No biting of tongue. In ED workup showed elevated troponins, initial 22 and repeat 132, treated with aspirin. Pt not complaining of chest pain/pressure, EKG negative for ST elevations and depressions. Electrolytes showed calcium 7.5, potassium 2.3. Ammonia 65. Pt did not want to stay in the hospital because she did not have anyone to watch her dog, left AMA. Pt returns today for admission after finding care for her dog. Still feels slightly dizzy and lightheaded. No repeat seizures. Denies chest pain/pressure, palpitations. No SOB. Denies abdominal pain. Pt has chronic, intermittent diarrhea episodes that normally lasts 4-5 days in a row. Currently pt has had a week of diarrhea that ended yesterday. Pt has had some nausea but no vomiting. 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 Currently trying to quit smoking. In the ED labs were significant for minor leukocytosis of 0.5, potassium 2.8, calcium of 7.7, magnesium < 0.6, AST of 50, alk-phos of 118, and troponin of 85.0 (down from 132.9 yesterday). CXR yesterday showed no cardiopulmonary disease. CT?of head yesterday showed no acute intracranial abnormality. EKG demonstrated Pt was treated with magnesium 2 g IV, and potassium chloride. Pt will be admitted to the hospital for treatment and further evaluation of electrolyte abnormalities and new onset seizure. Hospital course: Patient was admitted with episode of seizure, multiple electrolytic abnormalities (hypocalcemia hypomagnesemia and hypokalemia.): Started on aggressive electrolytic at repletion, also found to have determine D deficiency: Patient seems to be improved significantly with electrolytic repletion, also given vitamin-D replacement. in addition seen by Neurology seizure episode thought to be related to electrolytic abnormalities. No further seizure event in the hospital. Mild rhabdo and also elevation of LFTs insetting of elevated cpk: given hydration,seems better. Lft's -seems improving , incidental ammonia elevated ( during last Ed visit )- repeated ammonia levels improved, patient is asymptomatic ,monitor LFTs and ammonia outpatient with PCP and further management as per PCP. Patient was strongly advised to avoid driving until seen by PCP. In addition patient is to follow-up with PCP outpatient for follow-up as well as need BMP and magnesium levels outpatient. Consider follow-up with Nephrology outpatient. patient has mild troponin elevation possible demand related , patient asymptomatic, EKG seems similar to previous, echo seems fine : Further workup out patiently. Plan: Continue magnesium replacements. Also continue with her min D replacements. Monitor BMP, and magnesium was LFTs and ammonia outpatient . 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 Patient was strongly advised to avoid driving until seen by PCP. As assessment and plan discussed with patient detail and she understand and in agreement with the plan, time spent 50 minute. Patient will be going home she already has VNA. Time Spent with Patient Time attestation: Total time managing care of this patient today ____ minutes. Discharge coordination time: Greater than 30 minutes Quality: Safe Use of Opioids Does Pt have an Active Cancer Diagnosis on the Problem List?: No Quality: Stroke Does the patient have a stroke diagnosis?: No Physical Exam Vital Signs: Vital Signs: Last Vital Signs Temp 98.0 F 05/29/22 11:19 Pulse 90 05/29/22 11:19 Resp 16 05/29/22 11:19 BP 129/77 05/29/22 11:19 Pulse Ox 90 L 05/29/22 11:19 O2 Del Method 05/29/22 11:19 BMI result Body Mass Index 29.3 Appearance: Alert.? Oriented X3.? not in distress. cvs: rrr, [id number] , no murmur res: clear to auscultation ,no rhonchii or wheezing abd: no rebound or guarding ,nt, bs present. ext pulses present , no cyanosis . neuro: axo3 , nonfocal. DS: Data Data Completed and Pending Labs on day of discharge: Laboratory Results - last 24 hr 05/29/22 05/29/22 05/29/22 06:34 06:34 10:17 Sodium 136 Potassium 5.0 Chloride 102 Carbon Dioxide 25 Anion Gap 14 BUN 6 L Creatinine 0.63 Estim Creat Clear Calc 82.8 Estimated GFR > 60 Random Glucose 112 Estimat Average Glucose 97 Hemoglobin A1c % 5.0 Calcium 9.0 D Magnesium 1.5 L 2.5 Imaging Chest x-ray: Radiologist's impression: ECHO: Conclusions: - The left ventricular systolic function is normal.? The visually estimated ejection fraction is between 65-70%. ? - No obvious valvular pathology seen on this study.? Findings Left Ventricle Normal left ventricular cavity size.? There is normal left ventricular wall thickness.? The left ventricular systolic function is normal.? The visually estimated ejection fraction is between 65-70%.? There is no evidence of regional wall motion abnormalities.? Diastolic function is normal for age. Right Ventricle Normal right ventricular cavity size and systolic function. Atria Both atria are normal in size. Aortic Valve There is a normal trileaflet aortic valve.? There is no aortic valve stenosis.? There is no aortic valve regurgitation. Mitral Valve The mitral valve appears normal.? There is trace mitral valve regurgitation. There is no mitral valve stenosis. Pulmonic Valve The pulmonic valve is likely normal. Tricuspid Valve Normal tricuspid valve structure.? There is trace tricuspid valve regurgitation.? Tricuspid regurgitation envelope is inadequate for calculation of right ventricular systolic pressure. Great Vessels The asc aorta is normal in size. Venous The inferior vena cava is normal in size and collapses greater than 50% with inspiration. Pericardium/Pleural There is no evidence of pericardial effusion. Prior Study Comparison No prior study available for comparison. Recommendations, Care & Conclusions No obvious valvular pathology seen on this study. Discharge Plan Discharge Anticipated Discharge Date/Time: 05/29/22 11:36 Patient Disposition: Home Health Service Discharge Diagnosis: Vitamin-D deficiency, seizures episode, hypomagnesemia/hypokalemia/hypocalcemia. Referrals: [facility] [Outside] - 1 Week Jp Monsivais PA-C [Primary Care Provider] - 1 Week Discharge Medications: New famotidine [Pepcid] 20 mg tablet 20 mg PO DAILY Qty: 30 0RF ergocalciferol (vitamin D2) [Vitamin D2] 1,250 mcg (50,000 unit) Capsule 1,250 mcg PO Rivas@1300 Qty: 7 0RF magnesium oxide 400 mg (241.3 mg magnesium) Tablet 800 mg PO BIDPC Qty: 60 0RF Continued albuterol sulfate 2.5 mg /3 mL (0.083 %) solution for nebulization 2.5 mg inhalation Q6H PRN (Reason: shortness of breath or wheezing) 30 Days Qty: 360 3RF Creon 24,000-76,000 -120,000 unit capsule,delayed release(DR/EC) 2 cap PO TID Qty: 180 6RF albuterol sulfate 90 mcg/actuation HFA aerosol inhaler 2 puff inhalation Q4H PRN (Reason: for wheezing) Qty: 8.5 4RF acetaminophen 325 mg tablet 650 mg PO Q6H PRN (Reason: for fever) 10 Days Qty: 80 3RF levothyroxine 75 mcg tablet 75 mcg PO DAILY Qty: 90 2RF metoclopramide HCl 5 mg tablet 5 mg PO TID Qty: 90 0RF cyclobenzaprine 10 mg tablet 10 mg PO TID melatonin 3 mg tablet 1 tab PO BEDTIME PRN (Reason: insomnia) metoprolol succinate 25 mg tablet extended release 24 hr 12.5 mg PO DAILY Qty: 14 0RF atorvastatin 80 mg tablet 80 mg PO DAILY Qty: 20 0RF aspirin [Adult Aspirin Regimen] 81 mg tablet,delayed release (DR/EC) 81 mg PO DAILY Qty: 30 0RF nitroglycerin 0.4 mg tablet, sublingual 0.4 mg sublingual Q5M PRN (Reason: chest pain) Qty: 14 0RF Rx Instructions: do not exceed 3 doses per episode potassium chloride 10 mEq tablet extended release 10 meq PO BID Qty: 30 0RF calcium acetate 667 mg tablet 667 mg PO TID Qty: 30 0RF mirtazapine 30 mg tablet 30 mg PO BEDTIME clonazepam 0.5 mg tablet 0.5 mg PO BID PRN (Reason: Anxiety) risperidone 1 mg tablet 1 mg PO BEDTIME sertraline 100 mg tablet 100 mg PO DAILY benztropine 1 mg tablet 1 mg PO .daily at bedtime docusate sodium [Colace] 100 mg capsule 100 mg PO DAILY riboflavin (vitamin B2) 100 mg tablet 200 mg PO BID Discontinued omeprazole 20 mg capsule,delayed release(DR/EC) 40 mg PO DAILY Qty: 180 0RF cholecalciferol (vitamin D3) 50 mcg (2,000 unit) capsule 50 mcg PO DAILY Discharge Orders: Discharge Order (Routine); Ordered 05/29/22 Ordered By: Edward Bang Diet: Advance to usual diet Activity on Discharge: As tolerated Stand Alone Forms: Patient Portal Discharge page Other Ambulatory Orders: Ammonia (Routine) Timeframe: 1 Week Facility: [facility] - Location: Laboratory Ordered By: Edward Bang Basic Metabolic Panel (Routine) Timeframe: 1 Week Facility: [facility] - Location: Laboratory Ordered By: Edward Bang Liver Panel (Routine) Timeframe: 1 Week Facility: [facility] - Location: Laboratory Ordered By: Edward Bang Magnesium (Routine) Timeframe: 1 Week Facility: [facility] - Location: Laboratory Ordered By: Edward Bang Care Plan Goals: Patient was admitted with episode of seizure, multiple electrolytic abnormalities : Started on aggressive electrolytic at repletion, also found to have determine D deficiency: Patient seems to be improved significantly with electrolytic repletion, in addition seen by Neurology seizure episode thought to be related to electrolytic abnormalities. No further seizure event in the hospital. Patient was strongly advised to avoid driving until seen by PCP. In addition patient is to follow-up with PCP outpatient for follow-up as well as need BMP and magnesium levels outpatient. Consider follow-up with Nephrology outpatient. patient has mild heart enzyme elevation, her heart recording as well as heart ultrasound seems to be fine: Further workup out patiently. Health Concerns: as above. Plan of Treatment: as above. Assessment: as above.
[2022-05-30 14:53] LABS: Calcium (PTHI) 8.1 mg/dL (8.6-10.4); PTHI 69 pg/mL (16-77)
[2022-06-01 17:48] LABS: Creatinine, Random Urine 36 mg/dL (20-275); Magnesium, Random Urine 311 mg/g creat (22-130)
== END 2022-05-29 14:15 | disposition home health service (06) | DRG 641 ==
LOC: HO.ED 13:15 → HO.EDOVER 15:41 → HO.IMC 15:41
PROVIDERS: Internal Medicine Nephrology; Nurse Practitioner Family; Admitting Provider Student in an Organized Health Care Education/Training Program; Emergency Provider Emergency Medicine Emergency Medical Services; PCP Physician Assistant; Visit Provider Internal Medicine
DX: E87.6 Hypokalemia (principal); I24.8 Other forms of acute ischemic heart disease; E83.42 Hypomagnesemia; F41.9 Anxiety disorder, unspecified; F32.A Depression, unspecified; M79.7 Fibromyalgia; E03.9 Hypothyroidism, unspecified; E83.51 Hypocalcemia; J41.0 Simple chronic bronchitis; K52.9 Noninfective gastroenteritis and colitis, unspecified; E78.70 Disorder of bile acid and cholesterol metabolism, unspecified; K31.84 Gastroparesis; E55.9 Vitamin D deficiency, unspecified; R56.9 Unspecified convulsions; F17.210 Nicotine dependence, cigarettes, uncomplicated; Z71.6 Tobacco abuse counseling; Z20.822 Contact with and (suspected) exposure to COVID-19; Z88.0 Allergy status to penicillin; Z79.890 Hormone replacement therapy; Z79.899 Other long term (current) drug therapy
CPT/HCPCS: 36415; 80048; 80053; 80076; 81001; 82140; 82306; 82550; 83036; 83735; 83930; 83935; 83970; 84133; 84300; 84484; 85025; 87086; 87635; 93005; 93306; 94640; 95816; 96365; 96367; 97161; 99285; J0611; J1650; J3475; P9047; Q9957

== ENCOUNTER → 2022-06-09 12:06 | Outpatient (BNVA) | payer OTHER, SELFPAY | PROVIDERS: PCP Physician Assistant; Visit Provider Nurse Practitioner | DX: K58.2 Mixed irritable bowel syndrome (principal); K31.84 Gastroparesis; K90.89 Other intestinal malabsorption | CPT/HCPCS: 99212 ==

== ENCOUNTER 2022-06-12 12:45 | Outpatient (REF) | payer OTHER, SELFPAY ==
[2022-06-13 03:04] LABS: Alanine Aminotransferase 23 U/L (0-31); Alkaline Phosphatase 108 U/L (39-117); Anion Gap 19 (12-20); Aspartate Amino Transferase 36 U/L (5-31); Bilirubin Direct < 0.2 mg/dL (0.0-0.5); Bilirubin Total 0.2 mg/dL (0.0-1.0); Blood Urea Nitrogen 9 mg/dL (9-16); Carbon Dioxide 20 mmol/L (22-29); Chloride 107 mmol/L (96-108); Estimated Glomerular Filt Rate > 60; Glucose Random 113 mg/dL (60-115); Potassium 5.2 mmol/L (3.3-5.1); Sodium 141 mmol/L (135-145)
[2022-06-13 08:22] LABS: Magnesium 0.8 mg/dL (1.6-2.6)
[2022-06-13 16:13] LABS: Calcium (PTHI) 9.4 mg/dL (8.6-10.4); PTHI 56 pg/mL (16-77)
== END 2022-06-12 12:46 | disposition home or self-care (01) ==
LOC: HO.HMGCLDS 12:45
PROVIDERS: PCP Physician Assistant; Visit Provider Physician Assistant
DX: E83.51 Hypocalcemia (principal); E83.42 Hypomagnesemia; E55.9 Vitamin D deficiency, unspecified; R74.8 Abnormal levels of other serum enzymes; E87.6 Hypokalemia; I24.8 Other forms of acute ischemic heart disease; R56.9 Unspecified convulsions
CPT/HCPCS: 36415; 80048; 80076; 83735; 83970

== ENCOUNTER 2022-06-14 13:37 | Outpatient (REF) | payer OTHER, SELFPAY ==
[2022-06-14 15:02] LABS: Anion Gap 14 (12-20); Blood Urea Nitrogen 12 mg/dL (9-16); Calcium 9.7 mg/dL (8.4-10.2); Carbon Dioxide 28 mmol/L (22-29); Chloride 105 mmol/L (96-108); Estimated Glomerular Filt Rate > 60; Glucose Random 127 mg/dL (60-115); Potassium 4.7 mmol/L (3.3-5.1); Sodium 142 mmol/L (135-145)
== END 2022-06-14 13:38 | disposition home or self-care (01) ==
LOC: HO.LAB 13:37
PROVIDERS: PCP Physician Assistant; Visit Provider Physician Assistant
DX: E83.42 Hypomagnesemia (principal)
CPT/HCPCS: 36415; 80048; 83735

== ENCOUNTER 2022-06-19 14:56 | Outpatient (REF) | payer OTHER, SELFPAY ==
[2022-06-19 16:43] LABS: Calcium 9.6 mg/dL (8.4-10.2)
== END 2022-06-19 14:57 | disposition home or self-care (01) ==
LOC: HO.HMGCLDS 14:56
PROVIDERS: PCP Physician Assistant; Visit Provider Physician Assistant
DX: E83.51 Hypocalcemia (principal); E83.42 Hypomagnesemia
CPT/HCPCS: 36415; 82310; 83735

== ENCOUNTER → 2022-06-27 14:01 | Outpatient (REF) | payer OTHER, SELFPAY ==
[2022-06-27 17:40] LABS: Magnesium 1.2 mg/dL (1.6-2.6)
== END ==
LOC: HO.CARD 14:01
PROVIDERS: PCP Physician Assistant; Visit Provider Physician Assistant
DX: E83.42 Hypomagnesemia (principal)
CPT/HCPCS: 36415; 83735

== ENCOUNTER 2023-05-02 13:50 | Outpatient (AMB) | payer OTHER, SELFPAY ==
[2023-05-02 13:51] VITALS: BP 120/65; PULSE 88; BMI 31.1
--- NOTE | 2023-05-02 13:51 | MHC.OFFVIS ---
Intake Vital Signs 05/02/23 13:51 Height 4 ft 11 in Weight 154 lb BMI 31.1 BP 120/65 Blood Pressure Location Rt brachial Position Sitting Pulse 88 Intake Visit Reasons: ? incisional hernia Intake Note: This patient presents for an assessment for question of incisional hernia. Patient c/o; reports bulge, reports hard abdomen, reports no changes in bowel habits, reports pain. Scrap Drop Operator Required: No Accompanied by: Self / Same As Patient Allergies amoxicillin Allergy (Mild, Verified 05/02/23 14:00) Constipation Medication List - Last Reconciled 05/02/23 by Kaz Peralta MD acetaminophen 650 mg (2 x 325 mg) PO Q6H PRN 10 days albuterol sulfate 2.5 mg (3 mL) inhalation Q6H PRN 30 days albuterol sulfate 90 mcg/actuation 2 puffs inhalation Q4H PRN aspirin (Adult Aspirin Regimen) 81 mg PO DAILY atorvastatin 80 mg PO DAILY 90 days benztropine 1 mg PO .daily at bedtime calcium acetate 667 mg PO TID 30 days cholestyramine (with sugar) 4 gram 4 grams PO BID clonazepam 0.5 mg PO BID PRN cyclobenzaprine 10 mg PO TID 30 days docusate sodium (Colace) 100 mg PO DAILY ergocalciferol (vitamin D2) (Vitamin D2) 1,250 mcg PO Rivas@1300 erythromycin 0.5 inches ophthalmic (eye) TID levothyroxine 75 mcg PO DAILY [id number] 24,000-76,000 -120,000 unit (Creon) 2 caps PO TID magnesium oxide 800 mg (2 x 400 mg (241.3 mg magnesium)) PO BID 30 days melatonin 1 tab PO BEDTIME PRN metoclopramide HCl 5 mg PO TID metoprolol succinate ER 12.5 mg (1/2 x 25 mg) PO DAILY 90 days mirtazapine 30 mg PO BEDTIME nitroglycerin 0.4 mg sublingual Q5M PRN omeprazole 20 mg PO BID 30 days potassium chloride ER 10 mEq PO DAILY 30 days riboflavin (vitamin B2) 200 mg PO BID risperidone 1 mg PO BEDTIME sertraline 100 mg PO DAILY HPI ? incisional hernia HPI Details 57 year female old here for a question of a incisional hernia. She did have repair of an epigastric hernia with Ventralex mesh in 2020. She states that for the past few days, she has been noticing some pain on the area. She also feels that she is a little swollen She denies any GI complaints She is a long time smoker and has a chronic cough. [facility] Medical History (Updated 05/02/23 @ 14:09 by Kaz Peralta MD) Incisional pain Back pain Arthritis GERD (gastroesophageal reflux disease) Anxiety Depression Asthma Epigastric hernia Smoker Gastroparesis HLD (hyperlipidemia) Hypothyroid Fibromyalgia COPD (chronic obstructive pulmonary disease) Surgical History History of esophagogastroduodenoscopy (EGD) Hx of colonoscopy History of hernia repair History of cholecystectomy Family History Father Stroke Mother No problems noted. Family/Other Diabetes Coronary artery disease Brother No problems noted. Sister No problems noted. Social History Household Members: Friend(s) Housing: House Do you presently have visiting nurse or other home services: Yes Alcohol intake: unknown Comment: medicated, see MAR Patient Tobacco Use Status: Current someday Tobacco user Tobacco use type: Cigarette Cigarette Packs Per Day: 0.5 Cigarettes Per Day: 10.0 Years Smoked: 20 e-Cigarette/Vaping Use: Never Used Substance Use Type: Marijuana service: No Current occupational status: disabled Review of Systems Const Denies chills and Denies fever(s) Card Denies chest pain, Denies dyspnea and Denies dyspnea on exertion Resp Reports cough (Chronic cough from smoking), Denies dyspnea and Denies dyspnea on exertion GI Denies hematochezia and Denies change in bowel habits Denies hematuria Musc Denies back pain and Denies limited range of motion Neuro Denies focal weakness and Denies convulsions Psych Denies depression and Denies mood swings Physical Exam Const General: comfortable and no acute distress Orientation/consciousness: patient oriented x3 Neck Neck: Yes no lymphadenopathy Resp Other: Occasional wheezing on both left and right Auscultation: clear to auscultation bilaterally Cardio Rhythm: regular rhythm GI Other: Unable to feel any reducible mass or any hernia with various Valsalva maneuvers Palpation (GI): Soft to palpation, nontender and no guarding Neuro General: patient oriented x3 Assessment & Plan Assessment & Plan (1) Incisional pain: Code(s): L76.82 - Other postprocedural complications of skin and subcutaneous tissue Plan: She had a previous repair of an epigastric hernia with mesh in 2020. She describes having some pain on the incision the past 3 days. She does state that she has been coughing. Examination at this time does not suggest any recurrent hernia. I do not feel any mass even with various Valsalva maneuvers I explained to her that her chronic coughing may also cause her abdominal wall pain. If she notices says any palpable mass, she is to come back to the office to be re-evaluated. Coding Level of Care Code New Pt Level 3 (16134) Diagnoses Incisional pain L76.82
== END 2023-05-02 14:13 | disposition home or self-care (01) ==
PROVIDERS: PCP Physician Assistant; Visit Provider Surgery
DX: L76.82 Other postprocedural complications of skin and subcutaneous tissue (principal)
CPT/HCPCS: 99213

== ENCOUNTER → 2023-05-02 13:50 | Outpatient (BNVA) | payer OTHER, SELFPAY | PROVIDERS: PCP Physician Assistant; Visit Provider Surgery | DX: L76.82 Other postprocedural complications of skin and subcutaneous tissue (principal) | CPT/HCPCS: 99212 ==

== ENCOUNTER 2023-10-15 08:32 | Emergency (ER) | payer OTHER, SELFPAY ==
--- NOTE | ~2023-10-15 | CT_ITS ---
EXAMINATION: CT ABDOMEN AND PELVIS WITHOUT CONTRAST CLINICAL INFORMATION: s/p fall, hematuria, diarrhea, abd pain COMPARISON: CT abdomen pelvis 07/30/2016 TECHNIQUE: Multidetector volumetric imaging was performed from the superior aspect of the liver through the pubic symphysis. Sagittal and coronal reformatted images were obtained on the technologist's workstation. This CT examination was performed using dose optimization techniques as appropriate, variously including the following: *Automated exposure control *Adjustment of mA and/or kV according to patient size (this includes techniques or standardized protocols for targeted exams where dose is matched to indication/reason for exam; i.e. extremities or head) *Use of iterative reconstruction technique DLP: 589 mGy-cm FINDINGS: LUNG BASES: The visualized lung bases are unremarkable. LIVER, GALLBLADDER, AND BILIARY TREE: The liver is normal in size, shape, and attenuation. No focal hepatic lesion or biliary ductal dilatation is present. Status post cholecystectomy. PANCREAS: Diffuse calcifications are seen throughout an atrophic pancreas. SPLEEN: Unremarkable. A benign-appearing hypoattenuating lesion seen in the spleen. ADRENAL GLANDS: Unremarkable. KIDNEYS AND URETERS: The kidneys are normal in size, shape, and attenuation. No hydronephrosis, hydroureter, or calculi seen. No perinephric stranding. BLADDER: The bladder is only partially filled with some symmetric wall thickening. No calculi. GASTROINTESTINAL TRACT: There is new mucosal thickening with some edematous changes involving the cecum and proximal ascending colon. Some mild streaky changes are seen in some pericolonic fat. The small and large bowel are otherwise unremarkable. The appendix is unremarkable. ABDOMINAL WALL: No significant hernia is appreciated. Tiny epigastric hernia is once again seen containing only fat. LYMPH NODES: No retroperitoneal lymphadenopathy. VASCULAR: Calcific atherosclerotic changes are present in the aorta and iliofemoral vessels. There is no evidence of an abdominal aortic aneurysm. Calcific atherosclerotic disease is present in the celiac and SMA. PELVIC VISCERA: Unremarkable. OSSEOUS STRUCTURES: Unremarkable. CT/CT abdomen pelvis wo IV con IMPRESSION: 1. New mucosal thickening with some edematous changes involving the cecum and proximal ascending colon. Findings are suggestive of colitis. 2. Other incidental findings as described above. Fleischner guidelines were followed.
[2023-10-15 08:40] VITALS: BP 101/58; BP 110/78; PULSE 82; RESP 16; TEMP 36.7; O2SAT 92; O2SAT 96; BMI 29.4
--- NOTE | 2023-10-15 08:47 | PC.NURSE ---
pt MATT from home, pt c/o all over back pain after she experiences a trip and fall one week ago where she landed on her back. she did not get evaluated. pt reports her pain was improving until she woke up this morning and felt like she could not get out of bed. pt rating her pain 8/10, denies incontinence or radiation of pain into her legs. pt also c/o abd discomfort localized around her umbilicus and intermittent diarrhea. pt was planning on seeking crisis today as she has been experiencing an uptake of her intrusive thoughts, she denies SI/SHB/HI. pt is pleasant and alert and oriented
--- NOTE | 2023-10-15 09:10 | ED_ITS ---
HPI - Back Pain/Injury General Chief Complaint: Back Pain/Injury Stated Complaint: BACK PAIN S/P FALL A WEEK AGO PER EMS Time Seen by Provider: 10/15/23 09:08 Source: patient Mode of arrival: ambulatory Limitations: no limitations History of Present Illness ED Provider: Nessa Wu PA-C HPI Narrative: 58-year-old female with a history of fibromyalgia, seizures, depression, anxiety, history of gastroparesis and irritable bowel syndrome who presents to the ER for evaluation of diffuse back pain after a fall 1 week ago. She also reports having diffuse abdominal pain and nonbloody diarrhea for the last 1 week as well. She states her entire spine hurts after she fell. Her fall was mechanical and she tripped and fell onto her back. She states she hit her head but did not lose consciousness. She is on anticoagulation. She denied any preceding chest pain shortness of breath or dizziness. She states initially her back pain got better but she woke up today and it was worse so she came to the ER for further evaluation. She also noticed that her urine was pink today. She has a history of kidney stones in the remote past. She denies any frequency, urgency, dysuria. No fever or chills. No vomiting but she has had some intermittent nausea. MD elicited complaint: back pain, back injury, fall and other (Abdominal pain and diarrhea) Pertinent past history: recent trauma and kidney stones Onset (ago): week(s) (1) Timing: progressively worsening Severity: moderate Quality: aching Location: lumbar spine and thoracic spine Radiation: abdomen Exacerbating factors: movement Relieving factors: immobilization Context: fall Associated symptoms: abdominal pain, hematuria, arthralgias, myalgias and other Work related injury: No Related Data Home Medications ?Medication ?Instructions ?Recorded ?Confirmed benztropine 1 mg tablet 1 mg PO .daily at bedtime 12/29/19 05/02/23 sertraline 100 mg tablet 100 mg PO DAILY 12/29/19 05/02/23 clonazepam 0.5 mg tablet 0.5 mg PO BID PRN Anxiety 04/12/20 05/02/23 mirtazapine 30 mg tablet 30 mg PO BEDTIME 04/12/20 05/02/23 risperidone 1 mg tablet 1 mg PO BEDTIME 04/12/20 05/02/23 riboflavin (vitamin B2) 100 mg 200 mg PO BID 04/22/20 05/02/23 tablet melatonin 3 mg tablet 1 tab PO BEDTIME PRN insomnia 05/25/22 05/02/23 Previous Rx's ?Medication ?Instructions ?Recorded albuterol sulfate 2.5 mg/3 mL 2.5 mg (3 mL) inhalation Q6H PRN 08/12/21 (0.083 %) solution for nebulization shortness of breath or wheezing 30 days #360 mL nitroglycerin 0.4 mg sublingual 0.4 mg sublingual Q5M PRN chest 05/24/22 tablet pain #14 tabs erythromycin 5 mg/gram (0.5 %) eye 0.5 inch ophthalmic (eye) TID #1 g 07/26/22 ointment levothyroxine 75 mcg tablet 75 mcg PO DAILY #90 tabs 02/27/23 atorvastatin 80 mg tablet 80 mg PO DAILY 90 days #90 tabs 03/05/23 metoprolol succinate 25 mg 12.5 mg (1/2 x 25 mg) PO DAILY 90 03/05/23 tablet,extended release 24 hr days #45 tabs acetaminophen 325 mg tablet 650 mg (2 x 325 mg) PO Q6H PRN for 04/19/23 fever 10 days #80 tabs aspirin 81 mg tablet,delayed 81 mg PO DAILY #90 tabs 05/10/23 release potassium chloride 10 mEq 10 meq PO DAILY 30 days #30 tabs 05/29/23 tablet,extended release ergocalciferol (vitamin D2) 1,250 1,250 mcg PO Rivas@1300 #7 caps 07/04/23 mcg (50,000 unit) capsule (Vitamin D2) cyclobenzaprine 10 mg tablet 10 mg PO TID 30 days #90 tabs 07/05/23 calcium acetate 667 mg tablet 667 mg PO TID 30 days #90 tabs 07/30/23 cholestyramine (with sugar) 4 gram 4 g PO BID #180 packets 08/20/23 powder for susp in a packet docusate sodium 100 mg capsule 100 mg PO DAILY #30 caps 08/20/23 (Colace) metoclopramide HCl 5 mg tablet 5 mg PO TID #90 tabs 08/20/23 omeprazole 20 mg capsule,delayed 20 mg PO BID 30 days #60 caps 08/20/23 release magnesium oxide 400 mg (241.3 mg 800 mg (2 x 400 mg (241.3 mg 08/27/23 magnesium) tablet magnesium)) PO BID 30 days #120 tabs albuterol sulfate 90 mcg/actuation 2 puff inhalation Q4H PRN for 09/18/23 aerosol inhaler wheezing #8.5 ea [id number] 2 cap PO TID #200 caps 09/24/23 24,000-76,000-120,000 unit capsule,delayed rel (Creon) cephalexin 500 mg capsule 500 mg PO BID 7 days #14 caps 10/15/23 cyclobenzaprine 10 mg tablet 10 mg PO TID PRN muscle spasm #10 10/15/23 tabs metronidazole 500 mg tablet 500 mg PO BID 7 days #14 tabs 10/15/23 naproxen 500 mg tablet 500 mg PO BID PRN pain #20 tabs 10/15/23 Allergies Allergy/AdvReac Type Severity Reaction Status Date / Time amoxicillin Allergy Mild Constipatio Verified 10/15/23 08:42 n Review of Systems 2 Review of Systems: Yes all other systems are reviewed and are negative FOR[facility]LY [facility] Past Medical History Medical History (Updated 10/15/23 @ 12:55 by KEERTHI Alexandre) Incisional pain Back pain Arthritis GERD (gastroesophageal reflux disease) Anxiety Depression Asthma Epigastric hernia Smoker Gastroparesis HLD (hyperlipidemia) Hypothyroid Fibromyalgia COPD (chronic obstructive pulmonary disease) Surgical History History of esophagogastroduodenoscopy (EGD) Hx of colonoscopy History of hernia repair History of cholecystectomy Family History Family History Father Stroke Mother No problems noted. Family/Other Diabetes Coronary artery disease Brother No problems noted. Sister No problems noted. Social History Social History Household Members: Friend(s) Housing: House Do you presently have visiting nurse or other home services: Yes Alcohol intake: unknown Comment: medicated, see MAR Patient Tobacco Use Status: Current someday Tobacco user Tobacco use type: Cigarette Cigarette Packs Per Day: 0.5 Cigarettes Per Day: 10.0 Years Smoked: 20 Smoked in Last 30 Days: Yes e-Cigarette/Vaping Use: Never Used Use of substances other than those prescribed or required for medical reasons: No Substance Use Type: Marijuana Advance Directives: No Advance Directives Information Provided: Yes Do you have a plan to hurt others: No Plan Patient : No service: No Current occupational status: disabled Physical Exam 2 Vital Signs: Vital Signs: Last Vital Signs Temp 98.0 F 10/15/23 13:13 Pulse 86 10/15/23 13:13 Resp 12 10/15/23 13:13 BP 122/83 10/15/23 13:13 Pulse Ox 91 L 10/15/23 13:13 O2 Del Method Room Air 10/15/23 13:13 BMI result Body Mass Index 29.4 Appearance: Alert. Oriented X3. No acute distress. Head: normocephalic, atraumatic. Eyes: Pupils equal, round and reactive to light. ENT: Pharynx normal. No tonsillar swelling or exudate. Neck: Normal inspection. Neck supple. CVS: Normal heart rate and rhythm. Pulses normal. Respiratory: No respiratory distress. Breath sounds normal. Abdomen: Soft and nontender. +BS x4 Skin: Skin warm and dry. Normal skin color. Normal skin turgor. No rashes. Extremities: No lower extremity edema. No joint swelling. Neuro/psych: Oriented X 3. No motor deficit. No sensory deficit. CN II-XII intact. Normal speech and cognition. Medications Administered Discontinued Medications Generic Name Dose Route Start Last Admin Trade Name Freq PRN Reason Stop Dose Admin Magnesium Sulfate 2 gm in 50 mls @ 25 mls/hr 10/15/23 10:16 10/15/23 13:21 Magnesium Sulfate/H2o IV 10/15/23 12:15 Infused ONCE ONE Infusion Ceftriaxone Sodium 1 gm/ 50 mls @ 100 mls/hr 10/15/23 10:41 10/15/23 13:21 Sodium Chloride IV 10/15/23 11:10 Infused ONCE ONE Infusion Medical Decision Making Medical Decision Making MDM Narrative: 4-year-old female presents to the ER for evaluation of diffuse back pain along with abdominal pain and diarrhea for the last 1 week. She is status post fall onto her back, reported initial improvement and then had worsening symptoms today along with new onset hematuria. Her vital signs are stable on arrival. She has some diffuse lower abdominal tenderness and tenderness over entire thoracic and lumbar spines. CT scan was done for further evaluation. This showed some colitis of the cecum and proximal ascending colon. No evidence of abscess. No osseous abnormalities. Her urinalysis was positive for infection. She is not febrile or tachycardic to suggest sepsis. No vomiting. She is nontoxic appearing. She was given 1 dose of IV Rocephin while she is here. Patient also found to be profoundly hypomagnesemic, upon review she has been hypomagnesemic every visit. She was given 2 g of IV magnesium while in the ER. She is not a drinker. Comfortable discharge home with oral antibiotics, pain control and outpatient follow-up. She was given strict return precautions stable for discharge home. Differential Diagnosis Differential Diagnoses: The differential diagnosis associated with the presentation includes Compression fracture of the lumbar or thoracic spine, retroperitoneal bleed, UTI, pyelonephritis, splenic injury, colitis, diverticulitis, appendicitis Admission/Observation Consideration of admission/observation: Escalation of care including admission/observation considered Lab Data MDM Lab Attestation statement: I reviewed the patient's lab results. Mild leukocytosis, hypomagnesemia, chronic 10/15/23 09:54 10/15/23 09:54 Labs: Lab Results 10/15/23 10/15/23 Range/Units 09:54 10:20 WBC 12.8 H (4.8-10.8) X10*3/uL RBC 4.46 (4.20-5.50) X10*6/uL Hgb 13.2 (12.0-16.0) g/dl Hct 40.1 (37.0-47.0) % MCV 89.9 (80.0-98.0) fL MCH 29.6 (27.0-33.0) pg MCHC 32.9 (31.0-35.0) g/dl RDW 13.6 (11.0-16.0) % Plt Count 212 (160-400) X10*3/uL MPV 11.6 (9.4-12.3) fL Immature Gran % (Auto) 0.4 (0.0-0.4) % Neut % (Auto) 77.3 H (45-73) % Lymph % (Auto) 12.2 L (20-40) % [place] % (Auto) 8.3 (2-11) % Eos % (Auto) 1.4 (0-4) % Baso % (Auto) 0.4 (0-2) % Lymph # (Auto) 1.6 (1.2-4.9) X10*3/uL [place] # (Auto) 1.1 (0.1-1.2) X10*3/uL Eos # (Auto) 0.2 (0.0-0.4) X10*3/uL Baso # (Auto) 0.1 (0.0-0.2) X10*3/uL Abs Immat Gran (auto) 0.05 H (0.00-0.03) X10*3/uL Absolute Neuts (auto) 9.9 H (2.0-8.3) x10*3/uL Absolute Nucleated RBC 0.000 (0.0-0.012) X10*3/uL Nucleated RBC % (auto) 0.0 (0.0-0.2) /100WBC Sodium 142 (135-145) mmol/L Potassium 3.5 (3.3-5.1) mmol/L Chloride 105 (96-108) mmol/L Carbon Dioxide 27 (22-29) mmol/L Anion Gap 14 (12-20) BUN 9 (9-16) mg/dL Creatinine 0.67 (0.5-1.4) mg/dL Estim Creat Clear Calc 76.9 Estimated GFR > 60 Random Glucose 124 H (60-115) mg/dL Calcium 9.7 (8.4-10.2) mg/dL Magnesium 1.1 L* (1.6-2.6) mg/dL Total Bilirubin 0.3 (0.0-1.0) mg/dL Direct Bilirubin 0.1 (0.0-0.5) mg/dL AST 24 (5-31) U/L ALT 24 (0-31) U/L Alkaline Phosphatase 117 (39-117) U/L Total Protein 7.0 (6.5-8.0) g/dL Albumin 3.9 (3.5-5.0) g/dL Urine Color Yellow Urine Appearance Clear Urine pH 6.5 (5.0-9.0) Ur Specific [place] 1.015 (1.005-1.025) Urine Protein Trace (Neg-Trace) mg/dL Urine Glucose (UA) Negative (Negative) mg/dL Urine Ketones Negative (Negative) mg/dL Urine Blood Negative (Negative) Urine Nitrite Negative (Negative) Ur Leukocyte Esterase Large (3+) H (Negative) Urine RBC 0-2 (0-2) /HPF Urine WBC 21-50 H (0-5) /HPF Ur Squamous Epith Cells 0-2 (0-2) /HPF Urine Bacteria None Seen (None Seen) Hyaline Casts 0-2 (0-2) /LPF Independent Interpretation I performed an independent interpretation of an: CT Scan Interpretation: Cecal thickening without any obvious inflammation of the appendix, no evidence dilated loops of bowel to suggest obstruction, no visible kidney stones, no appreciated perinephric stranding. Agree with radiology read Radiology Impression Discussion of test interpretation with radiology: I have reviewed the radiologist's reading. Radiologist Impression: CT/CT abdomen pelvis wo IV con IMPRESSION: 1. New mucosal thickening with some edematous changes involving the cecum and proximal ascending colon. Findings are suggestive of colitis. 2. Other incidental findings as described above. Independent Historian Clinical information obtained from an independent historian. History obtained from or confirmed by: EMS External Record Review External record reviewed: Outpatient record, Prior outpatient labs and Prior outpatient radiology Prescription Management I considered prescription management with: Pain Medication and Antibiotic Chronic Conditions Patient?s care impacted by: Other (fibromyalgia) Critical Care Time Critical Care Time Critical Care Time: No Discharge Plan Discharge Clinical Impression: Acute lower UTI, Colitis, Hypomagnesemia Patient Disposition: Home, Self-Care Instructions: Colitis (ED), Urinary Tract Infection in Older Adults (ED) Additional Instructions: Your CT scan today showed some colitis, which is inflammation of the wall of the colon. There is no evidence of abscess or deeper infection. Your urinalysis was also positive for UTI. Take the prescribed antibiotics as directed, complete the entire course and do not miss any doses. Start taking them this evening before bed. You were given 1st dose in the ER today. Stick to a bland diet where not feeling well. Rest and drink plenty of fluids. The CT scan did not show any evidence of injuries to her back. Her pain is most likely muscular. Take the prescribed muscle relaxers as needed for this. Use ice and/or heat to the area whichever feels better. You were found to have a very low magnesium level. Your given IV magnesium while here in the ER. Your magnesium level has been low on every visit. Recommend starting an oral magnesium supplement. This can be found [id number]. Recommend following up with the primary care to ensure improvement in this. If you develop new or worsening symptoms call 911 or come back to the ER for further evaluation. Prescriptions: New cephalexin 500 mg capsule 500 mg PO BID 7 Days Qty: 14 0RF metronidazole 500 mg tablet 500 mg PO BID 7 Days Qty: 14 0RF cyclobenzaprine 10 mg tablet 10 mg PO TID PRN (Reason: muscle spasm) Qty: 10 0RF naproxen 500 mg tablet 500 mg PO BID PRN (Reason: pain) Qty: 20 0RF No Action albuterol sulfate 2.5 mg /3 mL (0.083 %) solution for nebulization 2.5 mg inhalation Q6H PRN (Reason: shortness of breath or wheezing) 30 Days Qty: 360 3RF levothyroxine 75 mcg tablet 75 mcg PO DAILY Qty: 90 2RF atorvastatin 80 mg tablet 80 mg PO DAILY 90 Days Qty: 90 2RF metoprolol succinate 25 mg tablet extended release 24 hr 12.5 mg PO DAILY 90 Days Qty: 45 2RF acetaminophen 325 mg tablet 650 mg PO Q6H PRN (Reason: for fever) 10 Days Qty: 80 0RF aspirin 81 mg tablet,delayed release (DR/EC) 81 mg PO DAILY Qty: 90 1RF potassium chloride 10 mEq tablet extended release 10 meq PO DAILY 30 Days Qty: 30 3RF ergocalciferol (vitamin D2) [Vitamin D2] 1,250 mcg (50,000 unit) capsule 1,250 mcg PO Rivas@1300 Qty: 7 3RF cyclobenzaprine 10 mg tablet 10 mg PO TID 30 Days Qty: 90 2RF calcium acetate 667 mg tablet 667 mg PO TID 30 Days Qty: 90 1RF cholestyramine (with sugar) 4 gram powder in packet 4 g PO BID Qty: 180 2RF docusate sodium [Colace] 100 mg capsule 100 mg PO DAILY Qty: 30 3RF metoclopramide HCl 5 mg tablet 5 mg PO TID Qty: 90 6RF omeprazole 20 mg capsule,delayed release(DR/EC) 20 mg PO BID 30 Days Qty: 60 6RF magnesium oxide 400 mg (241.3 mg magnesium) tablet 800 mg PO BID 30 Days Qty: 120 1RF albuterol sulfate 90 mcg/actuation HFA aerosol inhaler 2 puff inhalation Q4H PRN (Reason: for wheezing) Qty: 8.5 3RF Creon 24,000-76,000 -120,000 unit capsule,delayed release(DR/EC) 2 cap PO TID Qty: 200 0RF melatonin 3 mg tablet 1 tab PO BEDTIME PRN (Reason: insomnia) nitroglycerin 0.4 mg tablet, sublingual 0.4 mg sublingual Q5M PRN (Reason: chest pain) Qty: 14 0RF Rx Instructions: do not exceed 3 doses per episode mirtazapine 30 mg tablet 30 mg PO BEDTIME clonazepam 0.5 mg tablet 0.5 mg PO BID PRN (Reason: Anxiety) risperidone 1 mg tablet 1 mg PO BEDTIME sertraline 100 mg tablet 100 mg PO DAILY benztropine 1 mg tablet 1 mg PO .daily at bedtime erythromycin 5 mg/gram (0.5 %) ointment 0.5 inch ophthalmic (eye) TID Qty: 1 0RF riboflavin (vitamin B2) 100 mg tablet 200 mg PO BID Interventions: ED Discharge Assessment Last Done: 10/15/23 13:13 Discharge Date/Time: 10/15/23 13:21 Print Language: Czech
[2023-10-15 09:58] LABS: MANUAL DIFF FLAG NO
[2023-10-15 10:04] VITALS: BP 129/63; PULSE 80; RESP 14; TEMP 36.8; O2SAT 92
[2023-10-15 10:05] LABS: Basophils Absolute Auto 0.1 X10*3/uL (0.0-0.2); Basophils Percent Auto 0.4 % (0-2); Eosinophils Absolute Auto 0.2 X10*3/uL (0.0-0.4); Eosinophils Percent Auto 1.4 % (0-4); Hematocrit 40.1 % (37.0-47.0); Hemoglobin 13.2 g/dl (12.0-16.0); Imm Gran Abs Auto 0.05 X10*3/uL (0.00-0.03); Imm Gran Pct Auto 0.4 % (0.0-0.4); Lymphocytes Absolute Auto 1.6 X10*3/uL (1.2-4.9); Lymphocytes Percent Auto 12.2 % (20-40); Mean Corpuscular HGB Conc 32.9 g/dl (31.0-35.0); Mean Corpuscular Hemoglobin 29.6 pg (27.0-33.0); Mean Corpuscular Volume 89.9 fL (80.0-98.0); Mean Platelet Volume 11.6 fL (9.4-12.3); Monocytes Absolute Auto 1.1 X10*3/uL (0.1-1.2); Monocytes Percent Auto 8.3 % (2-11); Neutrophils Absolute Auto 9.9 x10*3/uL (2.0-8.3); Neutrophils Percent Auto 77.3 % (45-73); Platelet Count 212 X10*3/uL (160-400); Red Blood Count 4.46 X10*6/uL (4.20-5.50); Red Cell Distribution Width 13.6 % (11.0-16.0); White Blood Count 12.8 X10*3/uL (4.8-10.8)
[2023-10-15 10:15] LABS: Alanine Aminotransferase 24 U/L (0-31); Albumin Level 3.9 g/dL (3.5-5.0); Alkaline Phosphatase 117 U/L (39-117); Anion Gap 14 (12-20); Aspartate Amino Transferase 24 U/L (5-31); Bilirubin Direct 0.1 mg/dL (0.0-0.5); Bilirubin Total 0.3 mg/dL (0.0-1.0); Blood Urea Nitrogen 9 mg/dL (9-16); Calcium 9.7 mg/dL (8.4-10.2); Carbon Dioxide 27 mmol/L (22-29); Chloride 105 mmol/L (96-108); Creatinine Clr Calc Pharmacy 76.9; Estimated Glomerular Filt Rate > 60; Glucose Random 124 mg/dL (60-115); Magnesium 1.1 mg/dL (1.6-2.6); Potassium 3.5 mmol/L (3.3-5.1); Sodium 142 mmol/L (135-145)
[2023-10-15 10:26] LABS: Appearance Urine Clear; Color Urine Yellow; Glucose Urine UA Negative (Negative); Leukocyte Esterase Urine Large (3+) (Negative); Nitrite Urine Negative (Negative); PH 6.5 (5.0-9.0); Specific Gravity - Urine 1.015 (1.005-1.025); UMIC TRIGGER UACC YES; Urine Blood Negative (Negative); Urine Ketones Negative (Negative); Urine Protein Trace mg/dL (Neg-Trace)
[2023-10-15 10:36] LABS: Bacteria Urine None Seen (None Seen); Hyaline Casts Urine 0-2 /LPF (0-2); RBC Urine 0-2 /HPF (0-2); Squamous Epithelial Cell Urine 0-2 /HPF (0-2); UACC Culture Trigger YES; WBC Urine 21-50 /HPF (0-5)
[2023-10-15] MEDS: Magnesium Sulfate/H2O 2 GM/50 ML PIGGYBACK IV (10:40)
--- NOTE | 2023-10-15 10:43 | PC.NURSE ---
abx hung late d/t magnesium infusing for 2 hours
--- NOTE | 2023-10-15 12:00 | PC.NURSE ---
pts aunt - Ngozi Bravocesar
[2023-10-15] MEDS: cefTRIAXone sodium 1 GM in 0.9 % Sodium Chloride 50 ML IV (12:32)
[2023-10-15 12:42] VITALS: BP 122/83; PULSE 86; RESP 12; TEMP 36.7; O2SAT 91
[2023-10-15 13:13] VITALS: BP 122/83; PULSE 86; RESP 12; TEMP 36.7; O2SAT 91
== END 2023-10-15 13:21 | disposition home or self-care (01) ==
PROVIDERS: Physician Assistant; Emergency Provider Emergency Medicine; PCP Physician Assistant
DX: N39.0 Urinary tract infection, site not specified (principal); K52.9 Noninfective gastroenteritis and colitis, unspecified; E83.42 Hypomagnesemia; M54.50 Low back pain, unspecified; R11.0 Nausea; Z79.899 Other long term (current) drug therapy; Z79.01 Long term (current) use of anticoagulants
CPT/HCPCS: 36415; 74176; 80048; 80076; 81001; 83735; 85025; 87086; 96365; 96366; 96375; 99284; J0696; J3475

== ENCOUNTER 2024-05-15 09:01 | Outpatient (AMB) | payer OTHER, SELFPAY ==
[2024-05-15 09:08] VITALS: BP 122/64; PULSE 73; O2SAT 91
--- NOTE | 2024-05-15 09:08 | A.OFFPC_ITS ---
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 Required: No Accompanied by: Self / Same As Patient Allergies amoxicillin Allergy (Mild, Verified 05/15/24 09:16) Constipation Medication List - Last Reconciled 05/15/24 by Jp Monsivais PA-C acetaminophen 650 mg (2 x 325 mg) PO Q6H PRN 10 days albuterol sulfate 2.5 mg (3 mL) inhalation Q6H PRN 30 days albuterol sulfate 90 mcg/actuation 2 puffs inhalation Q4H PRN aspirin 81 mg PO DAILY atorvastatin 80 mg PO DAILY 90 days benztropine 1 mg PO .daily at bedtime calcium acetate(phosphat bind) 667 mg PO TID 90 days cholestyramine (with sugar) 4 gram 4 grams PO BID clonazepam 0.5 mg PO BID PRN cyclobenzaprine 10 mg PO TID 30 days docusate sodium (Colace) 100 mg PO DAILY ergocalciferol (vitamin D2) (Vitamin D2) 1,250 mcg PO Rivas@1300 erythromycin 0.5 inches ophthalmic (eye) TID levothyroxine 75 mcg PO DAILY mppsmf-fsrdsfld-evborvd 24,000-76,000 -120,000 unit (Creon) 2 caps PO TID magnesium oxide 800 mg (2 x 400 mg (241.3 mg magnesium)) PO BID 30 days melatonin 1 tab PO BEDTIME PRN metoclopramide HCl 5 mg PO TID metoprolol succinate ER 12.5 mg (1/2 x 25 mg) PO DAILY 90 days mirtazapine 30 mg PO BEDTIME nitroglycerin 0.4 mg sublingual Q5M PRN omeprazole 20 mg PO BID potassium chloride ER 10 mEq PO DAILY 30 days risperidone 0.5 mg PO DAILY sertraline 100 mg PO DAILY Tobacco use date assessed: 05/15/24 Dental Screening Dental Screen Date: 05/15/24 Did you have a dental visit in the last 12 months?: No Did you have a dental problem in the last 6 months where you did not have access to dental care?: No Was dental information given to patient?: No HPI annual exam HPI Details Patient is a 58 year female being evaluated today via telephone only.? Patient has a past medical history significant for hypothyroidism, bowel syndrome bile acid malabsorption syndrome. .. IBS- D:? Has started on cholestyramine and metoclopramide which has helped reduce her frequency of bowel movements. 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 .. ? Hypothyroidism:? Has yet to get TSH evaluated continues on levothyroxine 75 mcg .. Hypomagnesemia: Has a history of low magnesium likely secondary to malabsorption GI issue. Continue on magnesium supplementation .. Cervical spine pain:? Has somewhat resolved with the use of cyclobenzaprine and extra-strength Tylenol. Still has bad right shoulder pain. Will send for x- rays of cervical spine and right shoulder. .. MDD: Is seeing a therapist and information management manager (Dr Gabbie Greenberg) CHD- She feels st able on her current doses of mental health medications. Vaccines: Up-to-date with COVID vaccine, tetanus vaccine, declines flu , Need PCV-20 Colorectal cancer screening: Need for repeat colonoscopy [facility] Medical History (Updated 05/15/24 @ 09:44 by Jp Monsivais PA-C) HLD (hyperlipidemia) COPD (chronic obstructive pulmonary disease) Incisional pain Back pain Arthritis GERD (gastroesophageal reflux disease) Anxiety Depression Asthma Epigastric hernia Smoker Gastroparesis Hypothyroid Fibromyalgia Surgical History History of esophagogastroduodenoscopy (EGD) Hx of colonoscopy History of hernia repair History of cholecystectomy Family History Father Stroke Mother No problems noted. Family/Other Diabetes Coronary artery disease Brother No problems noted. Sister No problems noted. Social History (Updated 05/15/24 @ 09:22 by Jp Monsivais PA-C) Household Members: Friend(s) Housing: House Do you presently have visiting nurse or other home services: Yes Alcohol intake: unknown Comment: medicated, see MAR Patient Tobacco Use Status: Current everyday Tobacco user Tobacco use type: Cigarette Cigarette Packs Per Day: 0.5 Cigarettes Per Day: 10.0 Years Smoked: 20 e-Cigarette/Vaping Use: Never Used Substance Use Type: Marijuana service: No Current occupational status: disabled Cognitive needs: No Hearing needs: No Vision needs: No Questionnaire PHQ-9 Over the last 2 weeks, how often have you been bothered by any of the following problems? 1. Little interest or pleasure in doing things: several days 2. Feeling down, depressed, or hopeless: several days 3. Trouble falling or staying asleep, or sleeping too much: more than half the days 4. Feeling tired or having little energy: more than half the days 5. Poor appetite or overeating: not at all 6. Feeling bad about yourself - or that you are a failure or have let yourself or your family down: several days 7. Trouble concentrating on things, such as reading the newspaper or watching television: several days 8. Moving or speaking so slowly that other people could have noticed. Or the opposite - being so fidgety or restless that you have been moving around a lot more than usual: several days 9. Thoughts that you would be better off or of hurting yourself in some way: several days Total score: 10 Source: Developed by Drs. Abdirahman Lerner, Matilde Uriarte, Murphy Paez and colleagues, with an educational simone from [employer]. Thrive Questionnaire Date Thrive assessed: 05/15/24 I am a: Patient What is your living situation today?: I have a steady place to live Within the past 12 months, did the food you bought not last and you didn't have the money to get more?: Sometimes True Within the past 12 months, did you worry whether your food would run out before you got money to buy more?: Sometimes True Do you have trouble paying for medicines?: No Do you have trouble getting transportation to medical appointments?: No Do you have trouble paying your heating and electricity bill?: Yes Do you have trouble taking care of your child, family member or friend?: No Do you have trouble with day-to-day activities such as bathing, preparing meals, shopping, managing finances, etc.?: Yes Are you currently unemployed and looking for a job?: No Are you interested in more education?: No Please select the resources that you would like help with: Transportation and Utilities Currently or been in a relationship where the following occur: I choose not to answer THRIVE Score: 3 AUDIT C Alcohol Use Questionnaire (AUDIT-C) 1. How often do you have a drink containing alcohol?: Never 3. How often do you have six or more drinks on one occasion?: Never Total Score: 0 YASH-7 AMB Questionnaire YASH-7 Date YASH - 7 assessed: 05/15/24 Feeling nervous, anxious, or on edge: 1 = Several days Not being able to stop or control worryin = Several days Worrying too much about different things: 1 = Several days Trouble relaxin = Several days Being so restless that it is hard to sit still: 1 = Several days Becoming easily annoyed or irritable: 1 = Several days Feeling afraid as if something awful might happen: 2 = More than half the days Total YASH-7 score (0-4 normal; 5-9 mild; 10-14 moderate; 15-21 severe): 8 Source: Developed by Drs. Abdirahman Lerner, Matilde Uriarte, Murphy Paez and colleagues, with an educational simone from [employer]. Review of Systems Const Denies body aches, Denies chills, Denies excessive sweating, Denies fatigue, Denies fever(s) and Denies headache(s) Eyes Denies blurry vision ENT Denies dysphagia, Denies vertigo, Denies dizziness, Denies headache(s), Denies hearing loss and Denies tinnitus Card Denies chest pain, Denies chest pain with activity, Denies syncope, Denies irregular heart rhythm and Denies dyspnea Resp Denies chest congestion, Denies cough, Denies hemoptysis, Denies dyspnea and Denies wheezing GI Denies abdominal pain, Denies melena, Denies hematochezia, Denies coffee ground emesis, Denies dysphagia, Denies diarrhea, Denies nausea and Denies vomiting Denies urinary frequency, Denies dysuria, Denies urinary hesitancy and Denies urinary urgency Musc Denies arthralgias, Denies limited range of motion, Denies muscle cramps and Denies muscle weakness Skin/Breast Denies rash and Denies skin ulcer Neuro Denies Abnormal speech present, Denies confusion, Denies vertigo, Denies dizziness, Denies syncope, Denies headache(s), Denies memory loss and Denies seizure-like activity Psych Denies anxiety, Denies confusion, Denies depression, Denies memory loss, Denies panic attacks and Denies paranoia Endo Denies excessive sweating, Denies fatigue, Denies flushing, Denies polydipsia and Denies polyuria Aller/Immun Denies wheezing Physical exam (Primary Care) Vital Signs: Last Vital Signs Pulse 73 05/15/24 09:08 BP 122/64 05/15/24 09:08 Pulse Ox 91 L 05/15/24 09:08 Oxygen Delivery Method Room Air 05/15/24 09:08 BMI result Body Mass Index 30.0 Tobacco/Smoking Status: Tobacco use Status Tobacco use date assessed 05/15/24 05/15/24 09:09 Patient Tobacco Use Status Current someday Tobacco 05/15/24 09:09 Tobacco use type Cigarette 05/15/24 09:09 e-Cigarette/Vaping Use Never Used 05/15/24 09:09 PHQ-9: PHQ-9 Score PHQ-9: Total score 10 05/15/24 09:09 Thrive Assessment: Date of Thrive Assessment Date Thrive assessed 05/15/24 05/15/24 09:09 Currently or been in a relationship where the following occur: I choose not to answer Const General: cooperative, comfortable, no acute distress, alert and awake; No confusion Orientation/consciousness: oriented to person, oriented to place, patient oriented x3 and No confusion HENMT Head: Yes normocephalic Ears: external ears normal and TM's normal bilaterally Face and sinus: No sinus tenderness Mouth: Normal oral and palatal mucosa present and tongue normal Teeth and gingiva: dentition normal and gingiva normal Throat: Yes posterior oropharynx normal, Yes tonsils normal and Yes uvula midline Eyes Conjunctivae: conjunctivae normal Sclerae: sclerae normal Pupils: Equal, round and reactive pupils present EOM: EOMs intact bilaterally Direct Ophthalmoscopy: No no photophobia Neck Neck: Yes no lymphadenopathy, No tender and Yes no JVD Thyroid: Thyroid normal Carotids: no bruits Chest Chest palpation & inspection: no tenderness Resp Effort & Inspection: normal respiratory effort, no audible wheezes, not labored and no stridor Auscultation: no crackles, no rales, no rhonchi and no wheezes Cardio Jugular venous distension: no JVD Rate: regular rate, not bradycardic and not tachycardic Rhythm: regular rhythm Bruits: no carotid bruits Peripheral pulses: Peripheral pulses 2+ throughout GI Inspection: Yes normal to inspection, No abdominal wall ecchymosis and No visible herniation Palpation (GI): Soft to palpation, nontender, no guarding, not rigid and No hepatosplenomegaly present Auscultation: normoactive bowel sounds General: Yes no CVA tenderness Back/Spine/Pelvis Back: no CVA tenderness and No back tenderness Cervical Spine: cervical ROM normal Thoracic/Lumbar Spine: thoracic and lumbar spine normal to inspection, straight leg raise negative bilaterally, No thoraco-lumbar ROM limited and No lumbar spinal tenderness Skin Lesions: no lesions Rashes: no rashes Wounds: no wounds Neuro General: oriented to person, oriented to place, patient oriented x3, CN's II-XI intact bilaterally and No confusion Cranial nerves: Yes Equal, round and reactive pupils present and Yes Normal accommodation reflex present Cognition (Neuro): normal cognition Speech: No Abnormal speech present Gait exam (Neuro): Normal gait present Motor exam (neuro): 5/5 motor strength present throughout Extrem Right upper extremity: full ROM; no cyanosis Left upper extremity: full ROM; no cyanosis Right lower extremity: no edema Left lower extremity: no edema Psych Appearance: grossly normal Mental Status: mental status grossly normal Affect: normal affect Attitude: cooperative Thought process: Normal thought process present Coding Level of Care Code Est Pt Prev Care 40-64y(80948) Diagnoses Annual physical exam Z00.00 MDD (major depressive disorder), recurrent episode, moderate F33.1 YASH (generalized anxiety disorder) F41.1 Hypomagnesemia E83.42 Hypothyroidism, unspecified type E03.9 Hypothyroidism type: unspecified Vitamin D deficiency E55.9 Simple chronic bronchitis J41.0 COPD type: chronic bronchitis Chronic bronchitis type: simple Fibromyalgia M79.7 Mixed hyperlipidemia E78.2 Hyperlipidemia type: mixed hyperlipidemia Colon cancer screening Z12.11 Assessment & Plan Assessment & Plan (1) Annual physical exam: Code(s): Z00.00 - Encounter for general adult medical examination without abnormal findings Category: Medical Plan: As per HPI (2) MDD (major depressive disorder), recurrent episode, moderate: Code(s): F33.1 - Major depressive disorder, recurrent, moderate Category: Medical Plan: Patient now followed by a psychiatrist whom is managing her mental health medications. (3) YASH (generalized anxiety disorder): Code(s): F41.1 - Generalized anxiety disorder Category: Medical Plan: As per HPI, patient now followed by psychiatrist and a mental health therapist whom are managing her mental health medications. (4) Hypomagnesemia: Code(s): E83.42 - Hypomagnesemia Category: Medical Plan: Has a history of hypomagnesemia, will recheck magnesium (5) Hypothyroidism: Code(s): E03.9 - Hypothyroidism, unspecified Category: Medical Qualifiers: Hypothyroidism type: unspecified Qualified Code(s): E03.9 - Hypothyroidism, unspecified Plan: Patient continues on levothyroxine 75 mcg. Will recheck TSH to assure normal make any adjustments in levothyroxine dosing appropriate. (6) Vitamin D deficiency: Code(s): E55.9 - Vitamin D deficiency, unspecified Category: Medical Plan: Will recheck vitamin-D level (7) COPD (chronic obstructive pulmonary disease): Code(s): J44.9 - Chronic obstructive pulmonary disease, unspecified Category: Medical Qualifiers: COPD type: chronic bronchitis Chronic bronchitis type: simple Qualified Code(s): J41.0 - Simple chronic bronchitis Plan: Patient does wheezing on physical exam today. Does have a mild junky cough. She would likely benefit from a maintenance inhaler thus will try Advair. Advised to completely stopped smoking. (8) Fibromyalgia: Code(s): M79.7 - Fibromyalgia Category: Medical Plan: Patient does have from fibromyalgia and reports that cyclobenzaprine is helpful for her widespread back pain. (9) HLD (hyperlipidemia): Code(s): E78.5 - Hyperlipidemia, unspecified Category: Medical Qualifiers: Hyperlipidemia type: mixed hyperlipidemia Qualified Code(s): E78.2 - Mixed hyperlipidemia Plan: Will recheck fasting lipid panel. She continues on high dose statin therapy. Goal LDL to be below 100 optimally below 70 (10) Colon cancer screening: Code(s): Z12.11 - Encounter for screening for malignant neoplasm of colon Category: Medical Plan: Patient in need for repeat colonoscopy, done in 2019 need to 5 year repeat Orders: Orders Vitamin D 25-OH Total Today E55.9 - Vitamin D deficiency, unspecified Magnesium Today E83.42 - Hypomagnesemia TSH reflex Free T4 Today E03.9 - Hypothyroidism, unspecified Complete Blood Count no Diff Today J41.0 - Simple chronic bronchitis Comprehensive [place]. Panel Fast Today Z13.1 - Encounter for screening for diabetes mellitus Referrals Gastroenterology Referral Z12.11 - Encounter for screening for malignant neoplasm of colon Medications: New fluticasone propion-salmeterol 115-21 mcg/actuation (Advair HFA) 2 puffs inhalation BID 30 days 12 grams 3RF J41.0 - Simple chronic bronchitis Refilled cyclobenzaprine 10 mg PO TID 30 days 90 tabs 1RF M79.7 - Fibromyalgia Patient Instructions: Goal:: LDL below 100, stopped smoking Barriers: Adherence to physical activity and healthy eating habits
== END 2024-05-15 09:33 | disposition home or self-care (01) ==
PROVIDERS: PCP Physician Assistant; Visit Provider Physician Assistant
DX: Z00.00 Encounter for general adult medical examination without abnormal findings (principal); F33.1 Major depressive disorder, recurrent, moderate; J41.0 Simple chronic bronchitis; F41.1 Generalized anxiety disorder; E83.42 Hypomagnesemia; E03.9 Hypothyroidism, unspecified; E55.9 Vitamin D deficiency, unspecified; M79.7 Fibromyalgia; E78.2 Mixed hyperlipidemia; Z12.11 Encounter for screening for malignant neoplasm of colon

== ENCOUNTER → 2024-05-15 09:01 | Outpatient (BNVA) | payer OTHER, SELFPAY | PROVIDERS: PCP Physician Assistant; Visit Provider Physician Assistant | DX: Z00.00 Encounter for general adult medical examination without abnormal findings (principal); F33.1 Major depressive disorder, recurrent, moderate; F41.1 Generalized anxiety disorder; E83.42 Hypomagnesemia; E03.9 Hypothyroidism, unspecified; J41.0 Simple chronic bronchitis; M79.7 Fibromyalgia; E78.2 Mixed hyperlipidemia | CPT/HCPCS: 99396 ==

== ENCOUNTER 2024-09-11 14:42 | Outpatient (AMB) | payer OTHER, SELFPAY ==
--- NOTE | 2024-09-11 14:45 | MHC.PC.OV ---
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 Patient has a past medical history significant for hypothyroidism, bowel syndrome bile acid malabsorption syndrome. Concern--> has noted right wrist swelling and a bit of erythema. No trauma or break in the integrity of the skin around the right wrist.. She has been taking Tylenol with minimal relief of her pain .. Tobacco dependency/COPD: Patient continues to smoke about a half pack of cigarettes per day. She denies any compromising her breathing as of late. She does have access to an albuterol inhaler and Symbicort. We did discuss going to the lung cancer screening program though she declines at this time. She is due for a pneumonia vaccine though again declines pneumonia vaccine today. .. IBS- D:? Has started on cholestyramine and metoclopramide which has helped reduce her frequency of bowel movements. 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 .. ? Hypothyroidism:? Has yet to get TSH evaluated continues on levothyroxine 75 mcg .. Hypomagnesemia: Has a history of low magnesium likely secondary to malabsorption GI issue. Continue on magnesium supplementation .. Cervical spine pain:? Has somewhat resolved with the use of cyclobenzaprine and extra-strength Tylenol. Still has bad right shoulder pain. Will send for x-rays of cervical spine and right shoulder. .. MDD: Is seeing a therapist and stereoplotter operator (Dr Gabbie Greenberg) CHD- She feels stable on her current doses of mental health medications. [facility] Medical History HLD (hyperlipidemia) COPD (chronic obstructive pulmonary disease) Incisional pain Back pain Arthritis GERD (gastroesophageal reflux disease) Anxiety Depression Asthma Epigastric hernia Smoker Gastroparesis Hypothyroid Fibromyalgia Surgical History History of esophagogastroduodenoscopy (EGD) Hx of colonoscopy History of hernia repair History of cholecystectomy Family History Father Stroke Mother No problems noted. Family/Other Diabetes Coronary artery disease Brother No problems noted. Sister No problems noted. Social History Household Members: Friend(s) Housing: House Do you presently have visiting nurse or other home services: Yes Alcohol intake: unknown Comment: medicated, see MAR Patient Tobacco Use Status: Current everyday Tobacco user Tobacco use type: Cigarette Cigarette Packs Per Day: 0.5 Cigarettes Per Day: 10.0 Years Smoked: 20 e-Cigarette/Vaping Use: Never Used Substance Use Type: Marijuana service: No Current occupational status: disabled Cognitive needs: No Hearing needs: No Vision needs: No Questionnaire Thrive Questionnaire Date Thrive assessed: 05/15/24 I am a: Patient What is your living situation today?: I have a steady place to live Within the past 12 months, did the food you bought not last and you didn't have the money to get more?: Sometimes True Within the past 12 months, did you worry whether your food would run out before you got money to buy more?: Sometimes True Do you have trouble paying for medicines?: No Do you have trouble getting transportation to medical appointments?: No Do you have trouble paying your heating and electricity bill?: Yes Do you have trouble taking care of your child, family member or friend?: No Do you have trouble with day-to-day activities such as bathing, preparing meals, shopping, managing finances, etc.?: Yes Are you currently unemployed and looking for a job?: No Are you interested in more education?: No Currently or been in a relationship where the following occur: I choose not to answer THRIVE Score: 3 YASH-7 AMB Questionnaire YASH-7 Date YASH - 7 assessed: 05/15/24 Source: Developed by Drs. Abdirahman Lerner, Matilde Uriarte, Murphy Paez and colleagues, with an educational simone from [employer]. Review of Systems Const Denies headache(s) Eyes Denies loss of vision ENT Denies vertigo, Denies dizziness, Denies headache(s) and Denies sore throat Card Denies chest pain, Denies leg edema and Denies lightheadedness Resp Denies cough, Denies hemoptysis and Denies wheezing GI Denies abdominal pain, Denies melena, Denies constipation, Denies diarrhea and Denies vomiting Denies urinary frequency, Denies dysuria and Denies urinary urgency Musc Denies arthralgias, Denies joint swelling, Denies numbness and Denies tingling Neuro Denies Abnormal speech present, Denies behavioral changes, Denies vertigo, Denies dizziness, Denies headache(s), Denies loss of vision, Denies memory loss, Denies numbness and Denies tingling Psych Denies anxiety, Denies behavioral changes, Denies depression, Denies memory loss and Denies panic attacks Lio/Lymph Denies easy bleeding and Denies easy bruising Aller/Immun Denies wheezing Physical exam (Primary Care) Vital Signs: Last Vital Signs Temp 97.1 F 09/11/24 14:46 Pulse 83 09/11/24 14:46 BP 138/68 09/11/24 14:46 Pulse Ox 92 09/11/24 14:46 Oxygen Delivery Method Room Air 09/11/24 14:46 BMI result Body Mass Index 29.8 Tobacco/Smoking Status: Tobacco use Status Tobacco use date assessed 05/15/24 09/11/24 14:51 Patient Tobacco Use Status Current everyday Tobacco 09/11/24 14:51 Tobacco use type Cigarette 09/11/24 14:51 e-Cigarette/Vaping Use Never Used 09/11/24 14:51 Are you ready to quit: No Tobacco cessation counseling provided: Yes Items discussed: Nicotine replacement Relapse Prevention: discussed the importance of a supportive environment, discussed negative mood or depression after quitting, weight gain after smoking is common and discussed dietary, exercise and/or lifestyle changes Number of minutes spent counselin CPT code: 95550 - 4-10 Minutes Thrive Assessment: Date of Thrive Assessment Date Thrive assessed 05/15/24 09/11/24 14:51 Currently or been in a relationship where the following occur: I choose not to answer Const General: healthy appearing, no acute distress, alert and awake Nutritional Appearance: well nourished Orientation/consciousness: oriented to person, oriented to place and oriented to time HENMT Ears: TM's normal bilaterally General nose exam: Normal nasal mucous membranes and turbinates present Eyes Conjunctivae: conjunctivae normal Sclerae: sclerae normal Pupils: Equal, round and reactive pupils present Neck Neck: Yes no lymphadenopathy and Yes no JVD Thyroid: Thyroid normal Carotids: no bruits Resp Effort & Inspection: normal respiratory effort and not tachypneic Auscultation: no crackles, no rales, no rhonchi and no wheezes Cardio Rate: regular rate Rhythm: regular rhythm Heart sounds: no murmurs and normal S1 and S2 GI Palpation (GI): Soft to palpation, nontender, no hepatomegaly and no splenomegaly Auscultation: normal bowel sounds Skin General skin exam: no rashes or lesions noted and dry skin Neuro General: oriented to person, oriented to place and oriented to time Cranial nerves: Yes Equal, round and reactive pupils present Speech: No Abnormal speech present Gait exam (Neuro): Normal gait present Motor exam (neuro): no tremor noted Extrem Right upper extremity: full ROM Left upper extremity: full ROM Right lower extremity: full ROM; no edema Left lower extremity: full ROM; no edema Psych Mental Status: mental status grossly normal Speech and movement: Normal speech and movement present Affect: normal affect Attitude: cooperative Thought process: Normal thought process present Coding Level of Care Code Est Pt Level 4 (09616) Diagnoses Acute idiopathic gout of right wrist M10.031 Gout site: wrist Gout etiology: idiopathic Laterality: right MDD (major depressive disorder), recurrent episode, moderate F33.1 YASH (generalized anxiety disorder) F41.1 Hypomagnesemia E83.42 Hypothyroidism, unspecified type E03.9 Hypothyroidism type: unspecified Simple chronic bronchitis J41.0 COPD type: chronic bronchitis Chronic bronchitis type: simple Mixed hyperlipidemia E78.2 Hyperlipidemia type: mixed hyperlipidemia Additional Codes Vital Signs *Quality* - CPT code: 46711 - 4-10 Minutes ([id number]) Assessment & Plan Assessment & Plan (1) Gout attack: Code(s): M10.9 - Gout, unspecified Category: Medical Qualifiers: Gout site: wrist Gout etiology: idiopathic Laterality: right Qualified Code(s): M10.031 - Idiopathic gout, right wrist Plan: Patient with acute right wrist swelling and mild erythema. Has been taking Tylenol with better relief of her pain. Appears to be a gout flare which will treat with prednisone taper (2) MDD (major depressive disorder), recurrent episode, moderate: Code(s): F33.1 - Major depressive disorder, recurrent, moderate Category: Medical Plan: Patient now followed by a psychiatrist whom is managing her mental health medications. (3) YASH (generalized anxiety disorder): Code(s): F41.1 - Generalized anxiety disorder Category: Medical Plan: As per HPI, patient now followed by psychiatrist and a mental health therapist whom are managing her mental health medications. (4) Hypomagnesemia: Code(s): E83.42 - Hypomagnesemia Category: Medical Plan: Has a history of hypomagnesemia, will recheck magnesium (5) Hypothyroidism: Code(s): E03.9 - Hypothyroidism, unspecified Category: Medical Qualifiers: Hypothyroidism type: unspecified Qualified Code(s): E03.9 - Hypothyroidism, unspecified Plan: Patient continues on levothyroxine 75 mcg. Will recheck TSH to assure normal make any adjustments in levothyroxine dosing appropriate. (6) COPD (chronic obstructive pulmonary disease): Code(s): J44.9 - Chronic obstructive pulmonary disease, unspecified Category: Medical Qualifiers: COPD type: chronic bronchitis Chronic bronchitis type: simple Qualified Code(s): J41.0 - Simple chronic bronchitis Plan: Patient does wheezing on physical exam today. Does have a mild junky cough. . Advised to completely stopped smoking. We did discuss possibly doing lung cancer screening as she has been a smoker for many many years though she declines at this time. (7) HLD (hyperlipidemia): Code(s): E78.5 - Hyperlipidemia, unspecified Category: Medical Qualifiers: Hyperlipidemia type: mixed hyperlipidemia Qualified Code(s): E78.2 - Mixed hyperlipidemia Plan: Will recheck fasting lipid panel. She continues on high dose statin therapy. Goal LDL to be below 100 optimally below 70 Medications: New prednisone Take 3 tablets x2 days, 2 tablets x2 days, 1 tablet x2 days 10 mg PO DAILY 12 tabs 0RF 6 days M10.9 - Gout, unspecified Refilled acetaminophen 650 mg (2 x 325 mg) PO Q6H PRN 80 tabs 1RF for fever 10 days S16.1XXA - Strain of muscle, fascia and tendon at neck level, initial encounter
[2024-09-11 14:46] VITALS: BP 138/68; PULSE 83; TEMP 36.2; O2SAT 92; BMI 29.8
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
== END 2024-09-11 15:26 | disposition home or self-care (01) ==
LOC: HO.HMCH 14:43
PROVIDERS: PCP Physician Assistant; Visit Provider Physician Assistant
DX: M10.031 Idiopathic gout, right wrist (principal); F33.1 Major depressive disorder, recurrent, moderate; F41.1 Generalized anxiety disorder; E83.42 Hypomagnesemia; E03.9 Hypothyroidism, unspecified; J41.0 Simple chronic bronchitis; E78.2 Mixed hyperlipidemia

== ENCOUNTER → 2024-09-11 14:42 | Outpatient (BNVA) | payer OTHER, SELFPAY | PROVIDERS: PCP Physician Assistant; Visit Provider Physician Assistant | DX: J41.0 Simple chronic bronchitis (principal); E03.9 Hypothyroidism, unspecified; F17.210 Nicotine dependence, cigarettes, uncomplicated; K58.2 Mixed irritable bowel syndrome; M10.031 Idiopathic gout, right wrist; F33.1 Major depressive disorder, recurrent, moderate; F41.1 Generalized anxiety disorder; E83.42 Hypomagnesemia; E78.2 Mixed hyperlipidemia; S16.1XXA Strain of muscle, fascia and tendon at neck level, initial encounter; X58.XXXA Exposure to other specified factors, initial encounter; Y93.9 Activity, unspecified; Y92.9 Unspecified place or not applicable; Y99.9 Unspecified external cause status | CPT/HCPCS: 99212 ==